=== PATIENT | male | born 1960 | race Caucasian/White ===

== ENCOUNTER 2021-11-08 09:42 | Inpatient (IN) ==
--- NOTE | 2021-11-08 10:03 | Emergency Department Note ---
Impression & Plan Acute exacerbation of chronic obstructive pulmonary disease, Sepsis, COVID-19 ED Provider Note NAME: RAFA HUSSEIN AGE: 61 SEX: M : 1960 ARRIVES VIA: Walk-In INFORMANT: Patient, ED PROVIDER(S): Kraig Jimenez MD Chief Complaint: Shortness of breath, fever HPI: Patient presents with the above complaints. The patient states that he has had some worsening shortness of breath and exertional dyspnea over the last 1 week. Patient has a known history of COPD. Patient does follow with Dr. Sanders with pulmonology. The patient does not take an steroids during this bout of shortness of breath. The patient is a chronic smoker. Patient did have a fever that began at 3 AM this morning and given this coupled with his shortness of breath he presented here for further evaluation and treatment. The patient is not vaccinated for COVID-19 he was not tested prior. The patient should not take anything for his fever today. Patient denies any chest pain. Patient does Complain of some mild lower back discomfort but no falls trauma heavy lifting twisting or turning. Patient denies any lower extremity numbness tingling or bowel or bladder incontinence or retention. The patient denies any dysuria or hematuria the patient had a recent bowel movement. ROS: See HPI for pertinent positives and negatives. A total of 10 systems were reviewed and otherwise negative. Past medical history: See below Surgical history: See below Social history: See below Physical Exam: GENERAL: Wearing a mask. EYE EXAM: Normal conjunctiva. PERRL, no anisocoria and EOM's grossly intact w/o pain. NECK: Supple, no nuchal rigidity, no adenopathy, non-tender. No signs of meningismus. FROM of the neck with good chin to chest and neck extension. No stridor. LUNGS: Mild inspiratory and expiratory wheezes throughout. Normal chest wall mechanics. HEART: Tachycardic and regular, no MRG. ABDOMEN: Abdomen soft, non-tender, normo-active bowel sounds, no masses, no rebound or guarding. BACK: No reproducible midline or paraspinal low back pain. No CVA TTP. SKIN: No rashes and no bruising. UPPER EXTREMITIES: Upper extremities are grossly normal. LOWER EXTREMITIES: Grossly normal, no edema. No numbness or weakness. Negative Homans' sign bilaterally. NEURO EXAM: A&O x3, cranial nerves II-XII grossly intact, normal speech, moves all 4 extremities. Differential diagnoses: Sepsis, UTI, pneumonia, metabolic, electrolyte abnormalities, cardiac sources, intracerebral event, toxicologic, neurologic, as well as other pathologies. Course: Patient was seen and evaluated the bedside. Full history physical exam was performed. EKG interpreted by me Sinus tachycardia, rate of 105, normal intervals, normal axis, no ST elevations. Imaging Studies: See Below Cardiac monitoring: An order was placed for continuous cardiac monitoring. The monitor shows a rate of 107 with tachycardic and regular rhythm. MDM: Patient was seen due to concern for shortness of breath in the setting of fever. Blood work is obtained the patient did have IV fluids ordered antipyretics, antibiotics and a COVID swab. Patient was also ordered a breathing treatment, magnesium and steroids. Patient is a normal white count H&H and platelet count. The patient's kidney function is unremarkable. Hyponatremia noted at 130. The patient's magnesium low at 1.6. Magnesium is already ordered. Troponin is not elevated. COVID positive. Pro-Ministerio is negative. Patient's chest x-ray is negative. Patient was admitted to the medicine service by Dr. Bell. Patient did have some intermittent hypoxia at 89% but with deep breathing with rates up to 93%. Past Med/Surg History Medical History Alcohol abuse Allergies Asthma-COPD overlap syndrome Chronic obstructive pulmonary disease COPD exacerbation COPD, group C, by GOLD 2017 classification Dyspnea Esophageal thickening Lung nodule < 6cm on CT Moderate persistent asthma Rash and nonspecific skin eruption Tobacco abuse Tobacco use disorder Surgical History History of knee surgery Family History Father Diabetes Heart disease Hypertension Brother Diabetes Aunt Diabetes Uncle Diabetes Other No significant family history Denies family history of Ovarian cancer Prostate cancer Myocardial infarction Breast cancer Lung cancer Colorectal cancer Stroke Social History Smoking Status: Current every day smoker Tobacco Type: Cigarettes Age Started Using Tobacco: 17; Cigarettes Per Day: 5-10; Second Hand Exposure: No; Hx Alcohol Use: Yes Alcohol type: beer Hx Substance Use: No Preferred Language: Palauan Communication Ability: Effective Visual Impairment: No Limitations Hearing Ability: Normal marital status: Current Living Situation: Spouse current occupational status: employed Feels Safe at Home: Yes Childhood Exposure to Second-Hand Smoke: No Allergies Allergies Allergy/AdvReac Type Severity Reaction Status Date / Time No Known Allergies Allergy Verified 02/03/21 23:37 Home Meds Previous Rx's Medication Instructions Recorded albuterol sulfate 90 mcg/actuation 2 inh inhalation QID PRN shortness 09/21/21 aerosol inhaler (Ventolin HFA) of breath or wheezing #8.5 grams tiotropium bromide 2.5 2 puff inhalation DAILY #4 grams 09/21/21 mcg/actuation mist for inhalation (Spiriva Respimat) fluticasone furoate 200 1 inh inhalation DAILY #60 ea 10/16/21 mcg-vilanterol 25 mcg/dose inhalation powder (Breo Ellipta) ipratropium 0.5 mg-albuterol 3 mg 3 ml inhalation Q6H PRN wheezing 10/16/21 (2.5 mg base)/3 mL nebulization #90 mL soln azithromycin 250 mg tablet See Rx Instructions PO .COMPLEX #6 10/19/21 tabs roflumilast 500 mcg tablet 500 mcg PO DAILY #30 tabs 10/19/21 (Daliresp) Results & Data (ED) Vital Signs Vital Signs - 24 hr 11/08/21 09:52 11/08/21 11:00 11/08/21 11:00 Temperature 38.2 C H Temperature Source Temporal Artery Scan Pulse Rate 110 H Pulse Rate [Apical] 105 H Pulse Rhythm [Apical] Respiratory Rate 20 26 H 26 H Respiratory Effort / Characteristics Pursed Lip Short of Breath Pursed Lip Short of Breath Respiratory Depth Respiratory Pattern Tachypnea Blood Pressure 120/75 Blood Pressure [Left Arm] 171/95 H Blood Pressure Mean 90 Blood Pressure Mean [Left Arm] 120 Pulse Oximetry 93 100 100 Oxygen Delivery Method Room Air Nebulizer Nebulizer Sepsis Recent Fever Within 48 Hours No Sepsis New/Unexplained Change in Mental Status N/A Sepsis Action Taken by Nursing No Action Required 11/08/21 11:00 11/08/21 12:00 11/08/21 14:07 Temperature Temperature Source Pulse Rate Pulse Rate [Apical] 112 H 103 H Pulse Rhythm [Apical] Regular Respiratory Rate 24 20 Respiratory Effort / Characteristics Non-Labored Respiratory Depth Normal Respiratory Pattern Blood Pressure Blood Pressure [Left Arm] 141/77 H 131/81 Blood Pressure Mean Blood Pressure Mean [Left Arm] 98 97 Pulse Oximetry 100 94 93 Oxygen Delivery Method Nebulizer Room Air Room Air Sepsis Recent Fever Within 48 Hours Sepsis New/Unexplained Change in Mental Status Sepsis Action Taken by Group Home Medications Current Medication List: was personally reviewed by me Laboratory Data Attestation: I reviewed the patient's lab results. Result diagrams: 11/08/21 10:47 11/08/21 10:47 Lab Results 11/08/21 11/08/21 11/08/21 Range/Units 10:47 10:47 10:47 WBC 5.34 (4.8-10.8) K/ul RBC 4.58 L (4.63-6.08) M/uL Hgb 14.2 (14.0-18.0) g/dl Hct 41.0 (40.1-51.0) % MCV 89.5 (80.0-100.0) fL MCH 31.0 (25.0-34.0) pg MCHC 34.6 (32.0-36.0) g/dL RDW Std Deviation 43.0 (36.4-46.3) fL RDW Coeff of Scott 13.0 (11.5-14.5) % Plt Count 306 (130-400) K/uL MPV 9.7 (9.4-12.4) fL Immature Gran % (Auto) 0.6 % Neut % (Auto) 65.3 % Lymph % (Auto) 6.4 % Colbert % (Auto) 23.4 % Eos % (Auto) 3.4 % Baso % (Auto) 0.9 % Neut # (Auto) 3.49 (1.4-6.5) K/uL Lymph # (Auto) 0.34 L (1.2-3.4) K/uL [place] # (Auto) 1.25 H (0.24-0.82) K/uL Eos # (Auto) 0.18 (0-0.50) K/uL Baso # (Auto) 0.05 (0-0.2) K/uL Immature Gran # (Auto) 0.03 H (0.00-0.02) K/uL PT 10.9 (9.0-12.0) Seconds INR 1.0 (0.9-1.1) APTT 31.3 H (21.0-31.0) Seconds PTT Ratio 1.1 D-Dimer (0-500) ug/L FEU Sodium 130 L (136-145) mmol/L Potassium 3.9 (3.5-5.1) mmol/L Chloride 96 L (98-107) mmol/L Carbon Dioxide 24 (21-32) mmol/L Anion Gap 10 (3-11) BUN 10 (6-23) mg/dl Creatinine 0.69 (0.6-1.4) mg/dl Est Cr Clr Drug Dosing 92.0 ml/min Est GFR ( Amer) 117.9 ml/min Est GFR (Non-Af Amer) 101.7 ml/min BUN/Creatinine Ratio 14.5 (10-20) Glucose 89 (70-99(Fasting)) mg/dl Lactate (0.4-2.0) mmol/L Calcium 8.7 (8.5-10.1) mg/dl Magnesium 1.6 L (1.7-2.4) mg/dl Total Bilirubin 0.4 (0.2-1.0) mg/dl AST 16 (13-39) U/L ALT 13 (7-52) U/L Alkaline Phosphatase 58 (34-104) U/L Troponin I High Sens 10.7 (0-20) pg/ml C-Reactive Protein (0-0.5) mg/dl Total Protein 6.7 (6.0-8.3) gm/dl Albumin 4.0 (3.4-5.0) gm/dl Globulin 2.7 (2.5-4.0) gm/dl Albumin/Globulin Ratio 1.5 (0.9-2) Procalcitonin (0-0.5) ng/ml SARS-CoV-2, RNA, NAAT (NEGATIVE) 11/08/21 11/08/21 11/08/21 Range/Units 10:47 10:47 10:47 WBC (4.8-10.8) K/ul RBC (4.63-6.08) M/uL Hgb (14.0-18.0) g/dl Hct (40.1-51.0) % MCV (80.0-100.0) fL MCH (25.0-34.0) pg MCHC (32.0-36.0) g/dL RDW Std Deviation (36.4-46.3) fL RDW Coeff of Scott (11.5-14.5) % Plt Count (130-400) K/uL MPV (9.4-12.4) fL Immature Gran % (Auto) % Neut % (Auto) % Lymph % (Auto) % Colbert % (Auto) % Eos % (Auto) % Baso % (Auto) % Neut # (Auto) (1.4-6.5) K/uL Lymph # (Auto) (1.2-3.4) K/uL [place] # (Auto) (0.24-0.82) K/uL Eos # (Auto) (0-0.50) K/uL Baso # (Auto) (0-0.2) K/uL Immature Gran # (Auto) (0.00-0.02) K/uL PT (9.0-12.0) Seconds INR (0.9-1.1) APTT (21.0-31.0) Seconds PTT Ratio D-Dimer 300 (0-500) ug/L FEU Sodium (136-145) mmol/L Potassium (3.5-5.1) mmol/L Chloride (98-107) mmol/L Carbon Dioxide (21-32) mmol/L Anion Gap (3-11) BUN (6-23) mg/dl Creatinine (0.6-1.4) mg/dl Est Cr Clr Drug Dosing ml/min Est GFR ( Amer) ml/min Est GFR (Non-Af Amer) ml/min BUN/Creatinine Ratio (10-20) Glucose (70-99(Fasting)) mg/dl Lactate 1.0 (0.4-2.0) mmol/L Calcium (8.5-10.1) mg/dl Magnesium (1.7-2.4) mg/dl Total Bilirubin (0.2-1.0) mg/dl AST (13-39) U/L ALT (7-52) U/L Alkaline Phosphatase (34-104) U/L Troponin I High Sens (0-20) pg/ml C-Reactive Protein (0-0.5) mg/dl Total Protein (6.0-8.3) gm/dl Albumin (3.4-5.0) gm/dl Globulin (2.5-4.0) gm/dl Albumin/Globulin Ratio (0.9-2) Procalcitonin < 0.05 (0-0.5) ng/ml SARS-CoV-2, RNA, NAAT (NEGATIVE) 11/08/21 11/08/21 Range/Units 10:47 10:53 WBC (4.8-10.8) K/ul RBC (4.63-6.08) M/uL Hgb (14.0-18.0) g/dl Hct (40.1-51.0) % MCV (80.0-100.0) fL MCH (25.0-34.0) pg MCHC (32.0-36.0) g/dL RDW Std Deviation (36.4-46.3) fL RDW Coeff of Scott (11.5-14.5) % Plt Count (130-400) K/uL MPV (9.4-12.4) fL Immature Gran % (Auto) % Neut % (Auto) % Lymph % (Auto) % Colbert % (Auto) % Eos % (Auto) % Baso % (Auto) % Neut # (Auto) (1.4-6.5) K/uL Lymph # (Auto) (1.2-3.4) K/uL [place] # (Auto) (0.24-0.82) K/uL Eos # (Auto) (0-0.50) K/uL Baso # (Auto) (0-0.2) K/uL Immature Gran # (Auto) (0.00-0.02) K/uL PT (9.0-12.0) Seconds INR (0.9-1.1) APTT (21.0-31.0) Seconds PTT Ratio D-Dimer (0-500) ug/L FEU Sodium (136-145) mmol/L Potassium (3.5-5.1) mmol/L Chloride (98-107) mmol/L Carbon Dioxide (21-32) mmol/L Anion Gap (3-11) BUN (6-23) mg/dl Creatinine (0.6-1.4) mg/dl Est Cr Clr Drug Dosing ml/min Est GFR ( Amer) ml/min Est GFR (Non-Af Amer) ml/min BUN/Creatinine Ratio (10-20) Glucose (70-99(Fasting)) mg/dl Lactate (0.4-2.0) mmol/L Calcium (8.5-10.1) mg/dl Magnesium (1.7-2.4) mg/dl Total Bilirubin (0.2-1.0) mg/dl AST (13-39) U/L ALT (7-52) U/L Alkaline Phosphatase (34-104) U/L Troponin I High Sens (0-20) pg/ml C-Reactive Protein 0.80 H (0-0.5) mg/dl Total Protein (6.0-8.3) gm/dl Albumin (3.4-5.0) gm/dl Globulin (2.5-4.0) gm/dl Albumin/Globulin Ratio (0.9-2) Procalcitonin (0-0.5) ng/ml SARS-CoV-2, RNA, NAAT POSITIVE A* (NEGATIVE) Administered Medications Remdesivir 200 mg/ Sodium (Chloride) 250 mls @ 125 mls/hr IV TODAY@1330 STA; Protocol Stop: 11/08/21 15:02 Last Admin: 11/08/21 14:04 Dose: 125 mls/hr Documented By: BONIFACIO Discontinued Medications Acetaminophen (Acetaminophen 500 Mg Tab) 1,000 mg PO NOW STA Stop: 11/08/21 10:26 Last Admin: 11/08/21 10:55 Dose: 1,000 mg Documented By: CARLOS Albuterol (Albut/Ipratrop 3mg/0.5mg Neb 3 Ml Vial) 12 ml INH ONE STA Stop: 11/08/21 10:25 Last Admin: 11/08/21 10:59 Dose: 12 ml Documented By: CARLOS Sodium Chloride (Nss 1000ml) 1,000 mls @ 999 mls/hr IV .Q1H1M LIAM Stop: 11/08/21 11:25 Last Infusion: 11/08/21 12:40 Dose: 0 mls/hr Documented By: Admin: 11/08/21 10:55 Dose: 999 mls/hr Documented By: CARLOS Sodium Chloride (Nss 1000ml) 1,000 mls @ 999 mls/hr IV .Q1H1M LIAM Stop: 11/08/21 12:30 Last Infusion: 11/08/21 12:40 Dose: 0 mls/hr Documented By: Admin: 11/08/21 10:55 Dose: 999 mls/hr Documented By: CARLOS Magnesium Sulfate/Dextrose (Magnesium Sulfate / D5w) 1 gm in 100 mls @ 100 mls/hr IV NOW STA Stop: 11/08/21 11:24 Last Infusion: 11/08/21 14:07 Dose: 0 mls/hr Documented By: Admin: 11/08/21 11:40 Dose: 100 mls/hr Documented By: CHIO Ceftriaxone Sodium (Rocephin) 2,000 mg in 70 mls @ 140 mls/hr IV NOW STA Stop: 11/08/21 10:55 Last Infusion: 11/08/21 11:53 Dose: 0 mls/hr Documented By: Admin: 11/08/21 10:58 Dose: 140 mls/hr Documented By: CARLOS Methylprednisolone (Methylprednisolone 125 Mg/2 Ml Vial) 125 mg IV NOW STA Stop: 11/08/21 10:25 Last Admin: 11/08/21 10:56 Dose: 125 mg Documented By: CARLOS Imaging Data Radiologist's Impression: Chest X-Ray 11/08/21 10:24 XR chest 1V portable CLINICAL HISTORY: SEPSIS COMPARISON STUDY: Chest CT October 12, 2020. Chest radiograph February 03, 2021. FINDINGS: Lung volumes are normal. Lungs are clear. There is no pneumothorax or pleural effusion. Cardiac size is normal. Mediastinal contours are normal. There is no evidence for pulmonary edema. IMPRESSION: No acute cardiopulmonary findings. ACT 112: Negative or not required by law. Electronically signed by: Javed Longo M.D. 11/08/2021 11:03 AM Discharge Plan Visit Data Chief Complaint: Fever Stated Complaint: FEVER,SOB,BODY ACHES ED Provider: Kraig Jimenez Discharge Problem: Acute exacerbation of chronic obstructive pulmonary disease, Sepsis, COVID-19 Patient Disposition: Admitted As Inpatient Forms Stand Alone Forms: [facility] Prescriptions Prescriptions: No Action albuterol sulfate [Ventolin HFA] 90 mcg/actuation HFA aerosol inhaler 2 inh INH QID PRN (Reason: shortness of breath or wheezing) Qty: 8.5 5RF Spiriva Respimat 2.5 mcg/actuation mist 2 puff INH DAILY Qty: 4 5RF Breo Ellipta 200-25 mcg/dose blister with device 1 inh INH DAILY Qty: 60 5RF ipratropium-albuterol 0.5 mg-3 mg(2.5 mg base)/3 mL solution for nebulization 3 ml INH Q6H PRN (Reason: wheezing) Qty: 90 5RF azithromycin 250 mg tablet See Rx Instructions PO .COMPLEX Qty: 6 0RF Label Comments: Patient still taking, he was told to take every other day Rx Instructions: For 250 mg dose pack: take 500 mg today (day 1), then 250 mg for 4 days (days 2-5) PO Daliresp 500 mcg tablet 500 mcg PO DAILY Qty: 30 5RF Referrals Referrals: PCP,NO [Primary Care Provider] -
[2021-11-08] MEDS ORDERED: methylPREDNISolone 125 MG/2 ML VIAL IV STA (10:24)
[2021-11-08] MEDS ORDERED: ALBUT/IPRATROP 3MG/0.5MG NEB 3 ML VIAL INH STA (10:24)
[2021-11-08] MEDS ORDERED: ACETAMINOPHEN 500 MG TAB PO STA (10:25)
[2021-11-08] MEDS ORDERED: MAGNESIUM SULFATE / D5W 1 GM/100 ML BAG IV STA (10:25)
[2021-11-08] MEDS ORDERED: cefTRIAXone SODIUM 2,000 MG/70 ML BAG IV STA (10:26)
[2021-11-08] MEDS ORDERED: SODIUM CHLORIDE 0.9% 1000ML 1,000 ML IV SCH ×2 (10:30→11:30)
--- NOTE | 2021-11-08 11:04 | XRay Report ---
XR chest 1V portable CLINICAL HISTORY: SEPSIS COMPARISON STUDY: Chest CT October 12, 2020. Chest radiograph February 03, 2021. FINDINGS: Lung volumes are normal. Lungs are clear. There is no pneumothorax or pleural effusion. Car diac size is normal. Mediastinal contours are normal. There is no evidence for pulmonary edema. IMPRESSION: No acute cardiopulmonary findings. ACT 112: Negative or not required by law. Electronically signed by: Javed Longo M.D. 11/08/2021 11:03 AM
[2021-11-08 11:21] LABS: Basophils # (auto) 0.05 K/uL (0-0.2); Basophils % (auto) 0.9 %; Eosinophils # (auto) 0.18 K/uL (0-0.50); Eosinophils % (auto) 3.4 %; Hemoglobin 14.2 g/dl (14.0-18.0); Immature Granulocytes # (auto) 0.03 K/uL (0.00-0.02); Immature Granulocytes % (auto) 0.6 %; Lymphocytes # (auto) 0.34 K/uL (1.2-3.4); Lymphocytes % (auto) 6.4 %; Mean Corpuscular Hgb Conc 34.6 g/dL (32.0-36.0); Mean Corpuscular Volume 89.5 fL (80.0-100.0); Mean Platelet Volume 9.7 fL (9.4-12.4); Monocytes # (auto) 1.25 K/uL (0.24-0.82); Monocytes % (auto) 23.4 %; Neutrophils # (auto) 3.49 K/uL (1.4-6.5); Neutrophils % (auto) 65.3 %; Platelet Count 306 K/uL (130-400); Red Blood Count 4.58 M/uL (4.63-6.08); White Blood Count 5.34 K/ul (4.8-10.8)
[2021-11-08 11:34] LABS: Albumin Globulin Ratio 1.5 (0.9-2); BUN Creatinine Ratio 14.5 (10-20); Bilirubin,Total 0.4 mg/dl (0.2-1.0); Calcium 8.7 mg/dl (8.5-10.1); Est GFR (African American) 117.9 ml/min; Est GFR (Non-African American) 101.7 ml/min; Globulin 2.7 gm/dl (2.5-4.0); Magnesium 1.6 mg/dl (1.7-2.4); Potassium 3.9 mmol/L (3.5-5.1); Total Protein 6.7 gm/dl (6.0-8.3)
[2021-11-08 11:38] LABS: Partial Thromboplastin Ratio 1.1; Partial Thromboplastin Time 31.3 Seconds (21.0-31.0); Prothrombin Time 10.9 Seconds (9.0-12.0)
[2021-11-08 11:40] LABS: Troponin I High Sensitivity 10.7 pg/ml (0-20)
--- NOTE | 2021-11-08 12:21 | History & Physical Report ---
Date of Service November 08, 2021 Assessment & Plan (1) COVID-19: Plan: 1 day of symptoms on day of admission Unvaccinated Procalcitonin negative O2 sats < 94% on room air Remdesivir Dexamethasone 6mg IV BID (increased dose due to COPD exacerbation) Inventive spirometer and flutter valve (2) COPD exacerbation: Plan: Dexamethasone 6mg IV BID Combivent 2 puffs QID - can switch to nebulizers if ineffective but trying to reduce aerosol procedures with COVID-19 Doxycycline 100mg PO BID (switched from his usual azithromycin prophylaxis Continue his usual maintenance inhalers or hospital formulary equivalent (3) COPD, group C, by GOLD 2017 classification: Plan: As above FEV1/FVC 45% (4) Esophageal thickening: Plan: Noted on prior CT, recommend outpaitent EGD but for now especially while on steroids will start pantoprazole 40mg PO daily (5) Hypomagnesemia: Plan: Mg level 1.6. Mg sulphate 1g IV given. Plan VTE Prophylaxis - d-dimer normal, Lovenox 40mg SQ daily Diet - heart healthy Disposition - admit to med/tele Admission and Anticipated Discharge Date Admission Date: November 08, 2021 History of Present Illness Chief Complaint: Shortness of breath Primary Care Provider: NO PCP Allen Hernandez is a 61 year old male with COPD-asthma overlap who presents to the ER with shortness of breath, fever and generalized myalgias. Symptoms started with fever last night up to 101 F. He reports feeling his normal self yesterday although also notes some increased wheezing over the last week and needing his nebulizer more frequently which he put down to the increased humidity. He denies any sore throat, nasal congestion, sinus pain, loss of taste or smell, chest pain, abdominal pain or diarrhea. He was recently smoking 1 to 2 cigarettes a day up until 1 to 2 weeks ago when he quit smoking on advice of his wooden furniture polisher. In the ER he was diagnosed with COVID-19 and given mild hypoxia 90% on room air he was referred to medicine for admission and ongoing management of this. Allergies Allergy/AdvReac Type Severity Reaction Status Date / Time No Known Allergies Allergy Verified 02/03/21 23:37 Home Medications Medication Instructions Recorded Confirmed Type albuterol sulfate 90 mcg/actuation 2 inh inhalation QID PRN shortness 09/21/21 11/08/21 Rx aerosol inhaler (Ventolin HFA) of breath or wheezing #8.5 grams tiotropium bromide 2.5 2 puff inhalation DAILY #4 grams 09/21/21 11/08/21 Rx mcg/actuation mist for inhalation (Spiriva Respimat) fluticasone furoate 200 1 inh inhalation DAILY #60 ea 10/16/21 11/08/21 Rx mcg-vilanterol 25 mcg/dose inhalation powder (Breo Ellipta) ipratropium 0.5 mg-albuterol 3 mg 3 ml inhalation Q6H PRN wheezing 10/16/21 11/08/21 Rx (2.5 mg base)/3 mL nebulization #90 mL soln azithromycin 250 mg tablet See Rx Instructions PO .COMPLEX #6 10/19/21 11/08/21 Rx tabs roflumilast 500 mcg tablet 500 mcg PO DAILY #30 tabs 10/19/21 11/08/21 Rx (Daliresp) Past Med/Surg History Medical History Alcohol abuse Allergies Asthma-COPD overlap syndrome Chronic obstructive pulmonary disease COPD exacerbation COPD, group C, by GOLD 2017 classification Dyspnea Esophageal thickening Lung nodule < 6cm on CT Moderate persistent asthma Rash and nonspecific skin eruption Tobacco abuse Tobacco use disorder Surgical History History of knee surgery Family History Father Diabetes Heart disease Hypertension Brother Diabetes Aunt Diabetes Uncle Diabetes Other No significant family history Denies family history of Ovarian cancer Prostate cancer Myocardial infarction Breast cancer Lung cancer Colorectal cancer Stroke Social History Smoking Status: Former smoker Tobacco Type: Cigarettes Age Started Using Tobacco: 17; Cigarettes Per Day: few per week; Second Hand Exposure: No; Hx Alcohol Use: Yes Alcohol type: beer Hx Substance Use: No Preferred Language: Turkmen Communication Ability: Effective Visual Impairment: No Limitations Hearing Ability: Normal Mailroom Courier Required: No Beliefs That Will Affect Care: None marital status: Current Living Situation: Spouse current occupational status: employed Other Information That Helps Us Care for You: No Feels Safe at Home: Yes Safety Concerns: Feels Safe At This Time Childhood Exposure to Second-Hand Smoke: No Review of Systems Review of Systems: All systems reviewed & are unremarkable except as noted in HPI & below Physical Exam Constitutional: well developed; + not well nourished and no acute distress Eyes: PERRL, conjunctivae normal, anicteric sclerae ENMT: external ear and nose normal, oropharynx normal Neck: trachea midline, no thyromegaly Respiratory: normal respiratory effort and + prolonged expiratory phase; no respiratory distress Auscultation: + wheezes (expiratory); no diminished lung sounds, no crackles, no rales and no rhonchi Cardiovascular: Rate/Rhythm: regular rhythm and + tachycardic Heart Sounds: no murmur Extremities: normal capillary refill; no calf tenderness and no pedal edema Gastrointestinal (Abdomen): normal bowel sounds, soft, nontender, no hepatosplenomegaly Musculoskeletal: no cyanosis or clubbing, extremities motor strength 5/5 Skin: no rashes, warm and dry Neurologic: moves all extremities and awake; no focal motor deficits and not confused Psychiatric: A+Ox3, euthymic affect Genitourinary: no CVA tenderness Results & Data Results & Data ([facility]) Vital Signs (Past 12 Hours) Vital Signs Temp Pulse Pulse Resp BP BP Pulse Ox 11/08/21 11:00 100 11/08/21 11:00 26 H 100 11/08/21 11:00 105 H 26 H 171/95 H 100 11/08/21 09:52 38.2 C H 110 H 20 120/75 93 O2 Del Method 11/08/21 11:00 Nebulizer 11/08/21 11:00 Nebulizer 11/08/21 11:00 Nebulizer 11/08/21 09:52 Room Air Laboratory Results Abnormal lab results 11/08/21 11/08/21 11/08/21 Range/Units 10:47 10:47 10:47 RBC 4.58 L (4.63-6.08) M/uL Lymph # (Auto) 0.34 L (1.2-3.4) K/uL [place] # (Auto) 1.25 H (0.24-0.82) K/uL Immature Gran # (Auto) 0.03 H (0.00-0.02) K/uL APTT 31.3 H (21.0-31.0) Seconds Sodium 130 L (136-145) mmol/L Chloride 96 L (98-107) mmol/L Magnesium 1.6 L (1.7-2.4) mg/dl SARS-CoV-2, RNA, NAAT (NEGATIVE) 11/08/21 Range/Units 10:53 RBC (4.63-6.08) M/uL Lymph # (Auto) (1.2-3.4) K/uL [place] # (Auto) (0.24-0.82) K/uL Immature Gran # (Auto) (0.00-0.02) K/uL APTT (21.0-31.0) Seconds Sodium (136-145) mmol/L Chloride (98-107) mmol/L Magnesium (1.7-2.4) mg/dl SARS-CoV-2, RNA, NAAT POSITIVE A* (NEGATIVE) Diagnostic Findings XR chest 1V portable CLINICAL HISTORY: SEPSIS COMPARISON STUDY: Chest CT October 12, 2020. Chest radiograph February 03, 2021. FINDINGS: Lung volumes are normal. Lungs are clear. There is no pneumothorax or pleural effusion. Cardiac size is normal. Mediastinal contours are normal. There is no evidence for pulmonary edema. IMPRESSION: No acute cardiopulmonary findings. Medications Administered ER Medications Given: Duoneb 12ml NEB NSS 1L bolus Solu-medrol 125mg IV Magnesium sulphate 1g IV Ceftriaxone 2g IV ECG Indication: SOB/dyspnea Rhythm: sinus tachycardia Findings: + PAC Comparison ECG Date: from (Feb 04, 2021) Change: the following changes noted (PACs now present) Code Status & VTE Plan Code Status Full VTE Prophylaxis Plan VTE Prophylaxis will be ordered: Yes PG Care Time/CCT Total # of Minutes Spent Total Time Spent with Patient: Total time spent is greater than 50% in coordination of care (as documented) at patient's floor/unit and/or counseling patient: Coding Level of Care Code 36243 Initial Inpt Care Lvl 3 Diagnoses COVID-19 U07.1 COPD exacerbation J44.1 COPD, group C, by GOLD 2017 classification J44.9 Esophageal thickening K22.8 Hypomagnesemia E83.42
[2021-11-08 12:51] LABS: D Dimer 300 ug/L FEU (0-500)
[2021-11-08] MEDS ORDERED: REMDESIVIR 200 MG in SODIUM CHLORIDE 0.9% 210 ML IV STA (13:03)
[2021-11-08] MEDS ORDERED: POLYETHYLENE (MIRALAX) 17 GM PACK PO PRN (17:53)
[2021-11-08] MEDS ORDERED: ACETAMINOPHEN 325 MG TAB PO PRN (17:53)
[2021-11-08] MEDS ORDERED: IPRATROPIUM BROMIDE/ALBUTEROL respimat INH INH SCH (17:53)
--- NOTE | 2021-11-08 18:01 | Electrocardiogram Report ---
Test Reason : Blood Pressure : / mmHG Vent. Rate : 105 BPM Atrial Rate : 105 BPM P-R Int : 138 ms QRS Dur : 080 ms QT Int : 334 ms P-R-T Axes : 071 067 070 degrees QTc Int : 441 ms Sinus tachycardia with Premature atrial complexes Otherwise normal ECG When compared with ECG of 04-FEB-2021 01:38, Premature atrial complexes are now Present Confirmed by All Márquez ([id number]) on 11/08/2021 6:00:51 PM Referred By: Confirmed By:Constantino Márquez
[2021-11-08] MEDS: ALBUTEROL HFA 8 GM INHALER INH SCH ×2 (18:11→19:26)
[2021-11-08] MEDS: IPRATROPIUM BROMIDE HFA INHALER INH SCH ×2 (19:26→19:28)
[2021-11-08] MEDS: DOXYCYCLINE HYCLATE 100 MG CAP PO SCH (20:37)
[2021-11-08] MEDS: PANTOprazole 40 MG TAB PO SCH (20:37)
[2021-11-08] MEDS: dexAMETHasone 6 MG in SYRINGE 0 ML IV SCH (20:38)
[2021-11-08] MEDS ORDERED: ENOXAPARIN INJ 40 MG/0.4 ML SYR SQ SCH (21:00)
[2021-11-09 06:33] LABS: Hemoglobin 14.7 g/dl (14.0-18.0); Immature Granulocytes # (auto) 0.03 K/uL (0.00-0.02); Immature Granulocytes % (auto) 0.5 %; Lymphocytes # (auto) 0.59 K/uL (1.2-3.4); Lymphocytes % (auto) 10.7 %; Mean Corpuscular Hemoglobin 30.7 pg (25.0-34.0); Mean Corpuscular Volume 87.7 fL (80.0-100.0); Mean Platelet Volume 9.8 fL (9.4-12.4); Monocytes # (auto) 0.68 K/uL (0.24-0.82); Monocytes % (auto) 12.3 %; Neutrophils # (auto) 4.23 K/uL (1.4-6.5); Neutrophils % (auto) 76.5 %; Platelet Count 324 K/uL (130-400); RDW Coefficient of Variation 12.8 % (11.5-14.5); RDW Standard Deviation 41.1 fL (36.4-46.3); Red Blood Count 4.79 M/uL (4.63-6.08); White Blood Count 5.53 K/ul (4.8-10.8)
[2021-11-09 07:06] LABS: Albumin Globulin Ratio 1.6 (0.9-2); Albumin Level 3.9 gm/dl (3.4-5.0); BUN Creatinine Ratio 17.9 (10-20); Bilirubin,Total 0.3 mg/dl (0.2-1.0); Calcium 8.8 mg/dl (8.5-10.1); Creatinine Clr Calc Pharmacy 94.8 ml/min; Est GFR (African American) 119.4 ml/min; Globulin 2.5 gm/dl (2.5-4.0); Potassium 4.1 mmol/L (3.5-5.1); Total Protein 6.4 gm/dl (6.0-8.3)
[2021-11-09] MEDS: ALBUTEROL HFA 8 GM INHALER INH SCH ×3 (07:21→15:20)
[2021-11-09] MEDS: IPRATROPIUM BROMIDE HFA INHALER INH SCH ×3 (07:21→15:20)
--- NOTE | 2021-11-09 08:08 | Hospitalist Progress Note ---
Date of Service November 09, 2021 Assessment & Plan (1) COVID-19: Plan: 1st day of symptoms on day of admission Unvaccinated Procalcitonin negative O2 sats < 94% on room air, initially started on Remdesivir, CXR without changes of pneumonia Dexamethasone 6mg IV BID (increased dose due to COPD exacerbation) Inventive spirometer and flutter valve (2) COPD exacerbation: Plan: Dexamethasone 6mg IV BID Combivent 2 puffs QID - can switch to nebulizers if ineffective but trying to reduce aerosol procedures with COVID-19 Doxycycline 100mg PO BID (switched from his usual azithromycin prophylaxis Continue his usual maintenance inhalers or hospital formulary equivalent (3) COPD, group C, by GOLD 2017 classification: Plan: As above FEV1/FVC 45% this may have more of a play in hypoxia than covid, CXR without overt findings (4) Esophageal thickening: Plan: Noted on prior CT, recommend outpaitent EGD but for now especially while on steroids will start pantoprazole 40mg PO daily (5) Hypomagnesemia: Plan: replete Plan VTE Prophylaxis - d-dimer normal, Lovenox 40mg SQ daily Diet - heart healthy Disposition - admit to med/tele Admission and Anticipated Discharge Date Admission Date: November 08, 2021 Results & Data Results & Data ([facility]) Vital Signs (Past 12 Hours) Vital Signs Temp Pulse Pulse Resp BP Pulse Ox O2 Del Method 11/09/21 08:00 89 11/09/21 07:37 98.6 F 92 H 18 147/91 H 94 Room Air 11/09/21 07:23 96 H 16 96 Room Air 11/09/21 03:19 97.9 F 74 16 121/72 97 Room Air 11/08/21 23:11 98.2 F 87 16 133/81 94 Room Air 11/08/21 21:27 Room Air PG Care Time/CCT Total # of Minutes Spent Total Time Spent with Patient: Total time spent is greater than 50% in coordination of care (as documented) at patient's floor/unit and/or counseling patient: Coding Diagnoses COVID-19 U07.1 COPD exacerbation J44.1 COPD, group C, by GOLD 2017 classification J44.9 Esophageal thickening K22.8 Hypomagnesemia E83.42
[2021-11-09] MEDS ORDERED: FLUTICASONE/VILANTEROL 200/25MCG 14 PUFFS/INHALER INH SCH (09:00)
[2021-11-09] MEDS ORDERED: UMECLIDINIUM BROMIDE 62.5MCG/BLISTER 7 PUFFS/INHALER INH SCH ×2 (09:00)
[2021-11-09] MEDS ORDERED: ROFLUMILAST 500 MCG TAB PO SCH (09:00)
[2021-11-09] MEDS ORDERED: dexAMETHasone 6 MG in SYRINGE 0 ML IV SCH (09:00)
[2021-11-09] MEDS: DOXYCYCLINE HYCLATE 100 MG CAP PO SCH (10:22)
[2021-11-09] MEDS: PANTOprazole 40 MG TAB PO SCH (10:22)
[2021-11-09] MEDS: dexAMETHasone 6 MG in SYRINGE 0 ML IV SCH (10:37)
[2021-11-09] MEDS ORDERED: REMDESIVIR 100 MG in SODIUM CHLORIDE 0.9% 230 ML IV SCH (12:00)
--- NOTE | 2021-11-09 14:25 | Discharge Summary ---
Date of Service November 09, 2021 Admission HPI Per Admitting Provider Allen Hernandez is a 61 year old male with COPD-asthma overlap who presents to the ER with shortness of breath, fever and generalized myalgias. Symptoms started with fever last night up to 101 F. He reports feeling his normal self yesterday although also notes some increased wheezing over the last week and needing his nebulizer more frequently which he put down to the increased humidity. He denies any sore throat, nasal congestion, sinus pain, loss of taste or smell, chest pain, abdominal pain or diarrhea. 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 In the ER he was diagnosed with COVID-19 and given mild hypoxia 90% on room air he was referred to medicine for admission and ongoing management of this. Principal Diagnosis COVID infection Acute on chronic respiratory failureCOPD exacerbation Possible bronchitis Discharge Exam The patient appeared stable Vital signs as documented. Lungs surprisingly good air movement no focal loss or wheeze Cardiac exam, Rhythm is regular.. No murmurs, rubs or gallops. Abdominal exam reveals normal bowel sounds, soft non tender, no masses Extremities are nonedematous and both pedal pulses are normal. Neurologic exam is alert and oriented, no focal loss of strength or sensation Skin is without bruises or rashes Psychologically is without concerns for anxiety or depression. Discharge Data Allergies Allergy/AdvReac Type Severity Reaction Status Date / Time No Known Allergies Allergy Verified 02/03/21 23:37 Consultations 11/08/21 12:31 ED Decision to Admit Stat Hospital Course (1) COVID-19: 1st day of symptoms on day of admission Unvaccinated Procalcitonin negative O2 sats < 94% on room air, initially started on Remdesivir, CXR without changes of pneumonia Patient is now on room air even with exertion. He has no signs or symptoms of clinical pneumonia. Will be transition to prednisone at home. Remdsivir truncated due to his improvement (2) COPD exacerbation: Prednisone 20 twice daily for 5 additional days Resume home inhalation medications for COPD Doxycycline 100mg PO BID (switched from his usual azithromycin prophylaxis) (3) COPD, group C, by GOLD 2017 classification: As above FEV1/FVC 45% this may have more of a play in hypoxia than covid, CXR without overt findings (4) Esophageal thickening: Noted on prior CT, recommend outpaitent EGD (5) Hypomagnesemia: replete Total Time Total Time Spent Total Time Spent (In Minutes): It required greater than 30 minutes to prepare this patient for discharge Discharge Plan Discharge Items Patient Disposition: Home - Self-Care Reason For Visit: COVID-19, HYPOXIA Discharge Diagnosis: covid infection copd exacerbation bronchitis Esophageal thickening seen on CT scan recommend discussion with primary care for outpatient follow-up Activity: Per Instructions section Activity Comment: plenty of rest, good food and hydration Non-emergency contact: Primary Care Provider Call non-emergency contact if: your symptoms worsen Follow-up/Referrals: PCP,NO [Primary Care Provider] - Diet: Regular Addtl Attending Provider Instructions: You have been diagnosed with covid infection, it would be recommended that you quarantine yourself for 10 days from your first test or first symptoms, and if at the 10th day you have no symptoms the you can come off quarantine but use common sense precautions. Quarantine means attempting to stay away from people who have not had an active covid infection in the past, and if you have to be around others to wear a mask even if you are indoors, do not share a room to sleep in with others until you are out of quarantine. If you still have symptoms at the 10th day, continue to quarantine until you are symptom free for 48 hours You will be on a steroid taper for your COPD you will be on additional antibiotics for possible bronchitis once completing the doxycycline return to her azithromycin prophylaxis There are some irritation seen to your swallowing tube on CT scan on presentation please discuss this with your primary care provider for possible endoscopic evaluation once her pulmonary status improves Pending Studies at Discharge: Yes (your hepatitis mandatory testing and cultures are pending) Stand-Alone Forms: [facility] [employer] Smoking Cessation Medications and DC Order Prescriptions: New doxycycline hyclate 100 mg Capsule 100 mg PO BID Qty: 10 0RF prednisone 20 mg tablet 20 mg PO BID 5 Days Qty: 10 0RF pantoprazole 40 mg Tablet,Delayed Release (Dr/Ec) 40 mg PO QAM Qty: 30 0RF Continued albuterol sulfate [Ventolin HFA] 90 mcg/actuation HFA aerosol inhaler 2 inh INH QID PRN (Reason: shortness of breath or wheezing) Qty: 8.5 5RF Spiriva Respimat 2.5 mcg/actuation mist 2 puff INH DAILY Qty: 4 5RF Breo Ellipta 200-25 mcg/dose blister with device 1 inh INH DAILY Qty: 60 5RF ipratropium-albuterol 0.5 mg-3 mg(2.5 mg base)/3 mL solution for nebulization 3 ml INH Q6H PRN (Reason: wheezing) Qty: 90 5RF Daliresp 500 mcg tablet 500 mcg PO DAILY Qty: 30 5RF Discontinued azithromycin 250 mg tablet See Rx Instructions PO .COMPLEX Qty: 6 0RF Label Comments: Patient still taking, he was told to take every other day Rx Instructions: For 250 mg dose pack: take 500 mg today (day 1), then 250 mg for 4 days (days 2-5) PO Discharge Orders: Discharge Order (Routine); Ordered 11/09/21 Ordered By: Allen Treviño Admission Data Admit Date/Time: 11/08/21 12:23 Attending Provider: Allen Treviño Admit Provider: Prieto Bell Primary Care Provider: PCP,NO Other Providers: Prieto Bell Coding Level of Care Code D/C DAY MANAGEMENT >30 MINS Diagnoses COVID-19 U07.1 COPD exacerbation J44.1 COPD, group C, by GOLD 2017 classification J44.9 Esophageal thickening K22.8 Hypomagnesemia E83.42
== END 2021-11-09 15:30 | disposition home or self-care (01) | DRG 177 ==
LOC: ED 09:42 → SUATTDRO 12:23 → 2S 12:23

== ENCOUNTER 2023-08-28 01:02 | Inpatient (IN) ==
--- NOTE | 2023-08-28 01:15 | Emergency Department Note ---
Impression & Plan Acute exacerbation of chronic obstructive airways disease ED Provider Note Provider: Mart Baird MD DATE OF SERVICE: 08/28/2023 CHIEF COMPLAINT: Difficulty breathing HISTORY OF PRESENT ILLNESS: Patient is a 63-year-old gentleman history of COPD/asthma presenting here today reporting worsening breathing over the past approximately 5 to 6 days. Worsening over the weekend the last several days. Does not have air conditioning for tomorrow in the warm weather he thinks is contributing. Have been around folks who have recently been sick with a respiratory complaint. Denies fever. No chest pain. Using breathing treatments at home without much improvement. Denies swelling. Denies recent travel. Denies abdominal pain or nausea vomiting or diarrhea. Did receive 125 mg of Solu-Medrol for EMS as well as a DuoNeb. Maybe some slight improvement by the patient's report. PAST MEDICAL HISTORY: As noted above MEDICATIONS: Reviewed home medications. SOCIAL HISTORY: Smoker PHYSICAL EXAM: GENERAL: alert and oriented in no acute distress on stretcher Head: normocephalic and atraumatic EYES: No injection, discharge or icterus. NECK: Trachea midline. ENT: Mucous membranes pink and moist. LUNGS: Airway patent. Some increased work of breathing with diffuse expiratory wheeze appreciable. HEART: Regular rate and rhythm. No chest wall tenderness ABDOMEN: Soft and non-tender, without guarding or rebound. SKIN: Acyanotic, warm, without notable rashes. Mildly diaphoretic upon arrival. EXTREMITIES: Without swelling, tenderness or deformity NEUROLOGICAL: No focal deficits. No aphasia. No facial droop or slurred speech. EK bpm sinus tachycardia with PAC. No acute ST segment elevation or depression with a bit of respiratory artifact a QTc of 448. CONTINUOUS CARDIAC MONITORING: was ordered and showed a heart rate of 90s-120s bpm in normal sinus rhythm to sinus tachycardia occasional PACs 1 view chest x-ray per my interpretation: No evidence of pneumothorax or pulmonary edema. No free air. Normal cardiac silhouette without evidence of pneumonia. Patient's laboratory studies and imaging reviewed. Differential includes Reactive airway disease, pneumonia, pneumothorax, COPD, CHF, infections, cardiac ischemia, pulmonary embolism, musculoskeletal, gastrointestinal, as well as other pathologies. IMPRESSION/MEDICAL DECISION MAKING: Patient with increased work of breathing but not hypoxic upon arrival. Significantly wheezy. Received DuoNeb and 125 mg Solu-Medrol already. Reviewed prior notes and follows with pulmonary for history of asthma/COPD. Given his work of breathing discussed with him he is agreeable for a trial of BiPAP to see if this would help. Will obtain chest x-ray. EKG obtained but denies chest pain. Troponin sent but lower suspicion for ACS. No significant swelling and I doubt fluid overload. With his significant wheezing low suspicion this represents PE. Given additional DuoNeb here. Respiratory viral panel sent. Patient does not appear that encephalopathic. Blood work here does show very slight acidosis 7.32 with a CO2 of 51. Leukocytosis of 13.4 without anemia or thrombocytopenia. Will cover with a dose of azithromycin based on labs. Chest x-ray on my review without findings consistent with pneumonia and will avoid broad-spectrum antibiotics at this time. Patient is more comfortable on the BiPAP. Chemistries without significant renal dysfunction or evidence of hepatitis. Very mild hyponatremia of 133 but do not believe this is contributing. Respiratory viral panel negative. Troponin normal. Discussed with the patient findings and his respiratory status. Will bring him in for further treatment. Patient is agreeable with this plan. Hospitalist team contacted. DIAGNOSIS: Acute COPD exacerbation DISPOSITION: Hospitalist will evaluate Patient was agreeable with this plan. Critical Care I have personally spent 31 minutes of critical care time in the direct management of this patient. This includes bedside care, interpretation of diagnostic studies, and testing, discussion with consultants, patient, and family members, and other required patient management activities. These 31 minutes is in excess of all separately billable procedures. Past Med/Surg History Problem List Acute exacerbation of chronic obstructive airways disease (Acute) Inflammatory arthritis Pseudogout Hand arthritis CMC arthritis Carpal tunnel syndrome Hand numbness Hand weakness Wrist arthritis Allergic rhinitis due to weed pollen Chronic rhinitis Tobacco use Eosinophilic asthma Allergic asthma Severe persistent asthma Hypomagnesemia COPD exacerbation Esophageal thickening Rash and nonspecific skin eruption Allergies Lung nodule < 6cm on CT Moderate persistent asthma Asthma-COPD overlap syndrome Alcohol abuse Tobacco abuse Dyspnea COPD, group C, by GOLD 2017 classification Tobacco use disorder Chronic obstructive pulmonary disease (Chronic) Hypoxia (Acute 04/25/14) Pneumonia (Acute) Medical History Sepsis COVID-19 Surgical History History of knee surgery Family History Father Diabetes Heart disease Hypertension Brother Diabetes Aunt Diabetes Uncle Diabetes Other No significant family history Denies family history of Ovarian cancer Prostate cancer Myocardial infarction Breast cancer Lung cancer Colorectal cancer Stroke Social History Smoking Status: Former smoker Tobacco Type: Cigarettes Age Started Using Tobacco: 17; Cigarettes Per Day: few per week; Second Hand Exposure: No; Do You Dip or Chew Tobacco: No; Hx Alcohol Use: Yes Alcohol type: beer Alcohol Intake Frequency: 4 or More x per/Week Hx Substance Use: No Preferred Language: Bahamian Communication Ability: Effective Visual Impairment: No Limitations Hearing Ability: Normal Exercise Rider Required: No Beliefs That Will Affect Care: None marital status: Current Living Situation: Spouse current occupational status: employed Feels Safe at Home: Yes Childhood Exposure to Second-Hand Smoke: No Diet: regular caffeine: Yes Dental Care, Regularly: No Physical Activity Frequency: Daily Seatbelt Use: always Sunscreen Use: No Assistive Devices: Glasses and Nebulizer Allergies Allergies Allergy/AdvReac Type Severity Reaction Status Date / Time No Known Allergies Allergy Verified 08/11/23 09:26 Home Meds Previous Rx's Medication Instructions Recorded albuterol sulfate 90 mcg/actuation 2 inh inhalation QID PRN shortness 09/02/22 aerosol inhaler (Ventolin HFA) of breath or wheezing #3 Inhalers montelukast 10 mg tablet 10 mg PO DAILY #90 tabs 11/06/22 roflumilast 500 mcg tablet 500 mcg PO DAILY #90 tabs 11/13/22 (Daliresp) ipratropium 0.5 mg-albuterol 3 mg 3 ml inhalation Q6H PRN wheezing 12/09/22 (2.5 mg base)/3 mL nebulization #90 mL soln fluticasone furoate 200 1 inh inhalation DAILY #3 Inhalers 02/26/23 mcg-vilanterol 25 mcg/dose inhalation powder (Breo Ellipta) diclofenac sodium 75 mg 75 mg PO BID #60 tabs 06/25/23 tablet,delayed release tiotropium bromide 2.5 2 puff inhalation DAILY #4 grams 08/11/23 mcg/actuation mist for inhalation (Spiriva Respimat) Results & Data (ED) Vital Signs Vital Signs - 24 hr 08/28/23 01:10 08/28/23 01:13 08/28/23 01:37 Temperature 36.9 C Temperature Source Oral Pulse Rate 110 H 109 H Pulse Rate [Right Finger] Pulse Rhythm Pulse Rhythm [Right Finger] Respiratory Rate 27 H Respiratory Effort / Characteristics Labored Respiratory Depth Normal Respiratory Pattern Regular Tachypnea Blood Pressure 219/118 H Blood Pressure [Right Arm] Blood Pressure Mean 151 Blood Pressure Mean [Right Arm] Blood Pressure Position [Right Arm] Pulse Oximetry 91 96 Oxygen Delivery Method Room Air BiPAP Oxygen Flow Rate Fraction of Inspired Oxygen SaO2/FiO2 Ratio Sepsis Recent Fever Within 48 Hours No Sepsis New/Unexplained Change in Mental Status N/A Sepsis Action Taken by Nursing No Action Required 08/28/23 01:37 08/28/23 01:37 08/28/23 01:41 Temperature Temperature Source Pulse Rate Pulse Rate [Right Finger] 62 101 H Pulse Rhythm Regular Pulse Rhythm [Right Finger] Respiratory Rate 19 22 Respiratory Effort / Characteristics Non-Labored Spontaneous Non-Labored Spontaneous Respiratory Depth Normal Respiratory Pattern Blood Pressure Blood Pressure [Right Arm] Blood Pressure Mean Blood Pressure Mean [Right Arm] Blood Pressure Position [Right Arm] Pulse Oximetry 91 95 96 Oxygen Delivery Method Nasal Cannula Room Air BiPAP Oxygen Flow Rate 2 Fraction of Inspired Oxygen 30 SaO2/FiO2 Ratio Sepsis Recent Fever Within 48 Hours Sepsis New/Unexplained Change in Mental Status Sepsis Action Taken by Nursing 08/28/23 01:43 08/28/23 02:01 08/28/23 03:00 Temperature Temperature Source Pulse Rate 101 H Pulse Rate [Right Finger] 100 H 88 Pulse Rhythm Pulse Rhythm [Right Finger] Regular Respiratory Rate 20 22 18 Respiratory Effort / Characteristics Spontaneous Labored Short of Breath Non-Labored Spontaneous Respiratory Depth Normal Normal Respiratory Pattern Regular Regular Blood Pressure Blood Pressure [Right Arm] 150/98 H 136/97 Blood Pressure Mean Blood Pressure Mean [Right Arm] 115 110 Blood Pressure Position [Right Arm] Semi-fowlers Pulse Oximetry 96 96 97 Oxygen Delivery Method BiPAP BiPAP Oxygen Flow Rate Fraction of Inspired Oxygen 30 30 SaO2/FiO2 Ratio 323 Sepsis Recent Fever Within 48 Hours Sepsis New/Unexplained Change in Mental Status Sepsis Action Taken by Nursing Laboratory Data 08/28/23 01:00 08/28/23 01:00 Lab Results 08/28/23 08/28/23 08/28/23 Range/Units 01:00 01:00 01:00 WBC 13.49 H (4.8-10.8) K/ul RBC 4.90 (4.70-6.10) M/uL Hgb 15.1 (14.0-18.0) g/dl Hct 44.9 (42.0-52.0) % MCV 91.6 (80.0-100.0) fL MCH 30.8 (25.0-34.0) pg MCHC 33.6 (32.0-36.0) g/dL RDW Std Deviation 47.4 H (36.4-46.3) fL RDW Coeff of Scott 14.0 (11.5-14.5) % Plt Count 330 (130-400) K/uL MPV 10.2 (9.4-12.4) fL Immature Gran % (Auto) 0.4 % Neut % (Auto) 60.4 % Lymph % (Auto) 22.2 % Hawkins % (Auto) 9.1 % Eos % (Auto) 7.2 % Baso % (Auto) 0.7 % Neut # (Auto) 8.15 H (1.40-6.50) K/uL Lymph # (Auto) 2.99 (1.20-3.40) K/uL Hawkins # (Auto) 1.23 H (0.11-0.59) K/uL Eos # (Auto) 0.97 H (0.00-0.50) K/uL Baso # (Auto) 0.09 (0.00-0.20) K/uL Immature Gran # (Auto) 0.06 (0.01-0.20) K/uL PT Cancelled 9.8 INR Cancelled 0.9 APTT Cancelled PTT Ratio VBG pH (7.36-7.41) VBG pCO2 (38-50) mmHg VBG pO2 mmHg VBG HCO3 mmol/L VBG O2 Saturation % VBG Base Excess mEq/L Sodium (136-145) mmol/L Potassium (3.5-5.1) mmol/L Chloride (98-107) mmol/L Carbon Dioxide (21-32) mmol/L Anion Gap (3-11) BUN (6-23) mg/dl Creatinine (0.6-1.4) mg/dl Est Cr Clr Drug Dosing ml/min Est GFR ( Amer) ml/min Est GFR (Non-Af Amer) ml/min BUN/Creatinine Ratio (10-20) Glucose (70-99(Fasting)) mg/dl Calcium (8.6-10.3) mg/dl Magnesium (1.7-2.4) mg/dl Total Bilirubin (0.2-1.0) mg/dl AST (13-39) U/L ALT (7-52) U/L Alkaline Phosphatase (34-104) U/L Troponin I High Sens (0-20) pg/ml Total Protein (6.0-8.3) gm/dl Albumin (3.4-5.0) gm/dl Globulin (2.5-4.0) gm/dl Albumin/Globulin Ratio (0.9-2) Adenovirus (PCR) (NotDetected) B. pertussis DNA (PCR) (NotDetected) B.parapertussis DNA PCR (NotDetected) C. pneumoniae DNA (PCR) (NotDetected) Coronavirus OC43 (PCR) (NotDetected) Coronavirus HKU1 (PCR) (NotDetected) Coronavirus 229E (PCR) (NotDetected) SARS-CoV-2 (PCR) (NotDetected) Coronavirus NL63 (PCR) (NotDetected) Human Metapneumovir PCR (NotDetected) Influenza Type A (PCR) (NotDetected) Influenza Type B (PCR) (NotDetected) M. pneumoniae (PCR) (NotDetected) Parainfluenza 1 (PCR) (NotDetected) Parainfluenza 2 (PCR) (NotDetected) Parainfluenza 3 (PCR) (NotDetected) Parainfluenza 4 (PCR) (NotDetected) RSV (PCR) (NotDetected) Entero/Rhino (PCR) (NotDetected) 08/28/23 08/28/23 08/28/23 Range/Units 01:00 01:00 01:09 WBC (4.8-10.8) K/ul RBC (4.70-6.10) M/uL Hgb (14.0-18.0) g/dl Hct (42.0-52.0) % MCV (80.0-100.0) fL MCH (25.0-34.0) pg MCHC (32.0-36.0) g/dL RDW Std Deviation (36.4-46.3) fL RDW Coeff of Scott (11.5-14.5) % Plt Count (130-400) K/uL MPV (9.4-12.4) fL Immature Gran % (Auto) % Neut % (Auto) % Lymph % (Auto) % Hawkins % (Auto) % Eos % (Auto) % Baso % (Auto) % Neut # (Auto) (1.40-6.50) K/uL Lymph # (Auto) (1.20-3.40) K/uL Hawkins # (Auto) (0.11-0.59) K/uL Eos # (Auto) (0.00-0.50) K/uL Baso # (Auto) (0.00-0.20) K/uL Immature Gran # (Auto) (0.01-0.20) K/uL PT INR APTT 29 PTT Ratio Cancelled 1.1 VBG pH 7.32 L (7.36-7.41) VBG pCO2 51 H (38-50) mmHg VBG pO2 38 mmHg VBG HCO3 26 mmol/L VBG O2 Saturation 64.8 % VBG Base Excess -0.5 mEq/L Sodium 133 L (136-145) mmol/L Potassium 4.2 (3.5-5.1) mmol/L Chloride 98 (98-107) mmol/L Carbon Dioxide 27 (21-32) mmol/L Anion Gap 8 (3-11) BUN 13 (6-23) mg/dl Creatinine 0.74 (0.6-1.4) mg/dl Est Cr Clr Drug Dosing 91.0 ml/min Est GFR ( Amer) 113.0 ml/min Est GFR (Non-Af Amer) 97.5 ml/min BUN/Creatinine Ratio 17.6 (10-20) Glucose 143 H (70-99(Fasting)) mg/dl Calcium 9.1 (8.6-10.3) mg/dl Magnesium 1.9 (1.7-2.4) mg/dl Total Bilirubin 0.3 (0.2-1.0) mg/dl AST 20 (13-39) U/L ALT 16 (7-52) U/L Alkaline Phosphatase 88 (34-104) U/L Troponin I High Sens 8.4 (0-20) pg/ml Total Protein 7.2 (6.0-8.3) gm/dl Albumin 4.4 (3.4-5.0) gm/dl Globulin 2.8 (2.5-4.0) gm/dl Albumin/Globulin Ratio 1.6 (0.9-2) Adenovirus (PCR) Not Detected (NotDetected) B. pertussis DNA (PCR) Not Detected (NotDetected) B.parapertussis DNA PCR Not Detected (NotDetected) C. pneumoniae DNA (PCR) Not Detected (NotDetected) Coronavirus OC43 (PCR) Not Detected (NotDetected) Coronavirus HKU1 (PCR) Not Detected (NotDetected) Coronavirus 229E (PCR) Not Detected (NotDetected) SARS-CoV-2 (PCR) Not Detected (NotDetected) Coronavirus NL63 (PCR) Not Detected (NotDetected) Human Metapneumovir PCR Not Detected (NotDetected) Influenza Type A (PCR) Not Detected (NotDetected) Influenza Type B (PCR) Not Detected (NotDetected) M. pneumoniae (PCR) Not Detected (NotDetected) Parainfluenza 1 (PCR) Not Detected (NotDetected) Parainfluenza 2 (PCR) Not Detected (NotDetected) Parainfluenza 3 (PCR) Not Detected (NotDetected) Parainfluenza 4 (PCR) Not Detected (NotDetected) RSV (PCR) Not Detected (NotDetected) Entero/Rhino (PCR) Not Detected (NotDetected) Administered Medications Discontinued Medications Albuterol (Albut/Ipratrop 3mg/0.5mg Neb 3 Ml Vial) 12 ml NEB ONE ONE; Protocol Stop: 08/28/23 01:11 Last Admin: 08/28/23 01:41 Dose: 12 ml Documented By: NDO Azithromycin (Azithromycin 250 Mg Tab) 500 mg PO NOW ONE Stop: 08/28/23 01:39 Last Admin: 08/28/23 01:41 Dose: 500 mg Documented By: ASW Discharge Plan Visit Data Chief Complaint: Shortness of Breath/Dyspnea Stated Complaint: SOB ED Provider: Mart Baird Discharge Problem: Acute exacerbation of chronic obstructive airways disease Patient Disposition: Being Evaluated by Hospitalist Forms Stand Alone Forms: [facility] Prescriptions Prescriptions: No Action albuterol sulfate [Ventolin HFA] 90 mcg/actuation HFA aerosol inhaler 2 inh INH QID PRN (Reason: shortness of breath or wheezing) Qty: 3 3RF montelukast 10 mg tablet 10 mg PO DAILY Qty: 90 3RF Daliresp 500 mcg tablet 500 mcg PO DAILY Qty: 90 3RF ipratropium-albuterol 0.5 mg-3 mg(2.5 mg base)/3 mL solution for nebulization 3 ml INH Q6H PRN (Reason: wheezing) Qty: 90 5RF Breo Ellipta 200-25 mcg/dose blister with device 1 inh INH DAILY Qty: 3 3RF Spiriva Respimat 2.5 mcg/actuation mist 2 puff INH DAILY Qty: 4 5RF diclofenac sodium 75 mg tablet,delayed release (DR/EC) 75 mg PO BID Qty: 60 2RF Referrals Referrals: Thony Shaffer DO [Primary Care Provider] -
[2023-08-28 01:25] LABS: Base Excess VBG -0.5 mEq/L; Basophils # (auto) 0.09 K/uL (0.00-0.20); Basophils % (auto) 0.7 %; Eosinophils # (auto) 0.97 K/uL (0.00-0.50); Eosinophils % (auto) 7.2 %; HCO3 VBG 26 mmol/L; Hematocrit (blood only) 44.9 % (42.0-52.0); Hemoglobin 15.1 g/dl (14.0-18.0); Immature Granulocytes # (auto) 0.06 K/uL (0.01-0.20); Immature Granulocytes % (auto) 0.4 %; Lymphocytes # (auto) 2.99 K/uL (1.20-3.40); Lymphocytes % (auto) 22.2 %; Mean Corpuscular Hemoglobin 30.8 pg (25.0-34.0); Mean Corpuscular Hgb Conc 33.6 g/dL (32.0-36.0); Mean Corpuscular Volume 91.6 fL (80.0-100.0); Mean Platelet Volume 10.2 fL (9.4-12.4); Monocytes # (auto) 1.23 K/uL (0.11-0.59); Monocytes % (auto) 9.1 %; Neutrophils # (auto) 8.15 K/uL (1.40-6.50); Neutrophils % (auto) 60.4 %; Oxygen Saturation VBG 64.8 %; PCO2 VBG 51 mmHg (38-50); PO2 VBG 38 mmHg; Platelet Count 330 K/uL (130-400); RDW Standard Deviation 47.4 fL (36.4-46.3); White Blood Count 13.49 K/ul (4.8-10.8); pH VBG 7.32 (7.36-7.41)
[2023-08-28] MEDS: ALBUT/IPRATROP 3MG/0.5MG NEB 3 ML VIAL NEB ONE (01:41)
[2023-08-28] MEDS: AZITHROMYCIN 250 MG TAB PO ONE (01:41)
[2023-08-28 01:46] LABS: Albumin Globulin Ratio 1.6 (0.9-2); Albumin Level 4.4 gm/dl (3.4-5.0); BUN Creatinine Ratio 17.6 (10-20); Bilirubin,Total 0.3 mg/dl (0.2-1.0); Calcium 9.1 mg/dl (8.6-10.3); Est GFR (Non-African American) 97.5 ml/min; Globulin 2.8 gm/dl (2.5-4.0); Magnesium 1.9 mg/dl (1.7-2.4); Potassium 4.2 mmol/L (3.5-5.1); Total Protein 7.2 gm/dl (6.0-8.3)
[2023-08-28 01:59] LABS: INR 0.9 (0.9-1.1); Partial Thromboplastin Ratio 1.1; Partial Thromboplastin Time 29 Seconds (21-31); Prothrombin Time 9.8 Seconds (9.0-12.0)
[2023-08-28 02:18] LABS: Adenovirus PCR Not Detected (NotDetected); Bordetella parapertussis PCR Not Detected (NotDetected); Bordetella pertussis PCR Not Detected (NotDetected); Chlamydia pneumoniae PCR Not Detected (NotDetected); Coronavirus 229E PCR Not Detected (NotDetected); Coronavirus CoV-2 (COVID19)PCR Not Detected (NotDetected); Coronavirus HKU1 PCR Not Detected (NotDetected); Coronavirus NL63 PCR Not Detected (NotDetected); Coronavirus OC43PCR Not Detected (NotDetected); Human Metapneumovirus PCR Not Detected (NotDetected); Influenza A PCR Not Detected (NotDetected); Influenza B PCR Not Detected (NotDetected); Mycoplasma pneumoniae PCR Not Detected (NotDetected); Parainfluenza Virus 1 PCR Not Detected (NotDetected); Parainfluenza Virus 2 PCR Not Detected (NotDetected); Parainfluenza Virus 3 PCR Not Detected (NotDetected); Parainfluenza Virus 4 PCR Not Detected (NotDetected); Respiratory Syncytial VirusPCR Not Detected (NotDetected); Rhinovirus/Enterovirus PCR Not Detected (NotDetected)
--- NOTE | 2023-08-28 02:43 | History & Physical Report ---
Date of Service August 28, 2023 Assessment & Plan (1) Acute exacerbation of chronic obstructive airways disease: Plan: 63yo male with Asthma-COPD overlap syndrome presenting with acute exacerbation of COPD. Patient endorses several days of progressive SOB, congestion, cough and wheeze. Respiratory distress upon arrival with increased WOB requiring placement of BiPAP. Patient now more comfortable. VBG acceptable. No distress. Likely trigger being weather change - recent heat and humidity. Patient also with component of allergic asthma and is to follow up with Allergy-Immunology regarding potential biologics for asthma management. -Admit to medical with telemetry -Wean BiPAP as tolerated. No home O2 use -Solumedrol 30mg IV BID -DuoNebs q 6 hours scheduled -Albuterol q2hr PRN -Continue Breo -Continue Roflumilast -Continue Singulair -Azithromycin 250mg IV daily -Flutter valve -Incentive spirometry -Smoking cessation - patient still smokes a couple of cigarettes daily. Does not wish to use a patch now Plan F/E/N - Saline lock. Electrolytes WNL. Regular diet as tolerated Ppx - Lovenox Code - Full. NO prior history of intubation Dispo - Admit to medical with telemetry History of Present Illness Chief Complaint: shortness of breath Primary Care Provider: Thony Shaffer DO Allen Hernandez is a pleasant 63yo male with history of Asthma-COPD overlap syndrome. He follows with Pulmonary - most recent PFTs 04/10/23 consistent with severe obstruction with significant bronchodilator response - severe airtrapping with moderately reduced diffusion. Patient is on Breo and Spiriva at home as well as Daliresp. He reports progressively worsening cough, wheeze, chest congestion and SOB for the last several days. His breathing became more difficult with the heat - he doesn't have air conditioning at home. He has been taking his home medications with minimal improvement. He denies fever, chills, chest pain, abdominal pain, nausea, vomiting, diarrhea or urinary complaints. No edema. Patient given Solumedrol 125mg IV by EMS prior to arrival In the ER he is afebrile, tachycardic at 110bpm, hypertensive at 219/118, tachypneic with RR of 27, 91% on RA. VBG 7.32/51/38. BiPAP was placed for increased work of breathing. During my encounter patient appeared to be breathing comfortably, NAD No additional complaints at this time ER Course: Albuterol Azithromycin Allergies Allergy/AdvReac Type Severity Reaction Status Date / Time No Known Allergies Allergy Verified 08/11/23 09:26 Home Medications Medication Instructions Recorded Confirmed Type albuterol sulfate 90 mcg/actuation 2 inh inhalation QID PRN shortness 09/02/22 08/28/23 Rx aerosol inhaler (Ventolin HFA) of breath or wheezing #3 Inhalers montelukast 10 mg tablet 10 mg PO DAILY #90 tabs 11/06/22 08/28/23 Rx roflumilast 500 mcg tablet 500 mcg PO DAILY #90 tabs 11/13/22 08/28/23 Rx (Daliresp) ipratropium 0.5 mg-albuterol 3 mg 3 ml inhalation Q6H PRN wheezing 12/09/22 08/28/23 Rx (2.5 mg base)/3 mL nebulization #90 mL soln fluticasone furoate 200 1 inh inhalation DAILY #3 Inhalers 02/26/23 08/28/23 Rx mcg-vilanterol 25 mcg/dose inhalation powder (Breo Ellipta) diclofenac sodium 75 mg 75 mg PO BID #60 tabs 06/25/23 08/28/23 Rx tablet,delayed release tiotropium bromide 2.5 2 puff inhalation DAILY #4 grams 08/11/23 08/28/23 Rx mcg/actuation mist for inhalation (Spiriva Respimat) Past Med/Surg History Problem List Acute exacerbation of chronic obstructive airways disease (Acute) Inflammatory arthritis Pseudogout Hand arthritis CMC arthritis Carpal tunnel syndrome Hand numbness Hand weakness Wrist arthritis Allergic rhinitis due to weed pollen Chronic rhinitis Tobacco use Eosinophilic asthma Allergic asthma Severe persistent asthma Hypomagnesemia COPD exacerbation Esophageal thickening Rash and nonspecific skin eruption Allergies Lung nodule < 6cm on CT Moderate persistent asthma Asthma-COPD overlap syndrome Alcohol abuse Tobacco abuse Dyspnea COPD, group C, by GOLD 2017 classification Tobacco use disorder Chronic obstructive pulmonary disease (Chronic) Hypoxia (Acute 04/25/14) Pneumonia (Acute) Medical History Sepsis COVID-19 Surgical History History of knee surgery Family History Father Diabetes Heart disease Hypertension Brother Diabetes Aunt Diabetes Uncle Diabetes Other No significant family history Denies family history of Ovarian cancer Prostate cancer Myocardial infarction Breast cancer Lung cancer Colorectal cancer Stroke Social History Smoking Status: Former smoker Tobacco Type: Cigarettes Age Started Using Tobacco: 17; Cigarettes Per Day: few per week; Second Hand Exposure: No; Do You Dip or Chew Tobacco: No; Hx Alcohol Use: Yes Alcohol type: beer Alcohol Intake Frequency: 4 or More x per/Week Hx Substance Use: No Preferred Language: Congolese Communication Ability: Effective Visual Impairment: No Limitations Hearing Ability: Normal Fire Information Officer Required: No Beliefs That Will Affect Care: None marital status: Current Living Situation: Spouse current occupational status: employed Feels Safe at Home: Yes Childhood Exposure to Second-Hand Smoke: No Diet: regular caffeine: Yes Dental Care, Regularly: No Physical Activity Frequency: Daily Seatbelt Use: always Sunscreen Use: No Assistive Devices: Glasses and Nebulizer Review of Systems Review of Systems: All systems reviewed & are unremarkable except as noted in HPI & below Physical Exam Physical Exam: General: patient resting comfortably, NAD, non-toxic in appearance, AA&O x 4, BiPAP in place 10/5, 30% FiO2 Skin: warm, dry, intact, no rashes or lesions HEENT: NC/AT, PERRL, EOMI, anicteric sclera, conjunctiva without injection, external ear normal to inspection and nontender, nares patent, moist mucus membr anes, dentition intact, no oropharyngeal lesions, neck supple, trachea midline, no LAD, no thyromegaly, no JVD Heart: +S1/S2, regular, no m/r/g Lungs: equal air entry bilaterally, coarse breath sounds with end-expiratory wheezing diffusely Abd: +BS, soft, NT/ND, no masses/organomegaly/ascites Ext: warm, 2+ pulses in UE/LE bilaterally, no clubbing/cyanosis or edema Neuro: nonfocal, patient AA&O x 4, speech intact, no facial droop, moving all extremities on command with equal strength 5/5 Results & Data Results & Data Vital Signs (Past 12 Hours) Vital Signs Temp Pulse Pulse Resp BP BP Pulse Ox 08/28/23 02:01 100 H 22 150/98 H 96 08/28/23 01:43 101 H 20 96 08/28/23 01:41 101 H 22 96 08/28/23 01:37 62 19 95 08/28/23 01:37 91 08/28/23 01:37 96 08/28/23 01:13 109 H 08/28/23 01:10 36.9 C 110 H 27 H 219/118 H 91 O2 Del Method O2 Flow Rate FiO2 08/28/23 02:01 BiPAP 08/28/23 01:43 30 08/28/23 01:41 BiPAP 30 08/28/23 01:37 Room Air 08/28/23 01:37 Nasal Cannula 2 08/28/23 01:37 BiPAP 08/28/23 01:13 08/28/23 01:10 Room Air Laboratory Results Laboratory Results WBC 13.49 K/ul (4.8-10.8) H 08/28/23 01:00 RBC 4.90 M/uL (4.70-6.10) 08/28/23 01:00 Hgb 15.1 g/dl (14.0-18.0) 08/28/23 01:00 Hct 44.9 % (42.0-52.0) 08/28/23 01:00 MCV 91.6 fL (80.0-100.0) 08/28/23 01:00 MCH 30.8 pg (25.0-34.0) 08/28/23 01:00 MCHC 33.6 g/dL (32.0-36.0) 08/28/23 01:00 RDW Std Deviation 47.4 fL (36.4-46.3) H 08/28/23 01:00 RDW Coeff of Scott 14.0 % (11.5-14.5) 08/28/23 01:00 Plt Count 330 K/uL (130-400) 08/28/23 01:00 MPV 10.2 fL (9.4-12.4) 08/28/23 01:00 Immature Gran % (Auto) 0.4 % 08/28/23 01:00 Neut % (Auto) 60.4 % 08/28/23 01:00 Lymph % (Auto) 22.2 % 08/28/23 01:00 Cameron % (Auto) 9.1 % 08/28/23 01:00 Eos % (Auto) 7.2 % 08/28/23 01:00 Baso % (Auto) 0.7 % 08/28/23 01:00 Neut # (Auto) 8.15 K/uL (1.40-6.50) H 08/28/23 01:00 Lymph # (Auto) 2.99 K/uL (1.20-3.40) 08/28/23 01:00 Cameron # (Auto) 1.23 K/uL (0.11-0.59) H 08/28/23 01:00 Eos # (Auto) 0.97 K/uL (0.00-0.50) H 08/28/23 01:00 Baso # (Auto) 0.09 K/uL (0.00-0.20) 08/28/23 01:00 Immature Gran # (Auto) 0.06 K/uL (0.01-0.20) 08/28/23 01:00 PT 9.8 Seconds (9.0-12.0) 08/28/23 01:00 PT Cancelled 08/28/23 01:00 INR 0.9 (0.9-1.1) 08/28/23 01:00 INR Cancelled 08/28/23 01:00 APTT 29 Seconds (21-31) 08/28/23 01:00 APTT Cancelled 08/28/23 01:00 PTT Ratio 1.1 08/28/23 01:00 PTT Ratio Cancelled 08/28/23 01:00 VBG pH 7.32 (7.36-7.41) L 08/28/23 01:00 VBG pCO2 51 mmHg (38-50) H 08/28/23 01:00 VBG pO2 38 mmHg 08/28/23 01:00 VBG HCO3 26 mmol/L 08/28/23 01:00 VBG O2 Saturation 64.8 % 08/28/23 01:00 VBG Base Excess -0.5 mEq/L 08/28/23 01:00 Sodium 133 mmol/L (136-145) L 08/28/23 01:00 Potassium 4.2 mmol/L (3.5-5.1) 08/28/23 01:00 Chloride 98 mmol/L (98-107) 08/28/23 01:00 Carbon Dioxide 27 mmol/L (21-32) 08/28/23 01:00 Anion Gap 8 (3-11) 08/28/23 01:00 BUN 13 mg/dl (6-23) 08/28/23 01:00 Creatinine 0.74 mg/dl (0.6-1.4) 08/28/23 01:00 Est Cr Clr Drug Dosing 91.0 ml/min 08/28/23 01:00 Est GFR ( Amer) 113.0 ml/min 08/28/23 01:00 Est GFR (Non-Af Amer) 97.5 ml/min 08/28/23 01:00 BUN/Creatinine Ratio 17.6 (10-20) 08/28/23 01:00 Glucose 143 mg/dl (70-99(Fasting)) H 08/28/23 01:00 Calcium 9.1 mg/dl (8.6-10.3) 08/28/23 01:00 Magnesium 1.9 mg/dl (1.7-2.4) 08/28/23 01:00 Total Bilirubin 0.3 mg/dl (0.2-1.0) 08/28/23 01:00 AST 20 U/L (13-39) 08/28/23 01:00 ALT 16 U/L (7-52) 08/28/23 01:00 Alkaline Phosphatase 88 U/L (34-104) 08/28/23 01:00 Total Protein 7.2 gm/dl (6.0-8.3) 08/28/23 01:00 Albumin 4.4 gm/dl (3.4-5.0) 08/28/23 01:00 Globulin 2.8 gm/dl (2.5-4.0) 08/28/23 01:00 Albumin/Globulin Ratio 1.6 (0.9-2) 08/28/23 01:00 Adenovirus (PCR) Not Detected (NotDetected) 08/28/23 01:09 B. pertussis DNA (PCR) Not Detected (NotDetected) 08/28/23 01:09 B.parapertussis DNA PCR Not Detected (NotDetected) 08/28/23 01:09 C. pneumoniae DNA (PCR) Not Detected (NotDetected) 08/28/23 01:09 Coronavirus OC43 (PCR) Not Detected (NotDetected) 08/28/23 01:09 Coronavirus HKU1 (PCR) Not Detected (NotDetected) 08/28/23 01:09 Coronavirus 229E (PCR) Not Detected (NotDetected) 08/28/23 01:09 SARS-CoV-2 (PCR) Not Detected (NotDetected) 08/28/23 01:09 Coronavirus NL63 (PCR) Not Detected (NotDetected) 08/28/23 01:09 Human Metapneumovir PCR Not Detected (NotDetected) 08/28/23 01:09 Influenza Type A (PCR) Not Detected (NotDetected) 08/28/23 01:09 Influenza Type B (PCR) Not Detected (NotDetected) 08/28/23 01:09 M. pneumoniae (PCR) Not Detected (NotDetected) 08/28/23 01:09 Parainfluenza 1 (PCR) Not Detected (NotDetected) 08/28/23 01:09 Parainfluenza 2 (PCR) Not Detected (NotDetected) 08/28/23 01:09 Parainfluenza 3 (PCR) Not Detected (NotDetected) 08/28/23 01:09 Parainfluenza 4 (PCR) Not Detected (NotDetected) 08/28/23 01:09 RSV (PCR) Not Detected (NotDetected) 08/28/23 01:09 Entero/Rhino (PCR) Not Detected (NotDetected) 08/28/23 01:09 Diagnostic Findings CXR - per my interpretation lungs appear to be hyperinflated, no obvious infiltrate, edema or PTX Code Status & VTE Plan VTE Prophylaxis Plan VTE Prophylaxis will be ordered: Yes PG Care Time/CCT Total # of Minutes Spent Total Time Spent with Patient: Total time spent is greater than 50% in coordination of care (as documented) at patient's floor/unit and/or counseling patient: Coding Level of Care Code 75309 INT INP/OBS CARE 2/55MIN Diagnoses Acute exacerbation of chronic obstructive airways disease J44.1
[2023-08-28 02:48] LABS: Troponin I High Sensitivity 8.4 pg/ml (0-20)
[2023-08-28] MEDS ORDERED: ALBUTEROL 0.5% NEB SOLN 2.5 MG/0.5 ML VIAL NEB PRN (04:19)
[2023-08-28] MEDS ORDERED: ONDANSETRON INJ 2 MG/ML 2 ML VIAL IV PRN (04:19)
[2023-08-28] MEDS ORDERED: ACETAMINOPHEN 325 MG TAB PO PRN (04:19)
[2023-08-28] MEDS: methylPREDNISolone 30 MG in SYRINGE 0 ML IV SCH (04:39)
[2023-08-28] MEDS: ALBUT/IPRATROP 3MG/0.5MG NEB 3 ML VIAL NEB SCH (06:00)
--- NOTE | 2023-08-28 06:47 | XRay Report ---
XR chest 1V portable CLINICAL HISTORY: Dyspnea TECHNIQUE: Single frontal radiograph of the chest was obtained. Comparison: Comparison is made to chest radiograph 05/02/2023 FINDINGS: No lines and tubes are seen. The cardiomediastinal silhouette is normal. The lungs are clear. No evid ence of pleural effusion or pneumothorax. IMPRESSION: No acute abnormalities and in particular no radiographic evidence of pneumonia. ACT 112: Negative or not required by law. Electronically signed by: Issac Walker M.D. 08/28/2023 6:46 AM
--- NOTE | 2023-08-28 07:10 | Hospitalist Progress Note ---
Date of Service August 28, 2023 Assessment & Plan Plan Patient is 63 yo M with PMHx of inflammatory arthritis, lung nodule (< [address]), tobacco use, and asthma-COPD overlap syndrome presenting with acute exacerbation of COPD. Patient endorses several days of progressive SOB, co ngestion, cough and wheeze. Respiratory distress upon arrival with increased WOB requiring placement of BiPAP. Patient now more comfortable. VBG acceptable. No distress. 1) Acute exacerbation of chronic obstructive airways disease: Likely trigger being weather change - recent heat and humidity. Patient also with component of allergic asthma and is to follow up with Allergy-Immunology regarding potential biologics for asthma management. -Wean BiPAP as tolerated. No home O2 use -Solumedrol 30mg IV BID; DuoNebs q 6 hours scheduled; Albuterol q2hr PRN -Continue Breo (steroid, LABA); Continue Roflumilast; Continue Singulair -Azithromycin 250mg IV daily -Flutter valve; Incentive spirometry -Smoking cessation: patient still smokes a couple of cigarettes daily. Does not wish to use a patch now. Plan F/E/N - Saline lock. Electrolytes WNL. Regular diet as tolerated Ppx - Lovenox Code - Full. (no prior history of intubation) Dispo - Admit to medical with telemetry Admission and Anticipated Discharge Date Admission Date: August 28, 2023 Subjective This morning the patient if feeing better this morning, less respiratory distress, Patient does not use O2 at all at home Review of Systems Constitutional: + fatigue; no fever and no chills Respiratory: + cough, + chest congestion, + dyspnea o n exertion and + sputum production (occasional intermittent, no change from baseline) Cardiovascular: no chest pain and no palpitations Gastrointestinal: + vomiting; no abdominal pain, no nausea , no change in bowel habits, no constipation and no diarrhea/loose stools Genitourinary: no dysuria or no urinary frequency Neurologic: no tingling, no numbness and no headache(s) Physical Exam Constitutional: WD/WN, vitals as above Respiratory: Auscultation: + wheezes; + lungs not clear to auscultation and no crackles Cardiovascular: RRR, no murmur, no edema Extremities: normal capillary refill; no calf tenderness and no pedal edema Results & Data Results & Data Vital Signs (Past 12 Hours) Vital Signs Temp Pulse Pulse Resp BP BP Pulse Ox 08/28/23 06:17 102 H 22 95 08/28/23 04:46 08/28/23 04:46 36.2 C L 86 16 139/91 96 08/28/23 03:00 88 18 136/97 97 08/28/23 02:01 100 H 22 150/98 H 96 08/28/23 01:43 101 H 20 96 08/28/23 01:41 101 H 22 96 08/28/23 01:37 62 19 95 08/28/23 01:37 91 08/28/23 01:37 96 08/28/23 01:13 109 H 08/28/23 01:10 36.9 C 110 H 27 H 219/118 H 91 O2 Del Method O2 Flow Rate FiO2 08/28/23 06:17 Nasal Cannula 2 08/28/23 04:46 Nasal Cannula 3 08/28/23 04:46 Nasal Cannula 3 08/28/23 03:00 BiPAP 30 08/28/23 02:01 BiPAP 08/28/23 01:43 30 08/28/23 01:41 BiPAP 30 08/28/23 01:37 Room Air 08/28/23 01:37 Nasal Cannula 2 08/28/23 01:37 BiPAP 08/28/23 01:13 08/28/23 01:10 Room Air
[2023-08-28] MEDS: ROFLUMILAST 500 MCG TAB PO SCH (09:45)
[2023-08-28] MEDS: DICLOFENAC SODIUM 75 MG TABCR PO SCH (09:45)
[2023-08-28] MEDS: MONTELUKAST SODIUM 10 MG TABLET PO SCH (09:45)
[2023-08-28] MEDS: FLUTICASONE/VILANTEROL 200/25MCG 14 PUFFS/INHALER INH SCH (09:46)
[2023-08-28] MEDS: ENOXAPARIN INJ 40 MG/0.4 ML SYR SQ SCH (09:46)
--- NOTE | 2023-08-28 10:13 | Electrocardiogram Report ---
Test Reason : Blood Pressure : / mmHG Vent. Rate : 115 BPM Atrial Rate : 115 BPM P-R Int : 146 ms QRS Dur : 076 ms QT Int : 324 ms P-R-T Axes : 079 076 087 degrees QTc Int : 448 ms Sinus tachycardia with Premature atrial complexes Otherwise normal ECG When compared with ECG of 15-NOV-2021 19:15, Premature ventricular complexes are no longer Present Premature atrial complexes are now Present Vent. rate has increased BY 41 BPM Confirmed by Nicolas Robbins ([id number]) on 08/28/2023 10:12:28 AM Referred By: REFERRED SELF Confirmed By:Nicolas Robbins
--- NOTE | 2023-08-28 15:43 | Discharge Summary ---
Date of Service August 28, 2023 Admission HPI Per Admitting Provider Patient is a pleasant 63 yo male with history of Asthma-COPD overlap syndrome. He follows with Pulmonary - most recent PFTs 04/10/23 consistent with severe obstruction with significant bronchodilator response - severe airtrapping with moderately reduced diffusion. Patient is on Breo and Spiriva at home as well as Daliresp. He reports progressively worsening cough, wheeze, chest congestion and SOB for the last several days. His breathing became more difficult with the heat - he doesn't have air conditioning at home. He has been taking his home medications with minimal improvement. He denies fever, chills, chest pain, abdominal pain, nausea, vomiting, diarrhea or urinary complaints. No edema. Patient given Solumedrol 125mg IV by EMS prior to arrival In the ER he is afebrile, tachycardic at 110bpm, hypertensive at 219/118, tachypneic with RR of 27, 91% on RA. VBG 7.32/51/38. BiPAP was placed for increased work of breathing. During my encounter patient appeared to be breathing comfortably, NAD No additional complaints at this time ER Course: Albuterol Azithromycin Admission Exam Per Admitting Provider General: patient resting comfortably, NAD, non-toxic in appearance, AA&O x 4, BiPAP in place /, 30% FiO2 Skin: warm, dry, intact, no rashes or lesions HEENT: NC/AT, PERRL, EOMI, anicteric sclera, conjunctiva without injection, external ear normal to inspection and nontender, nares patent, moist mucus membranes, dentition intact, no oropharyngeal lesions, neck supple, trachea midline, no LAD, no thyromegaly, no JVD Heart: +S1/S2, regular, no m/r/g Lungs: equal air entry bilaterally, coarse breath sounds with end-expiratory wheezing diffusely Abd: +BS, soft, NT/ND, no masses/organomegaly/ascites Ext: warm, 2+ pulses in UE/LE bilaterally, no clubbing/cyanosis or edema Neuro: nonfocal, patient AA&O x 4, speech intact, no facial droop, moving all extremities on command with equal strength 5/5 Principal Diagnosis COPD exacerbation Discharge Exam Constitutional WD/WN, vitals as above Respiratory Auscultation: + wheezes; + lungs not clear to auscultation and no crackles Cardiovascular RRR, no murmur, no edema Extremities: normal capillary refill; no calf tenderness and no pedal edema Gastrointestinal (Abdomen) normal bowel sounds, soft, nontender, no hepatosplenomegaly Psychiatric A+Ox3, euthymic affect Discharge Data Allergies Allergy/AdvReac Type Severity Reaction Status Date / Time No Known Allergies Allergy Verified 08/11/23 09:26 Consultations 08/28/23 02:16 ED Decision to Admit Stat Hospital Course (1) Acute exacerbation of chronic obstructive airways disease: (2) Tobacco use: (3) Asthma-COPD overlap syndrome: Plan 1) Acute exacerbation of chronic obstructive airways disease: Likely trigger being weather change - recent heat and humidity. Patient also with component of allergic asthma and is to follow up with Allergy-Immunology regarding potential biologics for asthma management. -Weaned off 2 L O2 NC this morning. No home O2 use. -Solumedrol 30mg IV BID; DuoNebs q6 hours scheduled; Albuterol q2hr PRN during inpatient stay. -Continue Breo (steroid, LABA); Continue Roflumilast; Continue Singulair -Flutter valve and Incentive spirometry even as outpatient -Smoking cessation: patient still smokes a couple of cigarettes daily. Does not wish to use a patch now. -Azithromycin 250mg, PO, daily, for 4 more days as outpatient - Steroid taper: prednisone, PO, 60 mg Day 1, 50 mg Day 2, 40 mg Day 3, 30 mg Day 4, 20 mg Day 5, 10 mg Day 6 Total Time Total Time Spent Total Time Spent (In Minutes): <30 Discharge Plan Discharge Items Patient Disposition: Home - Self-Care Reason For Visit: SHORTNESS OF BREATH Discharge Diagnosis: COPD exacerbation Activity: Resume your previous activity Non-emergency contact: Primary Care Provider Call non-emergency contact if: you have any medication questions, your symptoms worsen and your temperature is above 101.5 Follow-up/Referrals: Thony Shaffer DO [Primary Care Provider] - 09/05/23 1:30 pm Diet: Regular Addtl Attending Provider Instructions: You were admitted to the hospital for [_]. You were treated with [_]. A discharge summary will be sent to your primary care physician to ensure continuity of care. Please bring this discharge summary with you to your next office appointment so that your provider can review it at that time. Follow-up appointments: We have requested a follow-up appointment with your primary care physician within one week of discharge. Please call their office if you do not hear from them. Keep all your follow-up appointments as already scheduled. If you cannot make an appointment, notify your provider. Medications: Your medication list has been reviewed and reconciled upon discharge to ensure accuracy and continuity of care. An updated list of all your medications is included with your hospital discharge paperwork. Please review this list closely, and make note of any changes. We sent a new medication called azithromycin to your pharmacy. Take azithromycin, 250 mg/one tablet, daily, for next four days. We sent a new medication called prednisone to your pharmacy. Take prednisone, 60 mg Day 1, 50 mg Day 2, 40 mg Day 3, 30 mg Day 4, 20 mg Day 5, 10 mg Day 6. Take your medications as instructed; do not skip a dose of your medicines. Make sure all of your doctors know every medicine you are taking (including yiok-qwu-cwdexgz medicines, vitamins, and supplements). Call your primary care provider before taking any new medicines (including bkjl-rlj-eqgxesm medicines, vitamins, and supplements), because some of these may interact with your current medications, or may make your symptoms worse. Tell your primary care provider if you cannot afford your medications. CONTACT YOUR PRIMARY CARE PROVIDER if you experience any of the following: fevers, chills, shortness of breath at rest, symptoms not improving with rescue inhaler Difficulty following your treatment plan, or difficulty taking medications CALL 911 OR GO TO THE EMERGENCY DEPARTMENT if you experience any of the following: Sudden, severe abdominal pain or nausea/vomiting Severe chest pain, or chest pain that radiates (moves) to your jaw or arm Sudden, severe shortness of breath or difficulty breathing Thank you for allowing us to participate in your care Pending Studies at Discharge: No Stand-Alone Forms: [facility] [employer], Smoking Cessation Medications and DC Order Prescriptions: New prednisone 10 mg tablet 10 mg PO DIRECTED Qty: 21 0RF Rx Instructions: see taper instructions: 60 mg, Day 1 50 mg, Day 2 40 mg, Day 3 30 mg, Day 4 20 mg, Day 5 10 mg, Day 6 azithromycin 250 mg tablet 250 mg PO DAILY 4 Days Qty: 4 0RF Rx Instructions: start on day 2 of therapy Continued albuterol sulfate [Ventolin HFA] 90 mcg/actuation HFA aerosol inhaler 2 inh INH QID PRN (Reason: shortness of breath or wheezing) Qty: 3 3RF montelukast 10 mg tablet 10 mg PO DAILY Qty: 90 3RF Daliresp 500 mcg tablet 500 mcg PO DAILY Qty: 90 3RF ipratropium-albuterol 0.5 mg-3 mg(2.5 mg base)/3 mL solution for nebulization 3 ml INH Q6H PRN (Reason: wheezing) Qty: 90 5RF Breo Ellipta 200-25 mcg/dose blister with device 1 inh INH DAILY Qty: 3 3RF Spiriva Respimat 2.5 mcg/actuation mist 2 puff INH DAILY Qty: 4 5RF diclofenac sodium 75 mg tablet,delayed release (DR/EC) 75 mg PO BID Qty: 60 2RF Discharge Orders: Discharge Order (Routine); Ordered 08/28/23 Ordered By: All Beckett Admission Data Admit Date/Time: 08/28/23 02:27 Attending Provider: Nando Mays Admit Provider: Emerita Hammer Primary Care Provider: Thony Shaffer Other Providers: Emerita Hammer Other Interventions: Discharge Summary Assessment (RN) Last Done: 08/28/23 14:44 Supervising Physician Co-Signing Physician Notes I personally examined the patient and verified all rosado points of history and exam, discussed case, and agree with decision making with Dr Beckett feeling better and would like to go home. Off of oxygen since this morning, able to walk around no significant dyspnea. Vitals noted, in general he is awake and alert pleasant no distress. HEENT normocephalic atraumatic mucous membranes moist. Breathing unlabored no accessory muscle use but lungs are quite quietfaint wheeze left upper lung field but otherwise clear but quiet no other rales rhonchi or wheezes good effort. Skin shows no rashes no pallor or icterus. Neuro without focal deficits. COPD exacerbationseems to have been brought on by heat exposure did cause a bit of acute respiratory failure with hypercapniabut clinically this appears to be much better, and he feels well. He is also no longer hypoxic. Now has an air conditioner at home. Safe/stable for home. Finish course of Zithromax for pulmonary anti-inflammatory effect, finish out steroids. Outpatient PCP and pulmonary follow-up. Otherwise as above. Resident Activity Tracking Resident Involvement: Resident Care Provided Care Provided: Adult [facility]
--- NOTE | 2023-08-28 18:10 | Billing Data ---
Date of Service August 28, 2023 Coding Level of Care Code 62256 IN/OBS DISCH 30 MIN/LESS
[2023-08-28] MEDS ORDERED: AZITHROMYCIN 250 MG in DEXTROSE 5% 250 ML IV SCH (21:00)
== END 2023-08-28 17:55 | disposition home or self-care (01) | DRG 190 ==
LOC: ED 01:02 → SUATTDRO 02:27 → OBSVTOIN 02:27 → INTOOBSV 02:27 → EDINP 02:27 → 2N 04:19
DX: T67.8XXA Other effects of heat and light, initial encounter; R00.0 Tachycardia, unspecified; Z86.16 Personal history of COVID-19; F17.210 Nicotine dependence, cigarettes, uncomplicated; J44.1 Chronic obstructive pulmonary disease with (acute) exacerbation; Z83.3 Family history of diabetes mellitus; J96.02 Acute respiratory failure with hypercapnia; J45.50 Severe persistent asthma, uncomplicated; E87.20 Acidosis, unspecified; Y92.89 Other specified places as the place of occurrence of the external cause

== ENCOUNTER 2023-11-17 12:11 | Inpatient (IN) ==
--- NOTE | 2023-11-17 12:36 | Emergency Department Note ---
History of Present Illness General Chief Complaint: Shortness of Breath/Dyspnea Stated Complaint: SOB Time Seen by Provider: 11/17/23 12:21 History of Present Illness Provider Complaint: shortness of breath and "asthma attack" Onset (ago): day(s) (3) Severity: similar to previous episodes Consistency/Duration: + progressively worsening Relieved By: + bronchodilators Exacerbated By: + exertion and + coughing Context: + allergen exposure (Exposed to dust 3 days ago) Known history of: COPD and asthma Associated symptoms: + cough and + wheezing; no fever, no sputum production, no hemoptysis or no chest congestion Treatment prior to arrival: bronchodilator Home Medications Medication Instructions Recorded Confirmed Type fluticasone furoate 200 1 inh inhalation DAILY #3 Inhalers 02/26/23 11/17/23 Rx mcg-vilanterol 25 mcg/dose inhalation powder (Breo Ellipta) tiotropium bromide 2.5 2 puff inhalation DAILY #4 grams 08/11/23 11/17/23 Rx mcg/actuation mist for inhalation (Spiriva Respimat) albuterol sulfate 90 mcg/actuation 2 inh inhalation QID PRN shortness 09/25/23 11/17/23 Rx aerosol inhaler (Ventolin HFA) of breath or wheezing #3 Inhalers diclofenac sodium 75 mg 75 mg PO BID #60 tabs 10/03/23 11/17/23 Rx tablet,delayed release montelukast 10 mg tablet 10 mg PO DAILY #90 tabs 10/22/23 11/17/23 Rx ipratropium 0.5 mg-albuterol 3 mg 3 ml inhalation Q6H PRN wheezing 10/28/23 11/17/23 Rx (2.5 mg base)/3 mL nebulization #90 mL soln roflumilast 500 mcg tablet 500 mcg PO DAILY #90 tabs 10/31/23 11/17/23 Rx (Daliresp) Allergies Allergy/AdvReac Type Severity Reaction Status Date / Time No Known Allergies Allergy Verified 11/17/23 14:14 Past Med/Surg History Problem List (Updated 11/17/23 @ 18:49 by Parth Cifuentes MD) Pneumothorax (Acute) Hyponatremia Pneumothorax, left Acute exacerbation of chronic obstructive airways disease (Acute) Inflammatory arthritis Pseudogout Hand arthritis CMC arthritis Carpal tunnel syndrome Hand numbness Hand weakness Wrist arthritis Allergic rhinitis due to weed pollen Chronic rhinitis Tobacco use Eosinophilic asthma Allergic asthma Severe persistent asthma Hypomagnesemia COPD exacerbation Esophageal thickening Rash and nonspecific skin eruption Allergies Lung nodule < 6cm on CT Moderate persistent asthma Asthma-COPD overlap syndrome (Acute) Alcohol abuse Tobacco abuse Dyspnea COPD, group C, by GOLD 2017 classification Tobacco use disorder Chronic obstructive pulmonary disease (Chronic) Hypoxia (Acute 04/25/14) Pneumonia (Acute) Medical History (Updated 11/17/23 @ 18:49 by Parth Cifuentes MD) Sepsis COVID-19 Surgical History History of knee surgery Family History Father Diabetes Heart disease Hypertension Brother Diabetes Aunt Diabetes Uncle Diabetes Other No significant family history Denies family history of Ovarian cancer Prostate cancer Myocardial infarction Breast cancer Lung cancer Colorectal cancer Stroke Social History Smoking Status: Former smoker Tobacco Type: Cigarettes Age Started Using Tobacco: 17; Cigarettes Per Day: 1-2; Second Hand Exposure: No; Do You Dip or Chew Tobacco: No; Hx Alcohol Use: Yes Alcohol type: beer Alcohol Intake Frequency: 4 or More x per/Week Hx Substance Use: No Preferred Language: Citizen Of [place] Communication Ability: Effective Visual Impairment: No Limitations Hearing Ability: Normal 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 Beliefs That Will Affect Care: None marital status: Current Living Situation: Significant Other current occupational status: employed Feels Safe at Home: Yes Childhood Exposure to Second-Hand Smoke: No Diet: regular caffeine: Yes Dental Care, Regularly: No Physical Activity Frequency: Daily Seatbelt Use: always Sunscreen Use: No Assistive Devices: None Physical Exam 2 Vital Signs: Vital Signs - 24 hr 11/17/23 12:13 11/17/23 12:30 11/17/23 12:59 Temperature 36.6 C Temperature Source Skin Pulse Rate 110 H 88 Pulse Rate [Apical ] Pulse Strength [Ap ical] Respiratory Rate 26 H Respiratory Effort / Characteristics Labored Respiratory Depth Respiratory Patter n Blood Pressure 163/89 H Blood Pressure [Le ft Arm] Blood Pressure Malissa n 113 Blood Pressure Malissa n [Left Arm] Pulse Oximetry 90 90 Oxygen Delivery Me thod Room Air Oxymask Oxygen Flow Rate Sepsis Recent Feve r Within 48 Hours No Sepsis New/Unexpla ined Change in Men theresa Status No Sepsis Action Take n by Nursing No Action Required Oxygen Flow Rate - Titration 10 Pulse Oximetry Pos t Tiitration 95 11/17/23 13:18 11/17/23 13:18 11/17/23 13:30 Temperature Temperature Source Oral Pulse Rate Pulse Rate [Apical ] 94 H Pulse Strength [Ap ical] Normal Respiratory Rate 19 Respiratory Effort / Characteristics Non-Labored Sponta neous Respiratory Depth Normal Respiratory Patter n Blood Pressure Blood Pressure [Le ft Arm] 163/103 H Blood Pressure Malissa n Blood Pressure Malissa n [Left Arm] 123 Pulse Oximetry 100 100 Oxygen Delivery Me thod Oxymask Oxymask Room Air Oxygen Flow Rate 10 10 Sepsis Recent Feve r Within 48 Hours Sepsis New/Unexpla ined Change in Men theresa Status Sepsis Action Take n by Nursing Oxygen Flow Rate - Titration Pulse Oximetry Pos t Tiitration 11/17/23 13:55 11/17/23 14:11 11/17/23 17:04 Temperature Temperature Source Pulse Rate 91 H Pulse Rate [Apical ] 100 H 101 H Pulse Strength [Ap ical] Normal Normal Respiratory Rate 20 19 Respiratory Effort / Characteristics Non-Labored Sponta neous Non-Labored Sponta neous Respiratory Depth Normal Normal Respiratory Patter n Regular Regular Blood Pressure Blood Pressure [Le ft Arm] 112/68 105/72 Blood Pressure Malissa n Blood Pressure Malissa n [Left Arm] 82 83 Pulse Oximetry 95 98 Oxygen Delivery Me thod Nasal Cannula Nasal Cannula Oxygen Flow Rate 2 2 Sepsis Recent Feve r Within 48 Hours Sepsis New/Unexpla ined Change in Men theresa Status Sepsis Action Take n by Nursing Oxygen Flow Rate - Titration Pulse Oximetry Pos t Tiitration Physical Exam: Physical Exam GENERAL: oriented to person, place, and time. appears well-developed and well- nourished. HENT: Exam performed. - Head: Normocephalic and atraumatic. EYES: Conjunctivae and EOM are normal. Right eye exhibits no discharge. Left eye exhibits no discharge. No scleral icterus. NECK: Normal range of motion. Neck supple. No JVD present. CV: Normal rate, regular rhythm, normal heart sounds and intact distal pulses. There is no peripheral edema. Palpable radial pulses bue. PULM/CHEST: Diminished breath sounds bilaterally. Scant expiratory wheezes bilaterally. ABD: The abdomen is soft. There is no tenderness. NEURO: Motor and sensation grossly intact. SKIN: Skin is warm and dry. He is not diaphoretic. PSYCH: normal mood and affect. Behavior is normal. Judgment and thought content normal. Procedures Chest Tube Chest Tube 1: Chest Tube Location: left Chest Tube Prep: Yes betadine prep and sterile drapes applied Local Anesthetic: lidocaine 1% and with epi Amount of anesthesia used (mL): 8 Incision Made With: #11 blade Post Procedure: sterile dressing applied Tube Drainage: none Post Procedure CXR?: Yes Patient Tolerated Procedure: Yes Progress: Procedure note: Procedure: Left Thora vent placement Permit: Procedure benefits risks including those of bleeding infection and alternatives were explained to the patient voiced understanding of the information and signed consent sheet. Questions were sought and answered. Patient agreed to proceed with the plan to place Thora vent. Permit signed and on chart. Indication: Left-sided pneumothorax Physician: Esau Description: Left chest was prepped with ChloraPrep and sterile covers were applied. Second intercostal space was identified in the midclavicular line and 10 cc of lidocaine with epinephrine was injected for analgesia. Incision was made with 11 blade and then Thora vent with trocar was placed through the incision. Pleural cavity was entered and there was oscillation of the red diaphragm on the Thora vent. The Thora vent was advanced over the trocar and then the trocar was removed. Air was aspirated with 40 cc syringe. Red diaphragm continued to oscillate and the Thora vent was secured with the adhesive dressing on it to the patient's anterior chest wall. Complications: None Estimated blood loss: Less than 10 cc Disposition: Patient to be admitted to the medicine service. Course Course 1221: The patient was evaluated in room C5. A complete history and physical exam was performed Cardiac monitoring: An order was placed for continuous cardiac monitoring. The monitor shows a rate of 110 with sinus tachycardia rhythm interpreted by me 1405: Vital signs stable. Patient had a left-sided pneumothorax. Thora vent placed. See procedure note. Discussed case with Dr. Hutchins pulmonology who agreed to be on consult and states that the patient should be admitted to the medicine team and does not need ICU treatment at this time. Dr. Bell's team was notified. Administered Medications Sodium Chloride (Nss) 1,000 mls @ 999 mls/hr IV .Q1H1M ONE Stop: 11/17/23 18:52 Last Admin: 11/17/23 18:06 Dose: 999 mls/hr Documented By: SRAVANTHI Discontinued Medications Acetaminophen (Acetaminophen 500 Mg Tab) 1,000 mg PO NOW STA Stop: 11/17/23 15:07 Last Admin: 11/17/23 15:42 Dose: 1,000 mg Documented By: SRAVANTHI Albuterol (Albut/Ipratrop 3mg/0.5mg Neb 3 Ml Vial) 3 ml NEB NOW STA; Protocol Stop: 11/17/23 12:29 Last Admin: 11/17/23 12:53 Dose: 3 ml Documented By: RODGER Hydromorphone HCl (Hydromorphone Inj 0.5 Mg/0.5 Ml Syr) 0.5 mg IV NOW STA Stop: 11/17/23 17:46 Last Admin: 11/17/23 18:05 Dose: 0.5 mg Documented By: SRAVANTHI Ceftriaxone Sodium (Rocephin) 2,000 mg in 50 mls @ 100 mls/hr IV Q24H LIAM Stop: 11/24/23 16:14 Last Admin: 11/17/23 17:54 Dose: Not Given Documented By: SRAVANTHI Famotidine (Pepcid 20mg Iv Push) 20 mg in 5 mls @ 2.5 mls/min IV NOW STA Stop: 11/17/23 17:57 Last Admin: 11/17/23 18:06 Dose: 2.5 mls/min Documented By: SRAVANTHI Ketorolac Tromethamine (Ketorolac Tromethamine 15 Mg/Ml Vial) 15 mg IV NOW STA Stop: 11/17/23 17:51 Last Admin: 11/17/23 18:06 Dose: 15 mg Documented By: SRAVANTHI Lidocaine/Epinephrine (Lidocaine 2%/Epinephrine 1:100,000 20ml) 20 ml INFIL ONE ONE Stop: 11/17/23 13:09 Last Admin: 11/17/23 13:29 Dose: 20 ml Documented By: NICOLETTE Lorazepam (Lorazepam 2 Mg/1 Ml Vial) 1 mg IV NOW STA Stop: 11/17/23 13:33 Last Admin: 11/17/23 13:40 Dose: 1 mg Documented By: NICOLETTE Morphine Sulfate (Morphine Sulfate 2 Mg/Ml Carp) 2 mg IV NOW STA Stop: 11/17/23 13:33 Last Admin: 11/17/23 13:40 Dose: 2 mg Documented By: NICOLETTE Morphine Sulfate (Morphine Sulfate 2 Mg/Ml Carp) 2 mg IV Q4 PRN PRN Reason: Pain Stop: 12/01/23 16:02 Last Admin: 11/17/23 16:31 Dose: 2 mg Documented By: SRAVANTHI Ondansetron HCl (Ondansetron Inj 2 Mg/Ml 2 Ml Vial) 4 mg IV NOW STA Stop: 11/17/23 13:34 Last Admin: 11/17/23 13:40 Dose: 4 mg Documented By: NICOLETTE Prednisone (Prednisone 50 Mg Tab) 50 mg PO NOW STA Stop: 11/17/23 12:29 Last Admin: 11/17/23 12:53 Dose: 50 mg Documented By: RODGER Medical Decision Making Laboratory Data Attestation: I reviewed the patient's lab results. 11/17/23 12:51 11/17/23 12:51 Lab Results 11/17/23 11/17/23 Range/Units 12:45 12:51 WBC 11.46 H (4.8-10.8) K/ul RBC 5.23 (4.70-6.10) M/uL Hgb 16.5 (14.0-18.0) g/dl Hct 47.5 (42.0-52.0) % MCV 90.8 (80.0-100.0) fL MCH 31.5 (25.0-34.0) pg MCHC 34.7 (32.0-36.0) g/dL RDW Std Deviation 41.3 (36.4-46.3) fL RDW Coeff of Scott 12.5 (11.5-14.5) % Plt Count 338 (130-400) K/uL MPV 9.9 (9.4-12.4) fL Immature Gran % (Auto) 0.4 % Neut % (Auto) 78.8 % Lymph % (Auto) 10.5 % [place] % (Auto) 8.4 % Eos % (Auto) 1.2 % Baso % (Auto) 0.7 % Neut # (Auto) 9.03 H (1.40-6.50) K/uL Lymph # (Auto) 1.20 (1.20-3.40) K/uL [place] # (Auto) 0.96 H (0.11-0.59) K/uL Eos # (Auto) 0.14 (0.00-0.50) K/uL Baso # (Auto) 0.08 (0.00-0.20) K/uL Immature Gran # (Auto) 0.05 (0.01-0.20) K/uL PT 10.6 (9.0-12.0) Seconds INR 1.0 (0.9-1.1) APTT 29 (21-31) Seconds PTT Ratio 1.1 D-Dimer Cancelled VBG pH 7.36 (7.36-7.41) VBG pCO2 45 (38-50) mmHg VBG pO2 33 mmHg VBG HCO3 25 mmol/L VBG O2 Saturation < 60.0 % VBG Base Excess -0.4 mEq/L Sodium 130 L (136-145) mmol/L Potassium 4.3 (3.5-5.1) mmol/L Chloride 96 L (98-107) mmol/L Carbon Dioxide 25 (21-32) mmol/L Anion Gap 9 (3-11) BUN 11 (6-23) mg/dl Creatinine 0.56 L (0.6-1.4) mg/dl Est Cr Clr Drug Dosing 111.8 ml/min Est GFR ( Amer) 126.7 ml/min Est GFR (Non-Af Amer) 109.3 ml/min BUN/Creatinine Ratio 19.6 (10-20) Glucose 92 (70-99(Fasting)) mg/dl Osmolality 274 L (280-300) mOsm/kg Calcium 9.1 (8.6-10.3) mg/dl Troponin I High Sens 6.6 (0-20) pg/ml B-Natriuretic Peptide 59 (0-100) pg/ml Lipase 9 L (11-82) U/L SARS-CoV-2 (PCR) NEGATIVE (Negative) Influenza Type A (PCR) Negative (Neg) Influenza Type B (PCR) Negative (Neg) RSV (RT-PCR) Negative (Neg) Imaging Data Attestation: I personally reviewed and interpreted this imaging study as follows: My Impression: Chest x-ray #1: Left-sided pneumothorax Chest x-ray #2: Significant improvement of left-sided pneumothorax with Thora vent in place CT chest: Thora vent in place with small residual left-sided pneumothorax Radiologist's Impression: Chest X-Ray 11/17/23 12:27 XR chest 1V portable CLINICAL HISTORY: Chest pain, nonspecific TECHNIQUE: Single frontal radiograph of the chest was obtained. Comparison: Comparison is made to chest radiograph 08/28/2023 FINDINGS: No lines and tubes are seen. The cardiomediastinal silhouette is normal. The lungs are clear. Left pneumothorax is seen in the apex and base. IMPRESSION: Left pneumothorax. ACT 112: Negative or not required by law. Electronically signed by: Issac Walker M.D. 11/17/2023 12:57 PM Chest X-Ray 11/17/23 13:52 XR chest 1V portable CLINICAL HISTORY: thoravent placement COMPARISON STUDY: Chest CT July 21, 2023. Chest radiograph November 17, 2023. FINDINGS: The left pneumothorax has significantly decreased in size following pleural catheter placement. Superior pleural separation is 1.3 cm. There is no right pneumothorax. No consolidation is present. Linear left basilar densities represent atelectasis. IMPRESSION: Significant decrease in size of a now small left pneumothorax following pleural catheter placement. ACT 112: Negative or not required by law. Electronically signed by: Javed Longo M.D. 11/17/2023 2:[address] 11/17/23 14:13 CT SCAN OF THE CHEST WITHOUT IV CONTRAST CLINICAL HISTORY: Pneumothorax COMPARISON STUDY: Chest CT dated 07/21/2023. Chest x-ray dated 11/17/2023. TECHNIQUE: CT scan of the thorax was performed from the thoracic inlet to the upper abdomen. Images are reviewed in the axial, sagittal, and coronal planes. IV contrast was not administered for this examination as per the referring clinician. A dose lowering technique was utilized adhering to the principles of ALARA. The examination is compromised by motion artifact, as well as by streak artifact from the arms which could not be elevated above the chest. CT DOSE: 376.35 mGy.cm FINDINGS: Thyroid: Imaged portions of the thyroid gland are normal in size and attenuation. Thoracic aorta: There is mild atherosclerotic calcification of the thoracic aorta, which is normal in caliber and demonstrates standard 3-vessel arch anatomy. Heart: The heart is normal in size and without pericardial effusion. There is coronary artery atherosclerosis. Lungs and pleural spaces: There is moderate emphysema. The trachea and central airways are clear. A left-sided chest tube is in place. This enters between the anterior second and third ribs, with the tip located in the anterior pleural space. There is a small residual apical to basilar pneumothorax. There is a small left pleural effusion atelectasis/consolidation of the left lower lobe. Debris fills the left lower lobe airway. Debris/mucus plugging is also seen within the right lower lobe airways. Diffuse peribronchial thickening is observed. Mediastinum: There is no mediastinal lymphadenopathy. Janette: Not well assessed without IV contrast. Axillae: There is no axillary lymphadenopathy. Upper abdomen: A small hiatal hernia is observed. The left kidney is partially visualized and markedly atrophic. Skeletal structures: The skeletal structures are osteopenic. Degenerative change and hyperkyphosis is seen in the spine. No lytic or blastic bony lesions are seen. Soft tissues: There is mild subcutaneous emphysema in the left upper chest wall. IMPRESSION: 1. A left-sided chest tube is in place as above and there is a small residual apical to basal pneumothorax. 2. Emphysema. 3. There is a small left pleural effusion with atelectasis/consolidation of the left lower lobe. Pneumonia is not excluded and clinical correlation will be required. 4. There is significant fluid/debris filling the left lower lobe airways. Milder secretions/debris are seen within the right lower lobe airways and there is diffuse peribronchial thickening. Correlate clinically for evidence of aspiration. 5. Additional findings as above. ACT 112: Negative or not required by law. Electronically signed by: Easton Raymundo M.D. 11/17/2023 3:02 PM ECG Data Attestation: I personally reviewed and interpreted this ECG as follows: Interpretation: Sinus rhythm with rate of 93. CA 144 QRS [address] elevation or ST depression. [facility] Narrative 1221: The patient was evaluated in room C5. A complete history and physical exam was performed Cardiac monitoring: An order was placed for continuous cardiac monitoring. The monitor shows a rate of 110 with sinus tachycardia rhythm interpreted by me 1405: Vital signs stable. Patient had a left-sided pneumothorax. Thora vent placed. See procedure note. Discussed case with Dr. Hutchins pulmonology who agreed to be on consult and states that the patient should be admitted to the medicine team and does not need ICU treatment at this time. Dr. Bell's team was notified. Impression & Plan Pneumothorax, Asthma-COPD overlap syndrome Discharge Plan Visit Data Chief Complaint: Shortness of Breath/Dyspnea Stated Complaint: SOB ED Provider: Parth Cifuentes Discharge Problem: Pneumothorax, Asthma-COPD overlap syndrome Patient Disposition: Admitted As Inpatient Discharge Instructions Interventions: ED Discharge Assessment Last Done: 11/17/23 18:15 Forms [facility] Pres[facility] Prescriptions: No Action Breo Ellipta 200-25 mcg/dose blister with device 1 inh INH DAILY Qty: 3 3RF albuterol sulfate [Ventolin HFA] 90 mcg/actuation HFA aerosol inhaler 2 inh INH QID PRN (Reason: shortness of breath or wheezing) Qty: 3 3RF diclofenac sodium 75 mg tablet,delayed release (DR/EC) 75 mg PO BID Qty: 60 2RF montelukast 10 mg tablet 10 mg PO DAILY Qty: 90 3RF ipratropium-albuterol 0.5 mg-3 mg(2.5 mg base)/3 mL solution for nebulization 3 ml INH Q6H PRN (Reason: wheezing) Qty: 90 5RF Daliresp 500 mcg tablet 500 mcg PO DAILY Qty: 90 3RF Spiriva Respimat 2.5 mcg/actuation mist 2 puff INH DAILY Qty: 4 5RF Referrals Referrals: Thony Shaffer DO [Primary Care Provider] - Discharge Problem: Pneumothorax Qualifiers: Pneumothorax type: spontaneous, primary Qualified Code(s): J93.11 - Primary spontaneous pneumothorax
[2023-11-17] MEDS: predniSONE 50 MG TAB PO STA (12:53)
[2023-11-17] MEDS: ALBUT/IPRATROP 3MG/0.5MG NEB 3 ML VIAL NEB STA (12:53)
--- NOTE | 2023-11-17 12:58 | XRay Report ---
XR chest 1V portable CLINICAL HISTORY: Chest pain, nonspecific TECHNIQUE: Single frontal radiograph of the chest was obtained. Comparison: Comparison is made to chest radiograph 08/28/2023 FINDINGS: No lines and tubes are seen. The cardiomediastinal silhouette is normal. The lungs are clear. Left pn eumothorax is seen in the apex and base. IMPRESSION: Left pneumothorax. ACT 112: Negative or not required by law. Electronically signed by: Issac Walker M.D. 11/17/2023 12:57 PM
[2023-11-17 13:05] LABS: Base Excess VBG -0.4 mEq/L; HCO3 VBG 25 mmol/L; Oxygen Saturation VBG < 60.0 %; PCO2 VBG 45 mmHg (38-50); PO2 VBG 33 mmHg; pH VBG 7.36 (7.36-7.41)
[2023-11-17 13:15] LABS: Basophils # (auto) 0.08 K/uL (0.00-0.20); Basophils % (auto) 0.7 %; Eosinophils # (auto) 0.14 K/uL (0.00-0.50); Eosinophils % (auto) 1.2 %; Hematocrit (blood only) 47.5 % (42.0-52.0); Hemoglobin 16.5 g/dl (14.0-18.0); Immature Granulocytes # (auto) 0.05 K/uL (0.01-0.20); Immature Granulocytes % (auto) 0.4 %; Lymphocytes % (auto) 10.5 %; Mean Corpuscular Hemoglobin 31.5 pg (25.0-34.0); Mean Corpuscular Hgb Conc 34.7 g/dL (32.0-36.0); Mean Corpuscular Volume 90.8 fL (80.0-100.0); Mean Platelet Volume 9.9 fL (9.4-12.4); Monocytes # (auto) 0.96 K/uL (0.11-0.59); Monocytes % (auto) 8.4 %; Neutrophils # (auto) 9.03 K/uL (1.40-6.50); Neutrophils % (auto) 78.8 %; Platelet Count 338 K/uL (130-400); RDW Coefficient of Variation 12.5 % (11.5-14.5); RDW Standard Deviation 41.3 fL (36.4-46.3); Red Blood Count 5.23 M/uL (4.70-6.10); White Blood Count 11.46 K/ul (4.8-10.8)
[2023-11-17] MEDS: LIDOCAINE 2%/EPINEPHRINE 1:100,000 20ML INFIL ONE (13:29)
[2023-11-17 13:30] LABS: BUN Creatinine Ratio 19.6 (10-20); Calcium 9.1 mg/dl (8.6-10.3); Creatinine Clr Calc Pharmacy 111.8 ml/min; Est GFR (African American) 126.7 ml/min; Est GFR (Non-African American) 109.3 ml/min; Potassium 4.3 mmol/L (3.5-5.1)
[2023-11-17 13:35] LABS: Troponin I High Sensitivity 6.6 pg/ml (0-20)
[2023-11-17 13:40] LABS: Partial Thromboplastin Ratio 1.1; Partial Thromboplastin Time 29 Seconds (21-31); Prothrombin Time 10.6 Seconds (9.0-12.0)
[2023-11-17] MEDS: MoRPHine SULFATE 2 MG/ML CARP IV STA (13:40)
[2023-11-17] MEDS: ONDANSETRON INJ 2 MG/ML 2 ML VIAL IV STA (13:40)
[2023-11-17] MEDS: LORazepam 2 MG/1 ML VIAL IV STA (13:40)
[2023-11-17 13:48] LABS: Influenza A virus by PCR Negative (Neg); Influenza B virus by PCR Negative (Neg); RSV by PCR Negative (Neg); SARS CoV2 RNA(COVID-19) Ceph NEGATIVE (Negative)
--- NOTE | 2023-11-17 14:07 | History & Physical Report ---
Date of Service November 17, 2023 Assessment & Plan (1) Pneumothorax, left: Plan: Worsening SOB at rest x 3 days CXR on arrival revealed left pneumothorax Chest CT ordered, pending Thora-Vent placed in the ED Pulmonology consult appreciated Acetaminophen as needed for pain AM CBC, BMP (2) Hypoxia: Plan: Suspect secondary to #1 Supplemental oxygen as needed to titrate SpO2 88-92% Continuous pulse oximetry (3) Asthma-COPD overlap syndrome: Plan: Continue home inhalers Incentive spirometry, flutter valve Guaifenesin 600 mg p.o. BID for cough (4) Tobacco use disorder: Plan: Patient is a current everyday tobacco cigarette smoker; 1-2 cigarettes/day Continue to encourage cessation Can add nicotine patch if needed (5) Hyponatremia: Plan: Na 130 on arrival; ?Beer potomania SIADH labs ordered, pending Trend BMP (6) Alcohol abuse: Plan: Patient endorses daily alcohol use (6 beers per day) He denies history of alcohol withdrawal or seizures AWSS at risk protocol with Ativan as needed Daily thiamine and folate supplementation (7) Severe persistent asthma: Plan Disposition: Admit to [facility] telemetry Full code Regular diet VTE PPx: SCDs History of Present Illness Chief Complaint: SOB/dyspnea Primary Care Provider: Thony Shaffer DO Allen is a 63-year-old male with PMH of asthmaCOPD overlap syndrome, alcohol use, tobacco use, severe persistent asthma, eosinophilic asthma, pseudogout, and inflammatory arthritis. He presented on 11/16 for worsening SOB x 3 days. Initially, he was exposed to some dust while working on a project over the weekend, and thought this was the cause of his SOB. However, his SOB worsened as the weekend went on. He endorses SOB both at rest and with exertion. For instance, he said he can barely walk to the bathroom today, and had to take 2 tries to get up the steps. He has been taking his home inhalers consistently, and using a nebulizer, which she reports helps for a short period of time. Additionally, he has been using his 's supplemental oxygen (3L NC) over the past 2 days; normally he is not on supplemental oxygen at baseline. No sick contacts. He took his regular morning medicines today. No recent change in medications. He is a current everyday tobacco cigarette smoker; 1 to 2 cigarettes/day. He does report daily alcohol use (6 beers per day), with last drink being yesterday on 11/15. He denies history of alcohol withdrawal or seizures. Following Thora vent placement, he does endorse left-sided chest pain which he rates 7/10 at present; exacerbated by movements; some radiation to the left shoulder and down the left arm. He denies any recent injuries or trauma to the chest wall. To his knowledge, he has never had a pneumothorax in the past. Patient is mildly tachycardic around 100 bpm at time of admission; SpO2 95% on 2L NC. ED course: DuoNeb 3 mL Prednisone 50 mg p.o. Lorazepam 1 mg IV Morphine 2 mg IV Zofran 4 mg IV Xylocaine 2% ROS: Patient endorses chest tightness, dizziness, lightheadedness, SOB at rest and with exertion, productive cough (white sputum production), pleuritic chest pain, and left-sided chest pain rating down the left arm. Patient denies fever, chills, night sweats, orthopnea, VARGAS, hemoptysis, abdominal pain, or N/V/D. Allergies Allergy/AdvReac Type Severity Reaction Status Date / Time No Known Allergies Allergy Verified 11/17/23 14:14 Home Medications Medication Instructions Recorded Confirmed Type fluticasone furoate 200 1 inh inhalation DAILY #3 Inhalers 02/26/23 11/17/23 Rx mcg-vilanterol 25 mcg/dose inhalation powder (Breo Ellipta) tiotropium bromide 2.5 2 puff inhalation DAILY #4 grams 08/11/23 11/17/23 Rx mcg/actuation mist for inhalation (Spiriva Respimat) albuterol sulfate 90 mcg/actuation 2 inh inhalation QID PRN shortness 09/25/23 11/17/23 Rx aerosol inhaler (Ventolin HFA) of breath or wheezing #3 Inhalers diclofenac sodium 75 mg 75 mg PO BID #60 tabs 10/03/23 11/17/23 Rx tablet,delayed release montelukast 10 mg tablet 10 mg PO DAILY #90 tabs 10/22/23 11/17/23 Rx ipratropium 0.5 mg-albuterol 3 mg 3 ml inhalation Q6H PRN wheezing 10/28/23 11/17/23 Rx (2.5 mg base)/3 mL nebulization #90 mL soln roflumilast 500 mcg tablet 500 mcg PO DAILY #90 tabs 10/31/23 11/17/23 Rx (Daliresp) Past Med/Surg History Problem List (Updated 11/18/23 @ 10:05 by Ismael Hutchins MD, [facility]) Abnormal chest CT Pneumothorax (Acute) Hyponatremia Pneumothorax, left Acute exacerbation of chronic obstructive airways disease (Acute) Inflammatory arthritis Pseudogout Hand arthritis CMC arthritis Carpal tunnel syndrome Hand numbness Hand weakness Wrist arthritis Allergic rhinitis due to weed pollen Chronic rhinitis Tobacco use Eosinophilic asthma Allergic asthma Severe persistent asthma Hypomagnesemia COPD exacerbation Esophageal thickening Rash and nonspecific skin eruption Allergies Lung nodule < 6cm on CT Moderate persistent asthma Asthma-COPD overlap syndrome (Acute) Alcohol abuse Tobacco abuse Dyspnea COPD, group C, by GOLD 2017 classification Tobacco use disorder Chronic obstructive pulmonary disease (Chronic) Hypoxia (Acute 04/25/14) Pneumonia (Acute) Medical History (Updated 11/18/23 @ 10:05 by Ismael Hutchins MD, [facility]) Sepsis COVID-19 Surgical History History of knee surgery Family History Father Diabetes Heart disease Hypertension Brother Diabetes Aunt Diabetes Uncle Diabetes Other No significant family history Denies family history of Ovarian cancer Prostate cancer Myocardial infarction Breast cancer Lung cancer Colorectal cancer Stroke Social History Smoking Status: Current every day smoker Tobacco Type: Cigarettes Age Started Using Tobacco: 17; Cigarettes Per Day: 1-2; Second Hand Exposure: No; Do You Dip or Chew Tobacco: No; Hx Alcohol Use: Yes Alcohol type: beer Alcohol Intake Frequency: 4 or More x per/Week Hx Substance Use: No Preferred Language: Khmer Communication Ability: Effective Visual Impairment: No Limitations Hearing Ability: Normal Custodial Aide Required: No Beliefs That Will Affect Care: None marital status: Current Living Situation: Spouse current occupational status: employed Feels Safe at Home: Yes Childhood Exposure to Second-Hand Smoke: No Diet: regular caffeine: Yes Dental Care, Regularly: No Physical Activity Frequency: Daily Seatbelt Use: always Sunscreen Use: No Assistive Devices: Glasses Review of Systems Review of Systems: See HPI above Physical Exam Physical Exam: General: Mild acute distress; anxious; non-toxic appearing; cooperative; SpO2 98% on 2L NC HEENT: normocephalic, atraumatic; no scleral icterus; PERRLA; vision and hearing grossly intact Neck: supple; no lymphadenopathy; trachea midline Skin: warm, dry without signs of tenting; no cyanosis; no rashes, bruising, lesions, or erythema noted CV: Thora-vent in place in the left upper chest wall; left upper chest wall is TTP; RR, tachycardic around 100 bpm; S1/S2 normal; no murmurs/rubs/gallops; pulses intact/symmetric at radial, DP, and PT Lungs: Mild respiratory distress; symmetrical chest wall expansion; inspiratory wheezing bilaterally ABD: Soft, NTP; BS present; no rebound/guarding; no distention MSK: Mild tremors at rest; no edema noted in the LEs b/l, nonerythematous Neuro: A&Ox3; normal mood and affect; fluent speech; no focal deficits; sensation intact in the LEs bilaterally Results & Data Results & Data Vital Signs (Past 12 Hours) Vital Signs Temp Pulse Pulse Resp BP BP Pulse Ox 11/17/23 13:55 100 H 20 112/68 95 11/17/23 13:30 11/17/23 13:18 94 H 19 163/103 H 100 11/17/23 13:18 100 11/17/23 12:59 88 11/17/23 12:13 36.6 C 110 H 26 H 163/89 H 90 O2 Del Method O2 Flow Rate 11/17/23 13:55 Nasal Cannula 2 11/17/23 13:30 Room Air 11/17/23 13:18 Oxymask 10 11/17/23 13:18 Oxymask 10 11/17/23 12:59 11/17/23 12:13 Room Air Laboratory Results Abnormal lab results 11/17/23 Range/Units 12:51 WBC 11.46 H (4.8-10.8) K/ul Neut # (Auto) 9.03 H (1.40-6.50) K/uL [place] # (Auto) 0.96 H (0.11-0.59) K/uL Sodium 130 L (136-145) mmol/L Chloride 96 L (98-107) mmol/L Creatinine 0.56 L (0.6-1.4) mg/dl Lipase 9 L (11-82) U/L Diagnostic Findings Chest X-Ray 11/17/23 12:27 XR chest 1V portable CLINICAL HISTORY: Chest pain, nonspecific TECHNIQUE: Single frontal radiograph of the chest was obtained. Comparison: Comparison is made to chest radiograph 08/28/2023 FINDINGS: No lines and tubes are seen. The cardiomediastinal silhouette is normal. The lungs are clear. Left pneumothorax is seen in the apex and base. IMPRESSION: Left pneumothorax. ACT 112: Negative or not required by law. Electronically signed by: Issac Walker M.D. 11/17/2023 12:57 PM ECG Additional Comments: ECG revealed NSR at 93 bpm; QTc 447 Code Status & VTE Plan Code Status Full code VTE Prophylaxis Plan VTE Prophylaxis will be ordered: Yes Supervising Physician Co-Signing Physician Notes I personally saw and examined the patient. I independently reviewed the labs, EKG, imaging, problem list, medication list, past medical history and family history. I verified all rosado points and agree with Beau Tomas PA-C with the following exceptions and/or additions: 63 year old male presents to the ER with shortness of breath for three days. Chest wall pain only after Thora vent insertion in the ER O/E HS RRR, no murmurs, chest bibasal reduced breath sounds, rhonchi anteriorly A/P Left sided pneumothorax now s/p Thora vent - management per pulmonology, pain control with acetaminophen, Toradol and Dilaudid Aspiration pneumonia - NPO, IV fluids, Unasyn Alcohol use disorder - no current sign of withdrawal PG Care Time/CCT Total # of Minutes Spent Total Time Spent with Patient: Total time spent is greater than 50% in coordination of care (as documented) at patient's floor/unit and/or counseling patient: C[place] [address] INT INP/OBS CARE 3/75MIN Patient Type Established Medical Decision Making High Complexity Diagnoses Pneumothorax, left J93.9 Hypoxia R09.02 Asthma-COPD overlap syndrome J44.9 Tobacco use disorder F17.200 Hyponatremia E87.1 Alcohol abuse F10.10 Severe persistent asthma J45.50
--- NOTE | 2023-11-17 14:17 | XRay Report ---
XR chest 1V portable CLINICAL HISTORY: thoravent placement COMPARISON STUDY: Chest CT July 21, 2023. Chest radiograph November 17, 2023. FINDINGS: The left pneumothorax has significantly decreased in size following pleural catheter placem ent. Superior pleural separation is 1.3 cm. There is no right pneumothorax. No consolidation is prese nt. Linear left basilar densities represent atelectasis. IMPRESSION: Significant decrease in size of a now small left pneumothorax following pleural catheter placement. ACT 112: Negative or not required by law. Electronically signed by: Javed Longo M.D. 11/17/2023 2:16 PM
--- NOTE | 2023-11-17 14:49 | Pulmonary Consultation ---
Date of Consultation November 17, 2023 Assessment & Plan (1) Pneumothorax, left: (2) Asthma-COPD overlap syndrome: (3) Hypoxia: (4) Tobacco use disorder: Plan IMPRESSION: 63-year-old male with a significant past medical history of asthma COPD overlap syndrome, emphysematous lung changes, and ongoing tobacco abuse history who presents in the setting of spontaneous LEFT-sided pneumothorax. RECOMMENDATIONS: 1. LEFT-sided pneumothorax - Status post Thora vent placement. Appears to have reexpansion on follow-up chest x-ray. Will order CT without contrast to assess lung parenchyma for possible sources, especially the patient with underlying emphysematous lung changes. Continue with pain control as you are. Will reassess a.m. chest x-ray. Hopefully, the lung will reexpand without issue and chest tube can be removed within the next day or 2. In the unfortunate event that this does not occur, patient may require thoracic surgery intervention. Will reassess responsiveness to conservative treatment first. 2. Asthma COPD overlap syndrome - Currently managed on Breo, Spiriva, Singulair, and Daliresp. Would continue while inpatient as well. Not bronchospastic. No role for steroids currently. 3. Hypoxia - Likely transient the setting of pneumothorax. Supplemental oxygen as needed. Titrate down to off as able. 4. Tobacco use disorder - Patient would greatly benefit from smoking cessation moving forward. Thank you for allowing us to participate in the care of the pleasant patient. Please refer to my attendings physician for further recommendations. Supervising Physician Co-Signing Physician Notes I saw and evaluated the patient with Daniel Johnson PA-C, and agree with findings and plan as documented in the note. 63-year-old male with past medical history of COPD, actively smoking presented to the hospital with complaints of left-sided chest pain and shortness of breath He was found to have spontaneous left-sided pneumothorax. Thora vent was placed by ER with decrease in size of the pneumothorax. At the time of examination patient already had a Thora vent in place, he was saturating 97-98% on 2 L nasal cannula. He was complaining of significant lymph discomfort at the site of the chest tube. Denied any difficulty swallowing He stated that he has been coughing a lot in the last couple of days. He is compliant with his inhalers. Denies any hemoptysis. Constitutional: No acute distress HEENT: EOMI, PERRLA Respiratory system: Decreased air entry bilaterally, no wheeze, no rhonchi, mild crackles bilateral lower lobes CVS: S1-S2 positive, no murmurs or gallops Abdomen: Soft, nontender, nondistended, positive bowel sounds x4 Extremities: +2 pulses bilaterally radialis/ dorsalis pedis, no cyanosis, no edema Neuro: Awake alert oriented x3 Psych: Normal mood and affect G/U: No [place] Plan: After I connected the Thora went to Pleur-evac there was intermittent +1-week especially when he was coughing or it exerting. CT chest shows total atelectasis of the left lower lobe, this could be compressive atelectasis from the large pneumothorax that he had. Although aspiration with foreign debris cannot be ruled out. Plan will be to do bronchoscopy tomorrow before taking the chest tube out. Avoid positive pressure ventilation Keep O2 saturation between 88-92% Rocephin to be given for 5 days to cover for pneumonia Risk and benefit of the procedure were explained in depth and he agrees to go ahead with the procedure N.p.o. postmidnight Hold heparin Please note the above document was generated using voice recognition software. It may contain grammatical, syntax or spelling errors.Any formal questions or concerns about the content, text or information contained within the body of this dictation should be directly addressed to the provider for clarification. History of Present Illness Reason for Consultation: Spontaneous Pneumothorax Requesting Physician: Dr. Cifuentes Attending Physician: Dr. Bell History of Present Illness 63-year-old male with a history of COPD and tobacco abuse presenting to the pulmonary clinic for follow-up. Last seen 10/15/2022 by NADJA Johnson. At that time he was having a COPD exacerbation and prescribed prednisone and azithromycin. He had a PFT 04/10/2023 which revealed severe airflow obstruction with an FEV1 of 37% and a 12% increase postbronchodilator FEV1. He has severe air trapping with an RV of 234%. DLCO was reduced to 67%. His FEV1 has improved compared to 01/25/2022 and is stable dating back to 12/22/2019. He was seen by allergy and immunology 03/22/2022 who recommended the patient start on Dupixent for eosinophilic asthma. He never started Dupixent due to excessive cost. He has not followed up with allergy and immunology. He remains on Breo 200 mcg daily, Spiriva, Singulair and Daliresp. He had a low-dose CT chest 07/18/2022 which is lung RADS category 2. 4 mm subpleural right upper lobe nodule noted. The patient reports that since of last week he has been complaining of increasing shortness of breath and some central chest discomfort. He denies a cough or recent trauma. He states that he was under the impression that his symptoms were consistent with prior history of COPD exacerbation. He reports no new or changing symptoms otherwise. No productive cough. No hemoptysis. He reports no prior history of pneumothorax. He did contact his primary care provider's office and was referred to the emergency department where he was found to have a large LEFT-sided spontaneous pneumothorax. Thora vent was placed by emergency medicine. Patient admitted for ongoing evaluation and management. Upon assessment in room A1, the patient was awake, alert, and oriented. He reports discomfort at the placement site and some mild ongoing dyspnea, but feels improved from presentation. Allergies Allergy/AdvReac Type Severity Reaction Status Date / Time No Known Allergies Allergy Verified 11/17/23 14:14 Home Medications Medication Instructions Recorded Confirmed Type fluticasone furoate 200 1 inh inhalation DAILY #3 Inhalers 02/26/23 11/17/23 Rx mcg-vilanterol 25 mcg/dose inhalation powder (Breo Ellipta) tiotropium bromide 2.5 2 puff inhalation DAILY #4 grams 08/11/23 11/17/23 Rx mcg/actuation mist for inhalation (Spiriva Respimat) albuterol sulfate 90 mcg/actuation 2 inh inhalation QID PRN shortness 09/25/23 11/17/23 Rx aerosol inhaler (Ventolin HFA) of breath or wheezing #3 Inhalers diclofenac sodium 75 mg 75 mg PO BID #60 tabs 10/03/23 11/17/23 Rx tablet,delayed release montelukast 10 mg tablet 10 mg PO DAILY #90 tabs 10/22/23 11/17/23 Rx ipratropium 0.5 mg-albuterol 3 mg 3 ml inhalation Q6H PRN wheezing 10/28/23 11/17/23 Rx (2.5 mg base)/3 mL nebulization #90 mL soln roflumilast 500 mcg tablet 500 mcg PO DAILY #90 tabs 10/31/23 11/17/23 Rx (Daliresp) Patient History Medical History (Updated 11/17/23 @ 14:53 by Beau Tomas PA-C) Sepsis COVID-19 Surgical History History of knee surgery Family History Father Diabetes Heart disease Hypertension Brother Diabetes Aunt Diabetes Uncle Diabetes Other No significant family history Denies family history of Ovarian cancer Prostate cancer Myocardial infarction Breast cancer Lung cancer Colorectal cancer Stroke Social History Smoking Status: Former smoker Tobacco Type: Cigarettes Age Started Using Tobacco: 17; Cigarettes Per Day: 1-2; Second Hand Exposure: No; Do You Dip or Chew Tobacco: No; Hx Alcohol Use: Yes Alcohol type: beer Alcohol Intake Frequency: 4 or More x per/Week Hx Substance Use: No Preferred Language: Czech Communication Ability: Effective Visual Impairment: No Limitations Hearing Ability: Normal Academic Associate Required: No Beliefs That Will Affect Care: None marital status: Current Living Situation: Significant Other current occupational status: employed Feels Safe at Home: Yes Childhood Exposure to Second-Hand Smoke: No Diet: regular caffeine: Yes Dental Care, Regularly: No Physical Activity Frequency: Daily Seatbelt Use: always Sunscreen Use: No Assistive Devices: None Review of Systems 2 Review of Systems: A complete 10 point review of systems was reviewed with the patient with pertinent positives and negatives as per history of present illness. All else were negative. Physical Exam 2 Physical Exam: VITAL SIGNS Vital signs and nursing notes were reviewed. GENERAL 63-year-old male appearing his stated age who is in no acute distress. Communicates well with provider and answers questions appropriately. SKIN LEFT-sided anterior chest tube site in place. Clean, dry, and intact. NOSE Midline and without cyanosis. MOUTH/OROPHARYNX Without perioral cyanosis. NECK Neck with FROM. LUNGS Chest wall evaluation demonstrates increased chest wall A:P diameter. Auscultation reveals delayed air entry without wheezes, rales, or rhonchi appreciated. CARDIAC RRR with S1/S2. No murmur, rubs, or gallops appreciated. ABDOMEN Abdominal inspection demonstrates a flat abdomen. BS normoactive all four quadrants. No tenderness, palpable masses, or ascites noted. EXTREMITIES Nail clubbing not present. No peripheral cyanosis. No pretibial edema present. +3/5 radial palpated throughout. PSYCH A&Ox3 and cooperates fully with examiner. Pt is very pleasant and interacts well with examiner. Results & Data Results & Data Vital Signs (Past 12 Hours) Vital Signs Temp Pulse Pulse Resp BP BP Pulse Ox 11/17/23 14:11 101 H 19 105/72 98 11/17/23 13:55 100 H 20 112/68 95 11/17/23 13:30 11/17/23 13:18 94 H 19 163/103 H 100 11/17/23 13:18 100 11/17/23 12:59 88 11/17/23 12:30 90 11/17/23 12:13 36.6 C 110 H 26 H 163/89 H 90 O2 Del Method O2 Flow Rate 11/17/23 14:11 Nasal Cannula 2 11/17/23 13:55 Nasal Cannula 2 11/17/23 13:30 Room Air 11/17/23 13:18 Oxymask 10 11/17/23 13:18 Oxymask 10 11/17/23 12:59 11/17/23 12:30 Oxymask 11/17/23 12:13 Room Air Laboratory Results 11/17/23 12:51 11/17/23 12:51 PG Care Time/CCT Total # of Minutes Spent Total Time Spent with Patient: Total time spent is greater than 50% in coordination of care (as documented) at patient's floor/unit and/or counseling patient: Coding Level of Care Code 06726 INT INP/OBS CARE 3/75MIN Diagnoses Pneumothorax, left J93.9 Asthma-COPD overlap syndrome J44.9 Hypoxia R09.02 Tobacco use disorder F17.200
--- NOTE | 2023-11-17 15:03 | Electrocardiogram Report ---
Test Reason : Blood Pressure : */* mmHG Vent. Rate : 93 BPM Atrial Rate : 93 BPM P-R Int : 144 ms QRS Dur : 78 ms QT Int : 360 ms P-R-T Axes : 70 62 72 degrees QTcB Int : 447 ms Normal sinus rhythm Low voltage QRS Borderline ECG When compared with ECG of 28-Aug-2023 01:08, Premature atrial complexes are no longer Present Confirmed by Nicolas Robbins ([id number]) on 11/17/2023 3:03:01 PM Referred By: REFERRED SELF Confirmed By: Nicolas Robbins
--- NOTE | 2023-11-17 15:04 | CT Scan Report ---
CT SCAN OF THE CHEST WITHOUT IV CONTRAST CLINICAL HISTORY: Pneumothorax COMPARISON STUDY: Chest CT dated 07/21/2023. Chest x-ray dated 11/17/2023. TECHNIQUE: CT scan of the thorax was performed from the thoracic inlet to the upper abdomen. Images are reviewed in the axial, sagittal, and coronal planes. IV contrast was not administered for this ex amination as per the referring clinician. A dose lowering technique was utilized adhering to the arti Liriano. The examination is compromised by motion artifact, as well as by streak artifact fr om the arms which could not be elevated above the chest. CT DOSE: 376.35 mGy.cm FINDINGS: Thyroid: Imaged portions of the thyroid gland are normal in size and attenuation. Thoracic aorta: There is mild atherosclerotic calcification of the thoracic aorta, which is normal in caliber and demonstrates standard 3-vessel arch anatomy. Heart: The heart is normal in size and without pericardial effusion. There is coronary artery atheros clerosis. Lungs and pleural spaces: There is moderate emphysema. The trachea and central airways are clear. A l eft-sided chest tube is in place. This enters between the anterior second and third ribs, with the ti p located in the anterior pleural space. There is a small residual apical to basilar pneumothorax. Th ere is a small left pleural effusion atelectasis/consolidation of the left lower lobe. Debris fills t he left lower lobe airway. Debris/mucus plugging is also seen within the right lower lobe airways. Di ffuse peribronchial thickening is observed. Mediastinum: There is no mediastinal lymphadenopathy. Janette: Not well assessed without IV contrast. Axillae: There is no axillary lymphadenopathy. Upper abdomen: A small hiatal hernia is observed. The left kidney is partially visualized and markedl y atrophic. Skeletal structures: The skeletal structures are osteopenic. Degenerative change and hyperkyphosis is seen in the spine. No lytic or blastic bony lesions are seen. Soft tissues: There is mild subcutaneous emphysema in the left upper chest wall. IMPRESSION: 1. A left-sided chest tube is in place as above and there is a small residual apical to basal pneumot horax. 2. Emphysema. 3. There is a small left pleural effusion with atelectasis/consolidation of the left lower lobe. Pneu monia is not excluded and clinical correlation will be required. 4. There is significant fluid/debris filling the left lower lobe airways. Milder secretions/debris ar e seen within the right lower lobe airways and there is diffuse peribronchial thickening. Correlate c linically for evidence of aspiration. 5. Additional findings as above. ACT 112: Negative or not required by law. Electronically signed by: Easton Raymundo M.D. 11/17/2023 3:02 PM
[2023-11-17] MEDS: ACETAMINOPHEN 500 MG TAB PO STA (15:42)
[2023-11-17] MEDS: MoRPHine SULFATE 2 MG/ML CARP IV PRN (16:31)
[2023-11-17] MEDS: cefTRIAXone SODIUM 2,000 MG/50 ML BAG IV SCH (17:54)
[2023-11-17] MEDS ORDERED: LACTATED RINGER'S 1,000 ML IV SCH (18:00)
[2023-11-17] MEDS: HYDROmorphone INJ 0.5 MG/0.5 ML SYR IV STA (18:05)
[2023-11-17] MEDS: KETOROLAC TROMETHAMINE 15 MG/ML VIAL IV STA (18:06)
[2023-11-17] MEDS: SODIUM CHLORIDE 0.9% 1,000 ML IV ONE (18:06)
[2023-11-17] MEDS: FAMOTIDINE 20MG IV PUSH 20 MG/5 ML SYR IV STA (18:06)
[2023-11-17] MEDS ORDERED: ALBUTEROL HFA 8 GM INHALER INH PRN (18:54)
[2023-11-17] MEDS ORDERED: ACETAMINOPHEN 325 MG TAB PO PRN (18:54)
[2023-11-17] MEDS ORDERED: ONDANSETRON INJ 2 MG/ML 2 ML VIAL IV PRN (18:54)
[2023-11-17] MEDS: AMPICILLIN/SULBACTAM SOD 3,000 MG/100 ML BAG IV ONE (18:56)
[2023-11-17] MEDS: SODIUM CHLORIDE 0.9% 1,000 ML IV SCH (18:57)
[2023-11-17] MEDS: ACETAMINOPHEN 1,000 MG/100 ML VIAL IV SCH (19:10)
[2023-11-17] MEDS: HYDROmorphone INJ 0.5 MG/0.5 ML SYR IV PRN (22:12)
[2023-11-17] MEDS: UMECLIDINIUM BROMIDE 62.5MCG/BLISTER 7 PUFFS/INHALER INH SCH (22:53)
[2023-11-17] MEDS: AMPICILLIN/SULBACTAM SOD 3,000 MG/100 ML BAG IV SCH (22:53)
[2023-11-18] MEDS: HYDROmorphone INJ 0.5 MG/0.5 ML SYR IV PRN (03:17)
[2023-11-18 07:15] LABS: BUN Creatinine Ratio 16.9 (10-20); Calcium 8.1 mg/dl (8.6-10.3); Creatinine Clr Calc Pharmacy 107.3 ml/min; Magnesium 1.8 mg/dl (1.7-2.4); Potassium 4.4 mmol/L (3.5-5.1)
--- NOTE | 2023-11-18 07:30 | Hospitalist Progress Note ---
Date of Service November 18, 2023 Assessment & Plan (1) Pneumothorax: (2) Hyponatremia: (3) Pneumothorax, left: (4) Acute exacerbation of chronic obstructive airways disease: (5) Inflammatory arthritis: Plan Pneumothorax, Left -Worsening SOB at rest x 3 days. CXR on arrival revealed left pneumothorax, Thora-Vent placed in ED. -Pulmonology consulted, bronchoscopy completed today which showed significant mucous plugging of left lower lobe. Bronchial washings collected, await micro and cytology reports. -Monitor with routine x-rays, hope to remove Thora-Vent in next few days. If lung failing to reinflate, may need to transfer patient to facility with thor acic surgery. -Will continue with antibiotics in interim. IV methylpred initiated. -Pain control with Dilaudid PRN Tachycardia -Sinus tachycardia with rate up to 110-130s after bronchoscopy -Pain control improved with Dilaudid this afternoon -EKG obtained which showed sinus tachycardia -Suspect that etiology of tachycardia could be pain and/or steroids Hypoxia -Suspect secondary to pneumothorax as above -Supplemental oxygen as needed to titrate SpO2 88-92% -Continuous pulse oximetry Asthma-COPD Overlap Syndrome -Continue home inhalers -Incentive spirometry, flutter valve Tobacco Use Disorder -Current everyday tobacco cigarette smoker; 1-2 cigarettes/day -Can add nicotine patch if needed -Encourage smoking cessation Hyponatremia -Na 130 on arrival, 133 today ?Beer potomania -Daily BMP Alcohol Use Disorder -Patient endorses daily alcohol use (6 beers per day) -Denies history of alcohol withdrawal or seizures -AWSS at risk protocol with Ativan as needed -Daily thiamine and folate supplementation Disposition:Med telemetry Full code Regular diet VTE PPx: SCDs Admission and Anticipated Discharge Date Admission Date: November 17, 2023 Supervising Physician Co-Signing Physician Notes I personally examined the patient and verified all rosado points of history and exam, discussed case, and agree with decision making with Dr Sow seen post bronch - in a lot of pain - worse w deep breath. CXR stable, EKG nonacute, lungs coarse - had neb and dilauded - later revisited sleeping comfortably and breathing unlabored vitals noted first in pain distress later nad and sleeping breathing unlabored. did have coarse rhonchi L but notable air entry imaging / labs / ekg noted pneumothorax, pneumonia, COPD exacerbation - ?popped bleb. treat pneumonia/COPD exac. ongoing thoravent. appreciate pulmonary input holding pharmacologic DVT proph due to procedures - but if ongoing prolonged immobility then likely start lovenox tomorrow otherwise as above Subjective Patient seen and examined at bedside. No acute events reported overnight, patient endorses ongoing pain secondary to the Thora-Vent and states he feels a bit weak since he has been NPO since midnight in preparation for the bronch. He states that compared to admission, his breathing is noticeably improved. Review of Systems Review of Systems: As per above Physical Exam Constitutional: WD/WN, vitals as above Eyes: + anicteric sclerae; no conjunctival abn ormality ENMT: Ears: no external ear abnormality Nose: no external nose abnormality moist mucous membranes Respiratory: Normal respiratory efforts, auscultation limited to anterior lung do due to Thora-Vent. Discomfort noted with deep breaths. Cardiovascular: Rate/Rhythm: regular rhythm and + tachycardic No lower extremity edema Gastrointestinal (Abdomen): Abdomen soft, nondistended, nontender to palpation, no masses appreciated Musculoskeletal: Moves all limbs independently Skin: no rashes, warm and dry Neurologic: No focal defects appreciated Psychiatric: A+Ox3, euthymic affect Results & Data Results & Data Vital Signs (Past 12 Hours) Vital Signs Temp Pulse Pulse Resp BP Pulse Ox O2 Del Method 11/18/23 07:24 76 11/18/23 03:58 36.5 C 77 18 121/77 95 Room Air 11/18/23 00:23 36.6 C 85 18 122/71 92 Room Air 11/17/23 21:47 80 11/17/23 19:56 36.6 C 89 18 159/93 H 94 Room Air 11/17/23 19:30 Nasal Cannula O2 Flow Rate 11/18/23 07:24 11/18/23 03:58 11/18/23 00:23 11/17/23 21:47 11/17/23 19:56 11/17/23 19:30 2 Resident Activity Tracking Resident Involvement: Resident Care Provided Care Provided: Adult Hospital Medicine (1) Pneumothorax Pneumothorax type: spontaneous, primary Qualified Code(s): J93.11 - Primary spontaneous pneumothorax
[2023-11-18 07:34] LABS: Hematocrit (blood only) 38.8 % (42.0-52.0); Hemoglobin 13.4 g/dl (14.0-18.0); Mean Corpuscular Hemoglobin 30.9 pg (25.0-34.0); Mean Corpuscular Hgb Conc 34.5 g/dL (32.0-36.0); Mean Corpuscular Volume 89.6 fL (80.0-100.0); Mean Platelet Volume 10.1 fL (9.4-12.4); Platelet Count 298 K/uL (130-400); RDW Coefficient of Variation 12.5 % (11.5-14.5); RDW Standard Deviation 41.6 fL (36.4-46.3); Red Blood Count 4.33 M/uL (4.70-6.10); White Blood Count 13.11 K/ul (4.8-10.8)
[2023-11-18 07:37] LABS: Basophils # (auto) 0.04 K/uL (0.00-0.20); Basophils % (auto) 0.3 %; Eosinophils # (auto) 0.03 K/uL (0.00-0.50); Eosinophils % (auto) 0.2 %; Immature Granulocytes # (auto) 0.06 K/uL (0.01-0.20); Immature Granulocytes % (auto) 0.5 %; Lymphocytes # (auto) 1.78 K/uL (1.20-3.40); Lymphocytes % (auto) 13.6 %; Monocytes # (auto) 1.41 K/uL (0.11-0.59); Monocytes % (auto) 10.8 %; Neutrophils # (auto) 9.79 K/uL (1.40-6.50); Neutrophils % (auto) 74.6 %
[2023-11-18] MEDS: FLUTICASONE/VILANTEROL 200/25MCG 14 PUFFS/INHALER INH SCH (07:41)
--- NOTE | 2023-11-18 07:51 | XRay Report ---
XR chest 1V portable CLINICAL HISTORY: f/u COMPARISON STUDY: Chest radiograph and chest CT November 17, 2023. FINDINGS: Left pleural catheter remains in place. A small left pneumothorax has continued to decrease in size. Superior pleural separation now measures 7 mm. There is persistent left lower lung retrocar diac opacity. There is no right pneumothorax. Pulmonary vascularity is normal. Cardiomediastinal silh ouette is normal. IMPRESSION: 1. Left pleural catheter in place. Continued decrease in size of a small left pneumothorax. 2. Persistent left lower lobe airspace opacity with volume loss. ACT 112: Negative or not required by law. Electronically signed by: Javed Longo M.D. 11/18/2023 7:50 AM
[2023-11-18] MEDS ORDERED: THIAMINE HCL 100 MG TAB PO SCH (09:00)
[2023-11-18] MEDS ORDERED: FOLIC ACID 1 MG TAB PO SCH (09:00)
[2023-11-18] MEDS: MoRPHine SULFATE 2 MG/ML CARP IV ONE (09:56)
--- NOTE | 2023-11-18 10:05 | Pulmonology Progress Note ---
Date of Service November 18, 2023 Assessment & Plan (1) Pneumothorax, left: (2) Asthma-COPD overlap syndrome: (3) Hypoxia: (4) Tobacco use disorder: (5) Abnormal chest CT: Plan IMPRESSION: 63-year-old male with past medical history of COPD, actively smoking presented to the hospital with complaints of left-sided chest pain and shortness of breath He was found to have spontaneous left-sided pneumothorax. Thora vent was placed by ER with decrease in size of the pneumothorax. RECOMMENDATIONS: -- LEFT-sided pneumothorax - Status post Thora vent placement. Appears to have reexpansion on follow-up chest x-ray. Will order CT without contrast to assess lung parenchyma for possible sources, especially the patient with underlying emphysematous lung changes. Continue with pain control as you are. Will reassess a.m. chest x-ray. Hopefully, the lung will reexpand without issue and chest tube can be removed within the next day or 2. In the unfortunate event that this does not occur, patient may require thoracic surgery intervention. Will reassess responsiveness to conservative treatment first. -- Left lower lobe collapse There is possibility of debris within the lumen -- Asthma COPD overlap syndrome - Currently managed on Breo, Spiriva, Singulair, and Daliresp. Would continue while inpatient as well. Not bronchospastic. No role for steroids currently. -- Hypoxia - Likely transient the setting of pneumothorax. Supplemental oxygen as needed. Titrate down to off as able. -- Tobacco use disorder - Patient would greatly benefit from smoking cessation moving forward. Plan: Chest x-ray from today shows decrease in the size of the pneumothorax Retrocardiac opacity still persists which still represents likely atelectasis/collapse of the left lower lobe Continue with Pleur-evac Bronchoscopy today Give 2 mg of morphine on top of the as needed morphine given the pain Please note the above document was generated using voice recognition software. It may contain grammatical, syntax or spelling errors.Any formal questions or concerns about the content, text or information contained within the body of this dictation should be directly addressed to the provider for clarification. Admission and Anticipated Discharge Date Admission Date: November 17, 2023 Subjective Patient seen and examined at bedside. No adverse events overnight Patient has been complaining of discomfort at the site of the chest tube. He also complains of pain when he takes a deep breath and going to the neck. No air leak appreciated on the Pleur-evac Denied any cough Review of Systems 2 Review of Systems: All systems reviewed & are unremarkable except as noted in Subjective Physical Exam 2 Physical Exam: Constitutional: No acute distress HEENT: EOMI, PERRLA Respiratory system: Decreased air entry bilaterally, no wheeze, no rhonchi, mild crackles bilateral lower lobes CVS: S1-S2 positive, no murmurs or gallops Abdomen: Soft, nontender, nondistended, positive bowel sounds x4 Extremities: +2 pulses bilaterally radialis/ dorsalis pedis, no cyanosis, no edema Neuro: Awake alert oriented x3 Psych: Normal mood and affect G/U: No [place] Minimal hematoma around the site of the Thora vent appreciated Skin: no rashes, warm and dry Lymphatic: no cervical or axillary lymphadenopathy Results & Data Results & Data Vital Signs (Past 12 Hours) Vital Signs Temp Pulse Pulse Resp BP BP Pulse Ox 11/18/23 07:54 36.6 C 81 22 153/81 H 97 11/18/23 07:24 76 11/18/23 03:58 36.5 C 77 18 121/77 95 11/18/23 00:23 36.6 C 85 18 122/71 92 O2 Del Method O2 Flow Rate 11/18/23 07:54 Nasal Cannula 2 11/18/23 07:24 11/18/23 03:58 Room Air 11/18/23 00:23 Room Air Laboratory Results 11/18/23 06:32 11/18/23 06:32 PG Care Time/CCT Total # of Minutes Spent Total Time Spent with Patient: Total time spent is greater than 50% in coordination of care (as documented) at patient's floor/unit and/or counseling patient: Coding Level of Care Code 31815 SUB INP/OBS CARE 3/50MIN Diagnoses Pneumothorax, left J93.9 Asthma-COPD overlap syndrome J44.9 Hypoxia R09.02 Tobacco use disorder F17.[address] R93.89
--- NOTE | 2023-11-18 10:46 | Pre Anesthesia Assessment ---
Date of Service November 18, 2023 Pre Sedation Assessment Vital Signs Temp Pulse Pulse Pulse Resp BP BP 11/18/23 10:32 96 H 169/92 H 11/18/23 07:54 36.6 C 81 22 11/18/23 07:24 76 11/18/23 03:58 36.5 C 77 18 121/77 11/18/23 00:23 36.6 C 85 18 122/71 11/17/23 21:47 80 11/17/23 19:56 36.6 C 89 18 159/93 H 11/17/23 19:30 11/17/23 18:33 99 H 11/17/23 18:31 36.5 C 100 H 22 166/80 H 11/17/23 18:31 36.5 C 100 H 22 166/80 H 11/17/23 18:31 11/17/23 18:31 36.5 C 100 H 22 166/80 H 11/17/23 17:04 91 H 11/17/23 14:11 101 H 19 105/72 11/17/23 13:55 100 H 20 112/68 11/17/23 13:30 11/17/23 13:18 94 H 19 163/103 H 11/17/23 13:18 11/17/23 12:59 88 11/17/23 12:30 11/17/23 12:13 36.6 C 110 H 26 H 163/89 H BP Pulse Ox Pulse Ox O2 Del Method O2 Del Method O2 Flow Rate O2 Flow Rate 11/18/23 10:32 97 Oxymask 6 11/18/23 07:54 153/81 H 97 Nasal Cannula 2 11/18/23 07:24 11/18/23 03:58 95 Room Air 11/18/23 00:23 92 Room Air 11/17/23 21:47 11/17/23 19:56 94 Room Air 11/17/23 19:30 Nasal Cannula 2 11/17/23 18:33 11/17/23 18:31 93 Nasal Cannula 2 11/17/23 18:31 93 Nasal Cannula 2 11/17/23 18:31 93 Nasal Cannula 2 11/17/23 18:31 93 Nasal Cannula 2 11/17/23 17:04 11/17/23 14:11 98 Nasal Cannula 2 11/17/23 13:55 95 Nasal Cannula 2 11/17/23 13:30 Room Air 11/17/23 13:18 100 Oxymask 10 11/17/23 13:18 100 Oxymask 10 11/17/23 12:59 11/17/23 12:30 90 Oxymask 11/17/23 12:13 90 Room Air Pre-Sedation Airway Assessment Smoking Status: Current every day smoker Short, Thick Neck: No Thyromental Distance: > or= 3.5 Finger Breadths Oral Cavity: + WNL Mallampati Class: III ASA: ASA4 NPO Status Date of Last Intake of Fluids: 11/17/23 Date of Last Intake of Solid Food: 11/17/23 Procedure Planning Contraindications for Sedation: none Current Medications Reviewed: Yes Notes The planned sedation has been discussed with the patient. Informed Consent was obtained. I have identified the patient, determined the appropriateness of sedation and have assessed the patient immediately prior to the procedure. All medicine(s) and interventions are by my order.
--- NOTE | 2023-11-18 11:25 | Procedure Note ---
Procedure Note: Bronchoscopy Procedure PREOPERATIVE DIAGNOSIS: Left lower lobe collapse/atelectasis POSTOPERATIVE DIAGNOSIS: Mucous plugging of the left lower lobe PROCEDURE PERFORMED: Flexible fiberoptic bronchoscopy with bronchoalveolar lavage and clearing of the airways COMPLICATIONS: None. INDICATION: Clearing the airways PROCEDURE: After obtaining an informed consent, the patient was brought to the Bronchoscopy Suite. The patient had appropriate oxygen, blood pressure, heart rate, and respiratory rate monitoring applied and monitored continuously throughout the procedure. Supplemental oxygen via nasal cannula as per nursing records was applied to the nasopharynx with adequate saturations achieved. Topical anesthesia with nebulized 1% lidocaine was achieved. Subsequent to this, the patient was premedicated with 4 mg of midazolam and 100 mcg of fentanyl. Sedation start time 11 AM, end time 11:10 AM Patient was given 25 mcg of fentanyl 15 minutes prior to sedation start as he was complaining of left-sided chest pain Upper Airway: The oropharynx and larynx were well visualized and showed mild erythema, otherwise negative. There was normal vocal cord motion without masses or lesions. Additional topical anesthesia with 1% lidocaine was applied to the trachea and carlton. The trachea appeared normal.The bronchoscope was then advanced through the carlton, which was sharp. As soon as advance into the distal trachea there was significant thick secretions appreciated coming from the left lower going into the right main. The scope was then advanced into the right main stem and each segment, subsegement in the right upper lobe, right middle lobe and right lower lobe were visualized. There was moderate amount of thick corral secretion in the right main going into the right lower which were suctioned out. There were no other findings including evidence of mass, anatomic distortions, or hemorrhage. The bronchoscope was subsequently withdrawn and advanced into the left mainstem. Again, each segment and subsegment was well visualized. No specific masses or other lesions were identified throughout the tracheobronchial tree on the left. There was moderate amount of thick corral secretion in the left lower lobe which were suctioned out The bronchoscope was then wedged in the left lower lobe anterior segment and bronchoalveolar lavage samples were obtained. 150 ml of saline was instilled and 40 ml of fluid was aspirated back.The bronchoscope was withdrawn and the area was suctioned clear. The bronchoscope was then withdrawn to the mainstem. The area was suctioned clear. The bronchoscope was then withdrawn. The patient tolerated the procedure well without evidence of desaturation or complications. Bronchoalveolar lavage samples were sent for cell count, Gram stain and bacterial culture, AFB culture and smear, fungal culture and smear and cytology. Recommendations: Follow-up micro and cytology Follow-up chest x-ray Please note the above document was generated using voice recognition software. It may contain grammatical, syntax or spelling errors.Any formal questions or concerns about the content, text or information contained within the body of this dictation should be directly addressed to the provider for clarification. [facility] [place]odes (Charges) Pulmonary/Thoracic Procedure 1: Pulmonary and Thoracic: 76878 Bronchoscopy, clear airways Procedure 2: Pulmonary and Thoracic: 18254 Dx bronchoscopy/BAL Sedation/Anesthesia Procedure 1: Sedation/Anesthesia: 13906 Mod Sedation by the same physician;Init15 Min Child Age 5 & Up
--- NOTE | 2023-11-18 11:38 | XRay Report ---
XR chest 1V portable HISTORY: post bronch COMPARISON: Chest 11/18/2023. FINDINGS: There is a small left apical pneumothorax with a maximal pleural gap of 6 mm. This is simil ar to the prior study. Left-sided chest tube is unchanged in position. Patchy left basilar densities have slightly progressed. No mediastinal shift. No acute fractures. The heart is normal in size. The right lung is clear. IMPRESSION: 1. No change in the small left pneumothorax. 2. A left-sided chest tube is unchanged in position. 3. Patchy left basilar densities have slightly progressed consistent with a pneumonia. This could be due to prior aspiration. ACT 112: Negative or not required by law. Electronically signed by: Beau Douglas M.D. 11/18/2023 11:37 AM
--- NOTE | 2023-11-18 11:38 | XRay Report ---
XR chest 1V portable CLINICAL HISTORY: Shortness of breath. COMPARISON STUDY: Chest CT November 17, 2023. Chest radiograph performed earlier today. FINDINGS: Left pleural catheter remains in place. A small left pneumothorax has slightly increased in size since prior exam. Superior pleural separation is 8 mm. Left lower lung opacity persists. There is no right pneumothorax. Cardiomediastinal silhouette is normal. IMPRESSION: 1. Left pleural catheter remains in place. Slight increase in size of a small left pneumothorax. 2. Persistent left basilar opacity which favors atelectasis. ACT 112: Negative or not required by law. Electronically signed by: Javed Longo M.D. 11/18/2023 11:37 AM
[2023-11-18 14:11] LABS: Basophil Body Fluid Man 0 %; Eosinophil Body Fluid Man 10 %; Fluid Mono/Macrophage 14 %; Lymphocyte Body Fluid Man 2 %; Neutrophil Body Fluid Man 74 %
[2023-11-18] MEDS: fentaNYL citrate PF 100 MCG/2 ML VIAL ONE (14:30)
[2023-11-18] MEDS: MIDAZOLAM HCL 5 MG/ML 1 ML VIAL ONE (14:31)
--- NOTE | 2023-11-18 14:50 | XRay Report ---
XR chest 1V portable HISTORY: pneumothorax, new pain COMPARISON: Chest 11/18/2023. FINDINGS: A small left pneumothorax is similar to the prior study. Left basilar airspace opacities pe rsist. The right lung is clear. No significant mediastinal shift. The heart is normal in size. A left -sided chest tube is unchanged in position. There is a small amount of subcutaneous emphysema now see n within the left neck base. No pleural effusions IMPRESSION: 1. A small left pneumothorax is similar to the prior study. 2. Left-sided chest tube is unchanged in position. 3. Left basilar airspace opacities persist. 4. There is a small amount of left neck base subcutaneous emphysema which is new compared to the prio r study. ACT 112: Negative or not required by law. Electronically signed by: Beau Douglas M.D. 11/18/2023 2:48 PM
[2023-11-18] MEDS: methylPREDNISolone 40 MG in SYRINGE 0 ML IV ONE (15:04)
[2023-11-18] MEDS: methylPREDNISolone 125 MG/2 ML VIAL IV STA (15:48)
--- NOTE | 2023-11-18 17:03 | Billing Data ---
Date of Service November 18, 2023 Coding Level of Care Code 17149 SUB INP/OBS CARE MIN
[2023-11-18] MEDS: ACETAMINOPHEN 1,000 MG/100 ML VIAL IV PRN (17:57)
[2023-11-18] MEDS: ALBUT/IPRATROP 3MG/0.5MG NEB 3 ML VIAL INH PRN (18:05)
[2023-11-18] MEDS: LORazepam 2 MG/1 ML VIAL IV PRN (19:25)
[2023-11-18] MEDS: methylPREDNISolone 40 MG in SYRINGE 0 ML IV SCH (20:32)
[2023-11-18] MEDS ORDERED: methylPREDNISolone 125 MG/2 ML VIAL IV SCH (21:00)
--- NOTE | 2023-11-19 07:10 | Hospitalist Progress Note ---
Date of Service November 19, 2023 Assessment & Plan (1) Pneumothorax: (2) Hyponatremia: (3) Pneumothorax, left: (4) Acute exacerbation of chronic obstructive airways disease: (5) Inflammatory arthritis: (6) Asthma-COPD overlap syndrome: (7) Hypoxia: (8) Tobacco use disorder: (9) Abnormal chest CT: Plan Pneumothorax, Left -Worsening SOB at rest x 3 days. CXR on arrival revealed left pneumothorax, Thora-Vent placed in ED. - 11/18/23 LLL bronchial lavage -> mucous plug cleared out; no evidence of malignancy; presence of pulmonary macrophages, respiratory epithelial cells, squamous cells, and inflammatory cells with reactive changes - follow culture results - slight expansion of LLL pneumothorax -> pulmonology: continuous suction -20 for 24hrs, reassess tomorrow 11/20/23 - continue with Unasyn IV, continue IV methylprednisolone -Pain control with Dilaudid PRN - continue daily cxr - if lung continues to fail to reinflate, may need to transfer patient to facility with thoracic surgery. Tachycardia - HR 75-130 over the past day -Pain control improved with Dilaudid this afternoon -EKG obtained which showed sinus tachycardia -Suspect that etiology of tachycardia could be pain and/or steroids Hypoxia -Suspect secondary to pneumothorax as above -Supplemental oxygen via NC as needed to titrate SpO2 88-92% -Continuous pulse oximetry Asthma-COPD Overlap Syndrome -Continue home inhalers: Breo, Spiriva, Singulair, and Daliresp -Incentive spirometry, flutter valve Tobacco Use Disorder -Current everyday tobacco cigarette smoker; 1-2 cigarettes/day -Can add nicotine patch if needed -Encourage smoking cessation Hyponatremia -Na 130 on arrival, 137 today ?Beer potomania -Daily BMP Alcohol Use Disorder -Patient endorses daily alcohol use (6 beers per day) -Denies history of alcohol withdrawal or seizures -AWSS at risk protocol with Ativan as needed -Daily thiamine and folate supplementation Disposition:Med telemetry Full code Regular diet VTE PPx: SCDs Admission and Anticipated Discharge Date Admission Date: November 17, 2023 Supervising Physician Co-Signing Physician Notes I personally examined the patient and verified all rosado points of history and exam, discussed case, and agree with decision making with Dr Sow feeling better overallchest pain far better controlled. Feels like he needs a nebulizer but otherwise not a lot of significant shortness of breath. vitals noted Pleasant resting comfortably in bed no distress. Breathing unlabored chest tube in place. No accessory muscle use no conversational dyspnea. No focal neurodeficits. Skin without rashes pallor or icterus. pneumothorax, pneumonia, COPD exacerbation - ?popped bleb. treat pneumonia/COPD exac. Antibiotics/nebulizers, supportive care. ongoing thoravent. appreciate pulmonary input DVT prophylaxisLovenox otherwise as above Subjective Patient seen and examined at bedside. No acute events overnight aside from mild shortness of breath and ongoing pain from Thora-Vent. Has been able to tolerate meals, denies any concerns about bowel movements or urination. Denies any fever, body aches, chills, chest pain aside from chest tube site, abdominal pain, nausea, or vomiting. Review of Systems Review of Systems: See HPI Physical Exam Physical Exam: constitutional: A&Ox4, appears in mild distress HEENT: anicteric sclerae, EOM intact Pulmonary: coarse breath sounds and wheeze to auscultation of left lung base, limited air movement b/l Cardio: RRR, no murmurs on auscultation GI: normal bowel sounds, abdomen mildly distended, mild tenseness but no guarding, no tenderness to palpation, no HSM Skin: non-jaundiced, no rashes on inspection Results & Data Results & Data Vital Signs (Past 12 Hours) Vital Signs Temp Pulse Pulse Resp BP Pulse Ox O2 Del Method 11/19/23 04:00 36.6 C 83 18 151/86 H 98 Nasal Cannula 11/18/23 23:00 36.4 C L 87 18 160/84 H 98 Nasal Cannula 11/18/23 21:48 88 11/18/23 19:30 36.5 C 103 H 18 130/77 94 Nasal Cannula O2 Flow Rate 11/19/23 04:00 4 11/18/23 23:00 4 11/18/23 21:48 11/18/23 19:30 4 Diagnostic Findings 11/18/23: LLL bronchial lavage: - Negative for malignancy. - Pulmonary macrophages, respiratory epithelial cells, squamous cells and inflammatory cells with reactive changes. Resident Activity Tracking Resident Involvement: Resident Care Provided Care Provided: Adult Hospital Medicine (1) Pneumothorax Pneumothorax type: spontaneous, primary Qualified Code(s): J93.11 - Primary spontaneous pneumothorax
[2023-11-19 08:06] LABS: Basophils # (auto) 0.02 K/uL (0.00-0.20); Basophils % (auto) 0.1 %; Hematocrit (blood only) 40.2 % (42.0-52.0); Immature Granulocytes # (auto) 0.07 K/uL (0.01-0.20); Immature Granulocytes % (auto) 0.4 %; Lymphocytes # (auto) 0.85 K/uL (1.20-3.40); Lymphocytes % (auto) 5.4 %; Mean Corpuscular Hemoglobin 31.8 pg (25.0-34.0); Mean Corpuscular Hgb Conc 34.8 g/dL (32.0-36.0); Mean Corpuscular Volume 91.4 fL (80.0-100.0); Mean Platelet Volume 10.3 fL (9.4-12.4); Monocytes # (auto) 1.06 K/uL (0.11-0.59); Monocytes % (auto) 6.7 %; Neutrophils # (auto) 13.78 K/uL (1.40-6.50); Neutrophils % (auto) 87.4 %; Platelet Count 308 K/uL (130-400); RDW Coefficient of Variation 12.7 % (11.5-14.5); RDW Standard Deviation 42.8 fL (36.4-46.3); White Blood Count 15.78 K/ul (4.8-10.8)
[2023-11-19 08:17] LABS: Calcium 8.3 mg/dl (8.6-10.3); Creatinine Clr Calc Pharmacy 122.4 ml/min; Est GFR (African American) 132.7 ml/min; Est GFR (Non-African American) 114.5 ml/min; Potassium 4.1 mmol/L (3.5-5.1)
--- NOTE | 2023-11-19 10:05 | Pulmonology Progress Note ---
Date of Service November 19, 2023 Assessment & Plan (1) Pneumothorax, left: (2) Asthma-COPD overlap syndrome: (3) Hypoxia: (4) Tobacco use disorder: (5) Abnormal chest CT: Plan IMPRESSION: 63-year-old male with past medical history of COPD, actively smoking presented to the hospital with complaints of left-sided chest pain and shortness of breath He was found to have spontaneous left-sided pneumothorax. Thora vent was placed by ER with decrease in size of the pneumothorax. RECOMMENDATIONS: -- LEFT-sided pneumothorax - Status post Thora vent placement. Appears to have reexpansion on follow-up chest x-ray. Will order CT without contrast to assess lung parenchyma for possible sources, especially the patient with underlying emphysematous lung changes. Continue with pain control as you are. Will reassess a.m. chest x-ray. Hopefully, the lung will reexpand without issue and chest tube can be removed within the next day or 2. In the unfortunate event that this does not occur, patient may require thoracic surgery intervention. Will reassess responsiveness to conservative treatment first. -- Left lower lobe collapse There is possibility of debris within the lumen S/p bronchoscopy 11/18/2023, was mucous plugging of the left lower lobe which was cleared out Follow-up culture -- Asthma COPD overlap syndrome - Currently managed on Breo, Spiriva, Singulair, and Daliresp. Would continue while inpatient as well. Not bronchospastic. No role for steroids currently. -- Hypoxia - Likely transient the setting of pneumothorax. Supplemental oxygen as needed. Titrate down to off as able. -- Tobacco use disorder - Patient would greatly benefit from smoking cessation moving forward. Plan: Unfortunately chest x-ray from today shows increase in size of the left-sided pneumothorax I will put it to continuous suction -20 Continue with negative suction for 24 hours, will reassess tomorrow and see if we can clamp the tube. Continue with pain medication Please note the above document was generated using voice recognition software. It may contain grammatical, syntax or spelling errors.Any formal questions or concerns about the content, text or information contained within the body of this dictation should be directly addressed to the provider for clarification. Admission and Anticipated Discharge Date Admission Date: November 17, 2023 Subjective Patient seen and examined at bedside. No acute distress, notable symptoms overnight He stated he is feeling better compared to yesterday. The pain is better controlled. Has been getting pain medications He was saturating 94% on 2 L nasal cannula, I went down to 1 L. Heart rate was in the 110s Coughing up clear phlegm. Denies any hemoptysis Review of Systems 2 Review of Systems: All systems reviewed & are unremarkable except as noted in Subjective Physical Exam 2 Physical Exam: Constitutional: No acute distress HEENT: EOMI, PERRLA Respiratory system: Decreased air entry bilaterally, no wheeze, no rhonchi, mild crackles bilateral lower lobes CVS: S1-S2 positive, no murmurs or gallops Abdomen: Soft, nontender, nondistended, positive bowel sounds x4 Extremities: +2 pulses bilaterally radialis/ dorsalis pedis, no cyanosis, no edema Neuro: Awake alert oriented x3 Psych: Normal mood and affect G/U: No [place] Minimal hematoma around the site of the Thora vent appreciated Skin: no rashes, warm and dry Lymphatic: no cervical or axillary lymphadenopathy Results & Data Results & Data Vital Signs (Past 12 Hours) Vital Signs Temp Pulse Pulse Resp BP Pulse Ox O2 Del Method 11/19/23 09:50 111 H 19 94 Nasal Cannula 11/19/23 08:08 36.6 C 85 18 160/93 H 96 Nasal Cannula 11/19/23 07:56 75 11/19/23 04:00 36.6 C 83 18 151/86 H 98 Nasal Cannula 11/18/23 23:00 36.4 C L 87 18 160/84 H 98 Nasal Cannula O2 Flow Rate 11/19/23 09:50 4 11/19/23 08:08 2 11/19/23 07:56 11/19/23 04:00 4 11/18/23 23:00 4 Laboratory Results 11/19/23 07:18 11/19/23 07:18 PG Care Time/CCT Total # of Minutes Spent Total Time Spent with Patient: Total time spent is greater than 50% in coordination of care (as documented) at patient's floor/unit and/or counseling patient: Coding Level of Care Code 97968 SUB INP/OBS CARE 2/35MIN Diagnoses Pneumothorax, left J93.9 Asthma-COPD overlap syndrome J44.9 Hypoxia R09.02 Tobacco use disorder F17.[address] R93.89
[2023-11-19] MEDS: KETOROLAC TROMETHAMINE 15 MG/ML VIAL IV PRN (10:13)
--- NOTE | 2023-11-19 10:17 | XRay Report ---
XR chest 1V portable CLINICAL HISTORY: f/u TECHNIQUE: Single frontal radiograph of the chest was obtained. Comparison: Comparison is made to chest radiograph 11/18/2023 FINDINGS: Left chest tube is unchanged. The cardiomediastinal silhouette is normal. Left basilar airspace opaci ties are again seen. Small left apical pneumothorax may be slightly enlarged from prior exam measurin g 15 mm. Subcutaneous emphysema is again seen. IMPRESSION: 1. Interval minimal enlargement of left apical pneumothorax. Chest tube is stable. 2. Additional stable findings as above. ACT 112: Negative or not required by law. Electronically signed by: Issac Walker M.D. 11/19/2023 10:16 AM
--- NOTE | 2023-11-19 13:02 | Electrocardiogram Report ---
Test Reason : Blood Pressure : */* mmHG Vent. Rate : 109 BPM Atrial Rate : 109 BPM P-R Int : 142 ms QRS Dur : 82 ms QT Int : 322 ms P-R-T Axes : 63 50 54 degrees QTcB Int : 433 ms Sinus tachycardia Otherwise normal ECG When compared with ECG of 17-Nov-2023 12:44, No significant change was found Confirmed by Nicolas Robbins ([id number]) on 11/19/2023 1:02:09 PM Referred By: REFERRED SELF Confirmed By: Nicolas Robbins
--- NOTE | 2023-11-19 17:52 | Billing Data ---
Date of Service November 19, 2023 Coding Level of Care Code 70925 SUB INP/OBS CARE MIN
[2023-11-19] MEDS: ALBUT/IPRATROP 3MG/0.5MG NEB 3 ML VIAL NEB ONE (18:09)
[2023-11-19] MEDS ORDERED: Nursing to Pharmacy Communication SCH (19:45)
--- NOTE | 2023-11-20 06:41 | Hospitalist Progress Note ---
Date of Service November 20, 2023 Assessment & Plan (1) Pneumothorax, left: (2) Acute exacerbation of chronic obstructive airways disease: (3) Hypoxia: (4) Asthma-COPD overlap syndrome: (5) Tobacco use disorder: (6) Hyponatremia: (7) Inflammatory arthritis: (8) Abnormal chest CT: Plan Pneumothorax, Left -Worsening SOB at rest x 3 days. CXR on arrival revealed left pneumothorax, Thora-Vent placed in ED. - 11/18/23 LLL bronchial lavage -> mucous plug cleared out; culture reveals Strep pneumoniae; no evidence of malignancy - 11/19/23 slight expansion of LLL pneumothorax -> pulmonology: continuous suction -20 for 24hrs - 11/20/23: per Dr. Hutchins (pulmonology), appears to have reexpansion (improvement) on follow-up chest x-ray, but small apical pneumothorax persists -> Will order chest CT without contrast to assess lung parenchyma for possible sources, especially the patient with underlying emphysematous lung changes - if no adequate lung expansion in next 2-3 days, patient may require thoracic surgery intervention - Pain control with Dilaudid PRN - continue daily cxr LLL pneumonia - dx by bronchial lavage: Strep pneumoniae - continue Unasyn IV -Pain control with Dilaudid prn Asthma-COPD Overlap Syndrome -Continue home inhalers: Breo, Spiriva, Singulair, and Daliresp -Incentive spirometry, flutter valve Tachycardia - HR 75-130 over the past day -Suspect that etiology could be pain Hypoxia -Suspect secondary to pneumothorax as above -Supplemental oxygen via NC as needed to titrate SpO2 88-92% -Continuous pulse oximetry Hyponatremia -Na 130 on arrival, now resolved ?Beer potomania -Daily BMP Tobacco Use Disorder -Current everyday tobacco cigarette smoker; 1-2 cigarettes/day -Can add nicotine patch if needed -Encourage smoking cessation Alcohol Use Disorder -Patient endorses daily alcohol use (6 beers per day) -Denies history of alcohol withdrawal or seizures -AWSS at risk protocol with Ativan as needed -Daily thiamine and folate supplementation Disposition:Med telemetry Full code Regular diet VTE PPx: SCDs Admission and Anticipated Discharge Date Admission Date: November 17, 2023 Supervising Physician Co-Signing Physician Notes I personally examined the patient and verified all rosado points of history and exam, discussed case, and agree with decision making with Dr Paige Continues to feel better. Pain good. Breathing feeling better. Follow-up chest x-ray noted. Awaiting further pulmonary input. vitals noted Pleasant resting comfortably in bed no distress. Breathing un labored chest tube in place. Lungs quiet with faint scattered wheeze and rhonchi but seems to be more clear. Reasonable air entry for him. No accessory muscle use no conversational dyspnea. No focal neurodeficits. Skin without rashes pallor or icterus. pneumothorax, pneumonia, COPD exacerbation - ?popped bleb. treat pneumonia/COPD exac. Antibiotics/nebulizers, supportive care. ongoing thoraventHopefully can DC chest tube soon. No major changes today otherwise. appreciate pulmonary input DVT prophylaxisLovenox otherwise as above Subjective Patient seen and examined at bedside. No acute events overnight aside from mild shortness of breath but is improving. Endorses that he slept better than previous night. Endorses eating well. Continues to be constipated, requested stool softener. Denies any concerns about urination. Denies any fever, body aches, chills, chest pain aside from mild pain at chest tube site, abdominal pain, nausea, or vomiting. Review of Systems Review of Systems: see HPI Physical Exam Physical Exam: constitutional: does not appear in acute distress HEENT: anicteric sclerae, EOM intact Pulmonary: limited air movement b/l, decreased lung sounds LLL, coarse breath sounds posterior to chest tube site Cardio: RRR, no murmurs on auscultation GI: normal bowel sounds, abdomen mildly distended, mild tenseness but no guarding, no tenderness to palpation, no HSM Skin: non-jaundiced, no rashes on inspection Results & Data Results & Data Vital Signs (Past 12 Hours) Vital Signs Temp Pulse Pulse Resp BP Pulse Ox O2 Del Method 11/20/23 03:09 36.6 C 78 17 151/87 H 98 Room Air 11/19/23 22:24 84 11/19/23 22:07 36.7 C 87 18 156/92 H 97 Nasal Cannula 11/19/23 19:30 Nasal Cannula 11/19/23 19:05 37.1 C 117 H 18 157/90 H 94 Nasal Cannula O2 Flow Rate 11/20/23 03:09 11/19/23 22:24 11/19/23 22:07 3 11/19/23 19:30 3 11/19/23 19:05 2.5 Resident Activity Tracking Resident Involvement: Resident Care Provided Care Provided: Adult Hospital Medicine
[2023-11-20 06:51] LABS: Basophils # (auto) 0.04 K/uL (0.00-0.20); Basophils % (auto) 0.3 %; Eosinophils # (auto) 0.06 K/uL (0.00-0.50); Eosinophils % (auto) 0.4 %; Hematocrit (blood only) 37.4 % (42.0-52.0); Hemoglobin 12.6 g/dl (14.0-18.0); Immature Granulocytes # (auto) 0.08 K/uL (0.01-0.20); Immature Granulocytes % (auto) 0.6 %; Lymphocytes % (auto) 17.5 %; Mean Corpuscular Hgb Conc 33.7 g/dL (32.0-36.0); Mean Corpuscular Volume 92.1 fL (80.0-100.0); Mean Platelet Volume 10.1 fL (9.4-12.4); Monocytes # (auto) 1.37 K/uL (0.11-0.59); Monocytes % (auto) 9.6 %; Neutrophils # (auto) 10.26 K/uL (1.40-6.50); Neutrophils % (auto) 71.6 %; Platelet Count 277 K/uL (130-400); Red Blood Count 4.06 M/uL (4.70-6.10); White Blood Count 14.31 K/ul (4.8-10.8)
--- NOTE | 2023-11-20 07:47 | Pulmonology Progress Note ---
Date of Service November 20, 2023 Assessment & Plan (1) Pneumothorax, left: (2) Asthma-COPD overlap syndrome: (3) Hypoxia: (4) Tobacco use disorder: (5) Abnormal chest CT: Plan IMPRESSION: 63-year-old male with past medical history of COPD, actively smoking presented to the hospital with complaints of left-sided chest pain and shortness of breath He was found to have spontaneous left-sided pneumothorax. Thora vent was placed by ER with decrease in size of the pneumothorax. RECOMMENDATIONS: -- LEFT-sided pneumothorax - Status post Thora vent placement. Appears to have reexpansion on follow-up chest x-ray. Will order CT without contrast to assess lung parenchyma for possible sources, especially the patient with underlying emphysematous lung changes. Continue with pain control as you are. Will reassess a.m. chest x-ray. Hopefully, the lung will reexpand without issue and chest tube can be removed within the next day or 2. In the unfortunate event that this does not occur, patient may require thoracic surgery intervention. Will reassess responsiveness to conservative treatment first. -- Left lower lobe collapse There is possibility of debris within the lumen S/p bronchoscopy 11/18/2023, was mucous plugging of the left lower lobe which was cleared out Follow-up culture -- Asthma COPD overlap syndrome - Currently managed on Breo, Spiriva, Singulair, and Daliresp. Would continue while inpatient as well. Not bronchospastic. No role for steroids currently. -- Hypoxia - Likely transient the setting of pneumothorax. Supplemental oxygen as needed. Titrate down to off as able. -- Tobacco use disorder - Patient would greatly benefit from smoking cessation moving forward. Plan: Chest x-ray from today shows improvement in the size of the pneumothorax, small apical pneumothorax persists. Chest tube was put to waterseal. Will repeat a chest x-ray later today. If there is any worsening in the size of the pneumothorax then we will add back to suction Continue with pain medication Please note the above document was generated using voice recognition software. It may contain grammatical, syntax or spelling errors.Any formal questions or concerns about the content, text or information contained within the body of this dictation should be directly addressed to the provider for clarification. Admission and Anticipated Discharge Date Admission Date: November 17, 2023 Subjective Patient seen and examined at bedside. No acute distress, no adverse events overnight Stated that the chest pain is better controlled with medications He was getting nebulizer treatment at the time of examination Denies any significant cough. Bringing up clear phlegm. No hemoptysis No headache or blurry vision Fair appetite Review of Systems 2 Review of Systems: All systems reviewed & are unremarkable except as noted in Subjective Physical Exam 2 Physical Exam: Constitutional: No acute distress HEENT: EOMI, PERRLA, subcu emphysema appreciated in the left neck and anterior chest around the chest tube site Respiratory system: Decreased air entry bilaterally, no wheeze, no rhonchi, mild crackles bilateral lower lobes CVS: S1-S2 positive, no murmurs or gallops Abdomen: Soft, nontender, nondistended, positive bowel sounds x4 Extremities: +2 pulses bilaterally radialis/ dorsalis pedis, no cyanosis, no edema Neuro: Awake alert oriented x3 Psych: Normal mood and affect G/U: No [place] Minimal hematoma around the site of the Thora vent appreciated Skin: no rashes, warm and dry Lymphatic: no cervical or axillary lymphadenopathy Results & Data Results & Data Vital Signs (Past 12 Hours) Vital Signs Temp Pulse Pulse Resp BP Pulse Ox O2 Del Method 11/20/23 03:09 36.6 C 78 17 151/87 H 98 Room Air 11/19/23 22:24 84 11/19/23 22:07 36.7 C 87 18 156/92 H 97 Nasal Cannula O2 Flow Rate 11/20/23 03:09 11/19/23 22:24 11/19/23 22:07 3 Laboratory Results 11/20/23 06:20 PG Care Time/CCT Total # of Minutes Spent Total Time Spent with Patient: Total time spent is greater than 50% in coordination of care (as documented) at patient's floor/unit and/or counseling patient: Coding Level of Care Code 17679 SUB INP/OBS CARE 2/35MIN Diagnoses Pneumothorax, left J93.9 Asthma-COPD overlap syndrome J44.9 Hypoxia R09.02 Tobacco use disorder F17.[address] R93.89
[2023-11-20 07:49] LABS: Creatinine Clr Calc Pharmacy 117.5 ml/min; Est GFR (African American) 127.6 ml/min; Est GFR (Non-African American) 110.1 ml/min; Potassium 3.7 mmol/L (3.5-5.1)
--- NOTE | 2023-11-20 08:11 | XRay Report ---
XR chest 1V portable CLINICAL HISTORY: f/u COMPARISON STUDY: Chest CT November 17, 2023. Chest radiograph November 19, 2023. FINDINGS: Left pleural catheter is in place. Gas within the left neck and chest wall has mildly incre ased. A small left pneumothorax has decreased in size. Left basilar opacity has slightly progressed. A small left pleural effusion is increased. There is no right pneumothorax. Cardiomediastinal silhoue tte is stable. There is mild interstitial thickening. IMPRESSION: 1. Left pleural catheter in place. Decrease in size of a small left pneumothorax. Mild increase in ga s within the left chest wall and left neck. 2. Increase in left basilar opacity and a small left pleural effusion. 3. Pulmonary vascular congestion. ACT 112: Negative or not required by law. Electronically signed by: Javed Longo M.D. 11/20/2023 8:10 AM
[2023-11-20] MEDS: ENOXAPARIN INJ 40 MG/0.4 ML SYR SQ SCH (08:46)
[2023-11-20] MEDS: POLYETHYLENE (MIRALAX) 17 GM PACK PO PRN (13:12)
--- NOTE | 2023-11-20 15:50 | XRay Report ---
XR chest 1V portable CLINICAL HISTORY: f/u TECHNIQUE: Single frontal radiograph of the chest was obtained. Comparison: Comparison is made to chest radiograph 11/20/2023 FINDINGS: Redemonstration of a left chest tube. The cardiomediastinal silhouette is normal. Linear densities at the left lung base are again seen compatible with atelectasis. No evidence of pleural effusion or pn eumothorax. Subcutaneous emphysema is seen. IMPRESSION: Pneumothorax is not well seen on today's exam. Left chest tube is unchanged. ACT 112: Negative or not required by law. Electronically signed by: Issac Walker M.D. 11/20/2023 3:47 PM
--- NOTE | 2023-11-20 18:20 | Billing Data ---
Date of Service November 20, 2023 Coding Level of Care Code 62122 SUB INP/OBS CARE MIN
[2023-11-21 06:49] LABS: Basophils # (auto) 0.05 K/uL (0.00-0.20); Basophils % (auto) 0.5 %; Eosinophils # (auto) 0.77 K/uL (0.00-0.50); Eosinophils % (auto) 7.8 %; Hematocrit (blood only) 41.8 % (42.0-52.0); Immature Granulocytes # (auto) 0.06 K/uL (0.01-0.20); Immature Granulocytes % (auto) 0.6 %; Lymphocytes # (auto) 2.06 K/uL (1.20-3.40); Lymphocytes % (auto) 20.7 %; Mean Corpuscular Hgb Conc 33.5 g/dL (32.0-36.0); Mean Corpuscular Volume 92.5 fL (80.0-100.0); Mean Platelet Volume 9.9 fL (9.4-12.4); Monocytes # (auto) 1.18 K/uL (0.11-0.59); Monocytes % (auto) 11.9 %; Neutrophils # (auto) 5.81 K/uL (1.40-6.50); Neutrophils % (auto) 58.5 %; Platelet Count 338 K/uL (130-400); RDW Coefficient of Variation 12.9 % (11.5-14.5); Red Blood Count 4.52 M/uL (4.70-6.10); White Blood Count 9.93 K/ul (4.8-10.8)
[2023-11-21 07:06] LABS: BUN Creatinine Ratio 20.6 (10-20); Calcium 8.7 mg/dl (8.6-10.3); Creatinine Clr Calc Pharmacy 87.7 ml/min; Est GFR (Non-African American) 100.9 ml/min
--- NOTE | 2023-11-21 08:45 | XRay Report ---
XR chest 1V portable CLINICAL HISTORY: f/u COMPARISON STUDY: Chest radiograph November 20, 2023 at 2:56 PM. FINDINGS: Left pleural catheter remains in place. There is a trace left pneumothorax. Left basilar op acity persists. There is no right pneumothorax. Gas within the left chest wall and neck is similar to prior exam. IMPRESSION: 1. Left pleural catheter in place. Trace left pneumothorax. 2. Persistent left basilar opacity. ACT 112: Negative or not required by law. Electronically signed by: Javed Longo M.D. 11/21/2023 8:43 AM
--- NOTE | 2023-11-21 09:25 | Pulmonology Progress Note ---
Date of Service November 21, 2023 Assessment & Plan (1) Pneumothorax, left: (2) Asthma-COPD overlap syndrome: (3) Hypoxia: (4) Tobacco use disorder: (5) Abnormal chest CT: Plan IMPRESSION: 63-year-old male with past medical history of COPD, actively smoking presented to the hospital with complaints of left-sided chest pain and shortness of breath He was found to have spontaneous left-sided pneumothorax. Thora vent was placed by ER with decrease in size of the pneumothorax. RECOMMENDATIONS: -- LEFT-sided pneumothorax - Status post Thora vent placement. Appears to have reexpansion on follow-up chest x-ray. Will order CT without contrast to assess lung parenchyma for possible sources, especially the patient with underlying emphysematous lung changes. Continue with pain control as you are. Will reassess a.m. chest x-ray. Hopefully, the lung will reexpand without issue and chest tube can be removed within the next day or 2. In the unfortunate event that this does not occur, patient may require thoracic surgery intervention. Will reassess responsiveness to conservative treatment first. -- Left lower lobe collapse There is possibility of debris within the lumen S/p bronchoscopy 11/18/2023, was mucous plugging of the left lower lobe which was cleared out Follow-up culture -- Asthma COPD overlap syndrome - Currently managed on Breo, Spiriva, Singulair, and Daliresp. Would continue while inpatient as well. Not bronchospastic. No role for steroids currently. -- Hypoxia - Likely transient the setting of pneumothorax. Supplemental oxygen as needed. Titrate down to off as able. -- Tobacco use disorder - Patient would greatly benefit from smoking cessation moving forward. Plan: Chest x-ray from today does not show any significant change compared to yesterday afternoon. Minimal small apical pneumothorax persists while the chest tube is on waterseal. I had called the nurse to clamp the chest tube. Instead she discontinued the chest tube and threw it away, while putting just Thora Vent. With Thora vent putting her On still means the patient is on waterseal. I asked the nurse to get the Thora vent Or connectors so that we can clamp the tube. Will repeat a chest x-ray around 3 PM while the chest tube is clamped and if there is no significant worsening then we will consider removing the Thora vent today Continue with pain medication Please note the above document was generated using voice recognition software. It may contain grammatical, syntax or spelling errors.Any formal questions or concerns about the content, text or information contained within the body of this dictation should be directly addressed to the provider for clarification. Admission and Anticipated Discharge Date Admission Date: November 17, 2023 Subjective Patient seen and examined at bedside. No acute distress, no AutoSense overnight He said he is feeling better. Still gets short of breath on exertion. Pain of the chest tube site is better controlled Occasional cough with clear phlegm, no hemoptysis Fair appetite, no nausea vomiting Review of Systems 2 Review of Systems: All systems reviewed & are unremarkable except as noted in Subjective Physical Exam 2 Physical Exam: Constitutional: No acute distress HEENT: EOMI, PERRLA, subcu emphysema appreciated in the left neck and anterior chest around the chest tube site Respiratory system: Decreased air entry bilaterally, no wheeze, no rhonchi, mild crackles bilateral lower lobes CVS: S1-S2 positive, no murmurs or gallops Abdomen: Soft, nontender, nondistended, positive bowel sounds x4 Extremities: +2 pulses bilaterally radialis/ dorsalis pedis, no cyanosis, no edema Neuro: Awake alert oriented x3 Psych: Normal mood and affect G/U: No [place] Minimal hematoma around the site of the Thora vent appreciated Skin: no rashes, warm and dry Lymphatic: no cervical or axillary lymphadenopathy Results & Data Results & Data Vital Signs (Past 12 Hours) Vital Signs Temp Pulse Pulse Resp BP BP Pulse Ox 11/21/23 08:12 36.4 C 79 20 168/98 H 96 11/21/23 07:20 76 11/21/23 02:40 36.6 C 79 18 155/89 H 97 11/20/23 23:46 83 11/20/23 23:12 11/20/23 23:02 37 C 81 18 177/113 H 98 11/20/23 22:26 77 18 94 O2 Del Method O2 Flow Rate 11/21/23 08:12 Nasal Cannula 2 11/21/23 07:20 11/21/23 02:40 Nasal Cannula 2 11/20/23 23:46 11/20/23 23:12 Nasal Cannula 3 11/20/23 23:02 Nasal Cannula 11/20/23 22:26 Nasal Cannula 2 Laboratory Results 11/21/23 06:18 11/21/23 06:18 PG Care Time/CCT Total # of Minutes Spent Total Time Spent with Patient: Total time spent is greater than 50% in coordination of care (as documented) at patient's floor/unit and/or counseling patient: Coding Level of Care Code 20984 SUB INP/OBS CARE 2/35MIN Diagnoses Pneumothorax, left J93.9 Asthma-COPD overlap syndrome J44.9 Hypoxia R09.02 Tobacco use disorder F17.[address] R93.89
--- NOTE | 2023-11-21 11:20 | Hospitalist Progress Note ---
Date of Service November 21, 2023 Assessment & Plan (1) Pneumothorax, left: (2) Acute exacerbation of chronic obstructive airways disease: (3) Hypoxia: (4) Asthma-COPD overlap syndrome: (5) Tobacco use disorder: (6) Hyponatremia: (7) Inflammatory arthritis: (8) Abnormal chest CT: Plan Pneumothorax, Left -Worsening SOB at rest x 3 days. CXR on arrival revealed left pneumothorax, Thora-Vent placed in ED. - per AM cxr, appears to have decreased in size - Pain control with Dilaudid PRN - PM cxr at 4pm, compare with AM - follow pulmonology note LLL pneumonia - dx by bronchial lavage: Strep pneumoniae - continue Unasyn IV, switch to Augmentin PO in preparation for discharge pending clinical status post-chest tube extraction -Pain control with Dilaudid prn Asthma-COPD Overlap Syndrome -Continue home inhalers: Breo, Spiriva, Singulair, and Daliresp -Incentive spirometry, flutter valve Tachycardia - resolving, HR 70-100 over the past day -Suspect that etiology could be pain Hypoxia -Suspect secondary to pneumothorax as above -Supplemental oxygen via NC as needed to titrate SpO2 88-92% -Continuous pulse oximetry Hyponatremia -Na 130 on arrival, now resolved ?Beer potomania -Daily BMP Tobacco Use Disorder -Current everyday tobacco cigarette smoker; 1-2 cigarettes/day -Can add nicotine patch if needed -Encourage smoking cessation Alcohol Use Disorder -Patient endorses daily alcohol use (6 beers per day) -Denies history of alcohol withdrawal or seizures -AWSS at risk protocol with Ativan as needed -Daily thiamine and folate supplementation Disposition:Med telemetry Full code Regular diet VTE PPx: SCDs Admission and Anticipated Discharge Date Admission Date: November 17, 2023 Supervising Physician Co-Signing Physician Notes I personally examined the patient and verified all rosado points of history and exam, discussed case, and agree with decision making with Dr Paige Subjective Patient seen and examined at bedside, endorses feeling well with no significant SOB or pain. Had the vacuum and tubing removed from chest tube port, denies pain around insertion site nor with deep inspiration. Only notes that when he went to use the bathroom and had successful regular stool (started Miralax yesterday), he started feeling a bit short of breath due to being off his O2 for a few minutes. Endorses occasional cough with clear phlegm without blood. Had been able to eat well with no nausea or vomiting nor abdominal pain. Review of Systems Review of Systems: per HPI Results & Data Results & Data Vital Signs (Past 12 Hours) Vital Signs Temp Pulse Pulse Resp BP BP Pulse Ox 11/21/23 10:58 11/21/23 08:12 36.4 C 79 20 168/98 H 96 11/21/23 07:20 76 11/21/23 02:40 36.6 C 79 18 155/89 H 97 11/20/23 23:46 83 O2 Del Method O2 Flow Rate 11/21/23 10:58 Nasal Cannula 2.5 11/21/23 08:12 Nasal Cannula 2 11/21/23 07:20 11/21/23 02:40 Nasal Cannula 2 11/20/23 23:46
[2023-11-21 12:04] VITALS: RESP 18
[2023-11-21 15:03] VITALS: TEMP 98.1; O2SAT 93
--- NOTE | 2023-11-21 15:12 | XRay Report ---
XR chest 1V portable CLINICAL HISTORY: f/u TECHNIQUE: Single frontal radiograph of the chest was obtained. Comparison: Comparison is made to chest radiograph 11/21/2023 FINDINGS: Left pleural catheter is in place. The cardiomediastinal silhouette is normal. Left basilar airspace opacity is unchanged. 2 mm left pneumothorax is seen. Subcutaneous emphysema is seen. IMPRESSION: 1. Pleural catheter is unchanged with trace left pneumothorax. 2. Left basilar opacity. ACT 112: Negative or not required by law. Electronically signed by: Issac Walker M.D. 11/21/2023 3:10 PM
--- NOTE | 2023-11-21 15:56 | Procedure Note ---
Procedure Note Date of Service November 21, 2023 Procedure: Thora vent removal Sales Trader: Dr. Ismael Hutchins Indication: No worsening of pneumothorax with chest tube clamped Consent: Verbal consent obtained from the patient Procedure: Under aseptic precautions, the additional dressing of the Thora vent was taken off. On exhalation total vent was removed. The catheter was found to be intact. After cleaning it with alcohol swab. Vaseline gauze was applied followed by 4 x 4 and dressed with silk tape The patient tolerated the procedure without obvious complication Complications: None Blood loss: None [facility] Procedure Codes (Charges) Pulmonary/Thoracic Procedure 1: Pulmonary and Thoracic: 24468 Remove lung catheter Coding CPT Codes Pulmonary/Thoracic - Pulmonary and Thoracic: 46048 Remove lung catheter ([id number]) Additional Codes Date of Service ([email or web address])
--- NOTE | 2023-11-21 16:12 | XRay Report ---
XR chest 1V portable CLINICAL HISTORY: Do expiratory film please TECHNIQUE: Single frontal radiograph of the chest was obtained. Comparison: Comparison is made to chest radiograph 11/21/2023 FINDINGS: Chest tube is unchanged. The cardiomediastinal silhouette is normal. Left lower lung airspace opacit y is again seen. Left apical pneumothorax is not well seen on this exam. Subcutaneous emphysema is un changed. IMPRESSION: Left pneumothorax is less well seen on this exam. Left chest tube remains in place along with left ba silar opacity. ACT 112: Negative or not required by law. Electronically signed by: Issac Walker M.D. 11/21/2023 4:10 PM
--- NOTE | 2023-11-21 18:07 | Discharge Summary ---
Discharge Summary Date of Service November 21, 2023 Principal Dx & Hospital Course #1 = Principal Diagnosis (1) Pneumothorax, left: (2) Acute exacerbation of chronic obstructive airways disease: (3) Hypoxia: (4) Asthma-COPD overlap syndrome: (5) Tobacco use disorder: (6) Hyponatremia: (7) Inflammatory arthritis: (8) Abnormal chest CT: Plan Pneumothorax, Left -now improved post chest tube. spontaneous, but in context of pneumonia w COPD/emphysema (?popped bleb) -safe/stable for home -outpt f/u LLL pneumonia - dx by bronchial lavage: Strep pneumoniae - improved on unasyn - home on augmentin Asthma-COPD Overlap Syndrome -Continue home inhalers: Breo, Spiriva, Singulair, and Daliresp Hypoxia -was concerned that he would need home O2 - ambulation showed pulse ox 91% on room air - safe for now Hyponatremia -improved Tobacco Use Disorder -Current everyday tobacco cigarette smoker; 1-2 cigarettes/day -Can add nicotine patch if needed -Encourage smoking cessation Alcohol Use Disorder -Patient endorses daily alcohol use (6 beers per day) -Denies history of alcohol withdrawal or seizures -AWSS at risk protocol with Ativan as needed -Daily thiamine and folate supplementation safe/stable for home Notes For Next Care Provider Medication Changes From Visit augmentin, thiamine, folate Admission HPI Per Admitting Provider Allen is a 63-year-old male with PMH of asthmaCOPD overlap syndrome, alcohol use, tobacco use, severe persistent asthma, eosinophilic asthma, pseudogout, and inflammatory arthritis. He presented on 11/16 for worsening SOB x 3 days. Initially, he was exposed to some dust while working on a project over the weekend, and thought this was the cause of his SOB. However, his SOB worsened as the weekend went on. He endorses SOB both at rest and with exertion. For instance, he said he can barely walk to the bathroom today, and had to take 2 tries to get up the steps. He has been taking his home inhalers consistently, and using a nebulizer, which she reports helps for a short period of time. Additionally, he has been using his 's supplemental oxygen (3L NC) over the past 2 days; normally he is not on supplemental oxygen at baseline. No sick contacts. He took his regular morning medicines today. No recent change in medications. He is a current everyday tobacco cigarette smoker; 1 to 2 cigarettes/day. He does report daily alcohol use (6 beers per day), with last drink being yesterday on 11/15. He denies history of alcohol withdrawal or seizures. Following Thora vent placement, he does endorse left-sided chest pain which he rates 7/10 at present; exacerbated by movements; some radiation to the left shoulder and down the left arm. He denies any recent injuries or trauma to the chest wall. To his knowledge, he has never had a pneumothorax in the past. Patient is mildly tachycardic around 100 bpm at time of admission; SpO2 95% on 2L NC. ED course: DuoNeb 3 mL Prednisone 50 mg p.o. Lorazepam 1 mg IV Morphine 2 mg IV Zofran 4 mg IV Xylocaine 2% ROS: Patient endorses chest tightness, dizziness, lightheadedness, SOB at rest and with exertion, productive cough (white sputum production), pleuritic chest pain, and left-sided chest pain rating down the left arm. Patient denies fever, chills, night sweats, orthopnea, VARGAS, hemoptysis, abdominal pain, or N/V/D. Updated Medication List Medication Instructions Recorded Confirmed Type fluticasone furoate 200 1 inh inhalation DAILY #3 Inhalers 02/26/23 11/17/23 Rx mcg-vilanterol 25 mcg/dose inhalation powder (Breo Ellipta) tiotropium bromide 2.5 2 puff inhalation DAILY #4 grams 08/11/23 11/17/23 Rx mcg/actuation mist for inhalation (Spiriva Respimat) albuterol sulfate 90 mcg/actuation 2 inh inhalation QID PRN shortness 09/25/23 11/17/23 Rx aerosol inhaler (Ventolin HFA) of breath or wheezing #3 Inhalers diclofenac sodium 75 mg 75 mg PO BID #60 tabs 10/03/23 11/17/23 Rx tablet,delayed release montelukast 10 mg tablet 10 mg PO DAILY #90 tabs 10/22/23 11/17/23 Rx ipratropium 0.5 mg-albuterol 3 mg 3 ml inhalation Q6H PRN wheezing 10/28/23 11/17/23 Rx (2.5 mg base)/3 mL nebulization #90 mL soln roflumilast 500 mcg tablet 500 mcg PO DAILY #90 tabs 10/31/23 11/17/23 Rx (Daliresp) amoxicillin 875 mg-potassium 1 tab PO Q12H #10 tabs 11/21/23 Rx clavulanate 125 mg tablet Hospital Stay Data Consultations 11/17/23 14:02 ED Decision to Admit Stat 11/17/23 18:54 Consult Pulmonology Routine Procedures Performed Operation Date: 11/18/23 10:30 Actual Procedures p Bronchoscopy Res[facility] - [facility] Diagnostic Imagining Performed 11/17/23 14:13 CT chest diagnostic wo con Stat Pending Results Patient Have Any Pending Studies at Discharge: No Discharge Instructions Given to Patient (Per Discharging Provider) pneumothorax (collapsed lung) -it appears what happened was that you got a pneumonia - then the pneumonia caused lung inflammation and air trapping - this then increased the pressure in your chest. when people have emphysema, the emphysema are little burned out pockets - so those can then pop with the increase in pressure -fortunately while it took a while, the lung now appears to be re-inflated. the pneumonia is getting better. we'll have you finish out a course of antibiotics with augmentin twice a day for another 5 days. -to keep your lungs as open as possible, definitely don't miss your regular inhalers, and take your rescue inhalers/nebulizers as often as you feel like you need -definitely avoid anything that puts a lot of pressure across your chest (heavy lifting, swimming) and avoid any air travel -- all for about the next month ---follow up with your family doc next week, and with pulmonary in ~2-4 weeks Total Time Total Time Spent Total Time Spent (In Minutes): <30
[2023-11-21 18:09] VITALS: BP 155/89; PULSE 107
--- NOTE | 2023-11-21 18:12 | Billing Data ---
Date of Service November 21, 2023 Coding Level of Care Code 18869 IN/OBS DISCH 30 MIN/LESS
== END 2023-11-21 18:38 | disposition home or self-care (01) | DRG 199 ==
LOC: ED 12:11 → 2N 14:40 → SUATTDRO 14:40 → 2N 18:15